=== PATIENT | male | born 1945 | race American Indian/Alaskan Native ===

== ENCOUNTER 2017-01-04 07:37 | Inpatient (IN) | payer MEDICARE ==
[2017-01-04] MEDS ORDERED: KETOROLAC 60 MG/2 ML VIAL IVP STA (07:55)
[2017-01-04] MEDS ORDERED: IPRATROPIUM-ALBUTEROL 3 ML NEB INHALATION STA (07:55)
--- NOTE | 2017-01-04 07:59 | ED ---
General Adult HPI - General Chief complaint: Extremity Problem,Nontraumatic Stated complaint: LEFT SIDE PAIN, FULL SIDE Time Seen by Provider: 01/04/17 07:40 Source: patient, RN notes reviewed Mode of arrival: ambulatory Limitations: no limitations - History of Present Illness Initial comments: This is a 71-year-old male who presents to the emergency department complaining of left shoulder pain and left hip pain and left lower leg pain. Patient states his been ongoing for a month and certain movements make it worse and if he lays on that side it makes it worse as well. Patient states he doesn't remember injuring those areas but the pain is getting worse and worse to the point where he can't stand it anymore. Patient states he has not seen his doctor in the last month for this. She denies any redness or any swelling. Patient denies any numbness or tingling. Patient denies any neck pain or headache. Patient does state he has a history of asthma and COPD. Patient states he quit smoking 8 years ago. Patient denies any recent fevers or chills. Patient denies any abdominal pain patient denies nausea vomiting or diarrhea. Patient denies any back pain - Related Data Home Medications Medication Instructions Recorded Confirmed Albuterol Inhaler [Ventolin Hfa 1 - 2 puff INHALATION RT-QID PRN 01/30/16 Inhaler] Albuterol Nebulized [Ventolin 2.5 mg INHALATION RT-Q4H PRN 08/24/16 08/24/16 Nebulized] Budesonide-Formot 160-4.5 Mcg 2 puff INHALATION RT-BID 08/24/16 08/24/16 [Symbicort 160-4.5 Mcg Inhaler] Metoprolol Tartrate [Lopressor] 12.5 mg PO BID 08/24/16 08/24/16 Naproxen 500 mg PO BID PRN 08/24/16 08/24/16 Omeprazole 40 mg PO AC-BRKFST 08/24/16 08/24/16 Previous Rx's Medication Instructions Recorded Cefuroxime Axetil [Ceftin] 500 mg PO BID #20 tablet 08/28/16 Allergies Allergy/AdvReac Type Severity Reaction Status Date / Time No Known Allergies Allergy Verified 01/04/17 07:46 Review of Systems ROS Statement: Those systems with pertinent positive or pertinent negative responses have been documented in the HPI. ROS Other: All systems not noted in ROS Statement are negative. Past Medical History Past Medical History: GERD/Reflux, Hypertension Additional Past Medical History / Comment(s): maleria, prn home O2 use History of Any Multi-Drug Resistant Organisms: None Reported Past Surgical History: Bowel Resection Additional Past Surgical History / Comment(s): colonoscopy Past Anesthesia/Blood Transfusion Reactions: No Reported Reaction Past Psychological History: No Psychological Hx Reported Smoking Status: Former smoker Past Alcohol Use History: Daily Past Drug Use History: None Reported - Past Family History Father History Unknown: Yes Mother Family Medical History: COPD Sister(s) Family Medical History: No Reported History Brother(s) Family Medical History: No Reported History Daughter(s) Family Medical History: Myocardial Infarction ([place]) Son(s) Family Medical History: No Reported History General Exam - General Exam Comments Initial Comments: GENERAL: Patient is well-developed and well-nourished. Patient is nontoxic and well- hydrated and is in mild distress. ENT: Neck is soft and supple. No significant lymphadenopathy is noted. Oropharynx is clear. Moist mucous membranes. Neck has full range of motion without eliciting any pain. EYES: The sclera were anicteric and conjunctiva were pink and moist. Extraocular movements were intact and pupils were equal round and reactive to light. Eyelids were unremarkable. PULMONARY: Patient has diffuse expiratory wheezing CARDIOVASCULAR: Patient is tachycardic. ABDOMEN: Soft and nontender with normal bowel sounds. No palpable organomegaly was noted. There is no palpable pulsatile mass. SKIN: Skin is clear with no lesions or rashes and otherwise unremarkable. NEUROLOGIC: Patient is alert and oriented x3. Cranial nerves II through XII are grossly intact. Motor and sensory are also intact. Normal speech, volume and content. Symmetrical smile. MUSCULOSKELETAL: Normal extremities with adequate strength and full range of motion. 1+ edema bilaterally. Patient's shoulder hurts when he moves it in certain directions but is not always in the same direction. Patient's hip hurts with external rotation in the lower leg hurts when he bends his knee. There is no areas of swelling or redness no indication of any trauma. LYMPHATICS: No significant lymphadenopathy is noted PSYCHIATRIC: Normal psychiatric evaluation. Normal interpersonal interactions appears functionally intact in deals appropriately with others. No signs of depression. No signs of anxiety. Limitations: no limitations Course Vital Signs 01/04/17 01/04/17 01/04/17 07:40 08:06 08:15 Temperature 98.8 F Pulse Rate 108 H 84 88 Respiratory 20 Rate Blood Pressure 159/73 O2 Sat by Pulse 100 Oximetry 01/04/17 08:40 Temperature Pulse Rate 95 Respiratory 20 Rate Blood Pressure 132/61 O2 Sat by Pulse 100 Oximetry Medical Decision Making - Medical Decision Making Patient's chest x-ray shows no acute abnormality. Shoulder x-ray shows no acute abnormality. Hip and pelvis x-ray shows no acute abnormality Patient had a breathing treatment in the emergency department after I listened to him he sounded much improved he did state he felt better. Patient's hemoglobin was 6.4 slightly gave the patient 1 unit of packed red blood cells and admitted the patient I spoke with Dr. Sterling admitted the patient and wrote admitting orders. EKG shows normal sinus rhythm at 91 bpm UT interval 170 QRS is 86 QT interval 370 QTC is 455 patient's EKG shows a little ST segment depression inferiorly when compared to an old EKG. A troponin will be added to the patient's labwork - Lab Data Result diagrams: 01/04/17 08:10 01/04/17 08:10 Lab Results 01/04/17 01/04/17 01/04/17 Range/Units 08:10 08:10 08:10 WBC 13.7 H (3.8-10.6) k/uL RBC 3.35 L (4.30-5.90) m/uL Hgb 6.4 L* (13.0-17.5) gm/dL Hct 24.4 L (39.0-53.0) % MCV 72.8 L (80.0-100.0) fL MCH 19.0 L (25.0-35.0) pg MCHC 26.1 L (31.0-37.0) g/dL RDW 18.9 H (11.5-15.5) % Plt Count 235 (150-450) k/uL Neutrophils % 63 % Lymphocytes % 13 % Monocytes % 6 % Eosinophils % 14 % Basophils % 1 % Neutrophils # 8.5 H (1.3-7.7) k/uL Lymphocytes # 1.8 (1.0-4.8) k/uL Monocytes # 0.8 (0-1.0) k/uL Eosinophils # 2.0 H (0-0.7) k/uL Basophils # 0.1 (0-0.2) k/uL Polychromasia Present Hypochromasia Marked Poikilocytosis Slight Anisocytosis Slight Microcytosis Moderate Target Cells Present PT (9.0-12.0) sec INR (<1.1) APTT (22.0-30.0) sec Sodium 140 (137-145) mmol/L Potassium 4.7 (3.5-5.1) mmol/L Chloride 103 (98-107) mmol/L Carbon Dioxide 27 (22-30) mmol/L Anion Gap 10 mmol/L BUN 6 L (9-20) mg/dL Creatinine 0.66 (0.66-1.25) mg/dL Est GFR (MDRD) Af Amer >60 (>60 ml/min/1.73 sqM) Est GFR (MDRD) Non-Af >60 (>60 ml/min/1.73 sqM) Glucose 137 H (74-99) mg/dL Calcium 9.3 (8.4-10.2) mg/dL Magnesium 2.0 (1.6-2.3) mg/dL Total Bilirubin 1.0 (0.2-1.3) mg/dL AST 31 (17-59) U/L ALT 25 (21-72) U/L Alkaline Phosphatase 103 (38-126) U/L Total Protein 7.1 (6.3-8.2) g/dL Albumin 3.6 (3.5-5.0) g/dL 01/04/17 Range/Units 08:10 WBC (3.8-10.6) k/uL RBC (4.30-5.90) m/uL Hgb (13.0-17.5) gm/dL Hct (39.0-53.0) % MCV (80.0-100.0) fL MCH (25.0-35.0) pg MCHC (31.0-37.0) g/dL RDW (11.5-15.5) % Plt Count (150-450) k/uL Neutrophils % % Lymphocytes % % Monocytes % % Eosinophils % % Basophils % % Neutrophils # (1.3-7.7) k/uL Lymphocytes # (1.0-4.8) k/uL Monocytes # (0-1.0) k/uL Eosinophils # (0-0.7) k/uL Basophils # (0-0.2) k/uL Polychromasia Hypochromasia Poikilocytosis Anisocytosis Microcytosis Target Cells PT 11.7 (9.0-12.0) sec INR 1.2 (<1.1) APTT 23.7 (22.0-30.0) sec Sodium (137-145) mmol/L Potassium (3.5-5.1) mmol/L Chloride (98-107) mmol/L Carbon Dioxide (22-30) mmol/L Anion Gap mmol/L BUN (9-20) mg/dL Creatinine (0.66-1.25) mg/dL Est GFR (MDRD) Af Amer (>60 ml/min/1.73 sqM) Est GFR (MDRD) Non-Af (>60 ml/min/1.73 sqM) Glucose (74-99) mg/dL Calcium (8.4-10.2) mg/dL Magnesium (1.6-2.3) mg/dL Total Bilirubin (0.2-1.3) mg/dL AST (17-59) U/L ALT (21-72) U/L Alkaline Phosphatase (38-126) U/L Total Protein (6.3-8.2) g/dL Albumin (3.5-5.0) g/dL Critical Care Time Critical Care Time: Yes Total Critical Care Time: 35 Disposition Clinical Impression: Anemia, Acute exacerbation of chronic obstructive pulmonary disease (COPD) Disposition: ADMITTED IP TO THIS HOSP Referrals: Curt Tyson DO [Primary Care Provider] - 1-2 days Time of Disposition: 09:28
[2017-01-04 08:44] LABS: Anisocytosis Slight; Basophils # (A) 0.1 k/uL (0-0.2); Basophils % (A) 1 %; CH 18.8; CHCM 26.1; Eosinophils % (A) 14 %; HCT 24.4 % (39.0-53.0); HDW 3.57; Hypochromasia Marked; Luc # (Auto) 0.45; Luc % (Auto) 3; Lymphocytes # (A) 1.8 k/uL (1.0-4.8); Lymphocytes % (A) 13 %; MCV 72.8 fL (80.0-100.0); Mean Platelet Volume 7.1; Microcytosis Moderate; Monocytes # (A) 0.8 k/uL (0-1.0); Monocytes % (A) 6 %; Neutrophils # (A) 8.5 k/uL (1.3-7.7); Neutrophils % (A) 63 %; Poikilocytosis Slight; RBC 3.35 m/uL (4.30-5.90); RDW 18.9 % (11.5-15.5); WBC 13.7 k/uL (3.8-10.6); WBC (Perox) 13.92
[2017-01-04 08:46] LABS: ALT 25 U/L (21-72); AST 31 U/L (17-59); Alkaline Phosphatase 103 U/L (38-126); Anion Gap 10 mmol/L; Blood Urea Nitrogen 6 mg/dL (9-20); Calcium 9.3 mg/dL (8.4-10.2); Carbon Dioxide 27 mmol/L (22-30); Chloride 103 mmol/L (98-107); Glucose 137 mg/dL (74-99); Non-African American GFR(MDRD) >60 (>60 ml/min/1.73 sqM); Potassium 4.7 mmol/L (3.5-5.1); Sodium 140 mmol/L (137-145); Total Protein 7.1 g/dL (6.3-8.2)
--- NOTE | 2017-01-04 08:47 | XR ---
EXAMINATION TYPE: XR shoulder complete LT DATE OF EXAM: 01/04/2017 8:42 AM CLINICAL HISTORY: pain COMPARISON: NONE TECHNIQUE: Three views of the left shoulder are obtained. FINDINGS: There is no acute fracture/dislocation evident. The acromioclavicular and glenohumeral coral int spaces appear within normal limits. Small focus of calcific tendinopathy. The visualized ribs ar e intact and unremarkable. IMPRESSION: 1. There is no acute fracture or dislocation. ICD 10 NO FRACTURE, INITIAL EVALUATION
--- NOTE | 2017-01-04 08:47 | XR ---
EXAMINATION TYPE: XR chest 2V DATE OF EXAM: 01/04/2017 8:42 AM COMPARISON: 08/28/2016 HISTORY: Shortness of breath TECHNIQUE: Frontal and lateral views of the chest are obtained. FINDINGS: Scattered senescent parenchymal changes noted. Hyperinflation compatible with COPD. No evidence for infiltrate. No evidence for atelectasis. Heart size is stable. Mediastinal structures are stable and grossly unremarkable. No evidence for hilar prominence. Degenerative changes dorsal spine. IMPRESSION: 1. No evidence for acute pulmonary disease.
--- NOTE | 2017-01-04 08:48 | XR ---
EXAMINATION TYPE: XR Hip LT and AP Pelvis DATE OF EXAM: 01/04/2017 8:42 AM COMPARISON: NONE HISTORY: Pain TECHNIQUE: A single AP view of the pelvis is obtained. Two views of the left hip are obtained. FINDINGS: There is no acute fracture/dislocation evident in the pelvis or left hip. The hip and sac roiliac joints appear symmetric and unremarkable. The overlying soft tissue appears unremarkable. IMPRESSION: There is no acute fracture or dislocation in the pelvis or left hip.
[2017-01-04 08:54] LABS: HGB 6.4 gm/dL (13.0-17.5); MCHC 26.1 g/dL (31.0-37.0)
[2017-01-04 09:06] LABS: Polychromasia Present; Target Cells Present
[2017-01-04 09:18] LABS: INR 1.2 (<1.1); Partial Thromboplastin Time 23.7 sec (22.0-30.0); Prothrombin Time 11.7 sec (9.0-12.0)
[2017-01-04] MEDS ORDERED: methylPREDNISolone SOD SUCCI 125 MG/2 ML VIAL IV STA (09:29)
[2017-01-04] MEDS ORDERED: IPRATROPIUM-ALBUTEROL 3 ML NEB INHALATION PRN (09:29)
[2017-01-04 14:15] VITALS: BMI 30.9
[2017-01-04] MEDS ORDERED: LORazepam 2 MG/ML SYRINGE IV PRN ×3 (14:27)
[2017-01-04] MEDS: METOPROLOL TARTRATE 12.5 MG TAB PO SCH ×2 (14:52→22:08)
[2017-01-04] MEDS: HYDROcodone/APAP 7.5-325MG 1 EACH TAB PO PRN ×2 (14:52→22:11)
--- NOTE | 2017-01-04 14:53 | HP ---
DATE OF ADMISSION: CHIEF COMPLAINT: Pain in the left shoulder and left hip. HISTORY OF PRESENT ILLNESS: Mr. Griffiths is a 71-year-old male with a past medical history of GERD, hypertension, chronic anemia, alcohol abuse coming to the hospital stating that he has been having pain in the left shoulder and the left hip joint that have been going on for the past one month. Patient states that moving makes it worse and if he lays on the left side it makes it worse as well. Patient denies having any history of trauma and lately patient has been having fatigue tiredness and some shortness of breath that is unusual for him. The patient had a recent hospital admission in August 2016 for anemia. He had low hemoglobin level, but did not get any kind of workup in the hospital and was advised to follow up as outpatient but he did not. So at the time of admission yesterday, his hemoglobin was found to be low at 6.4 and so he was admitted for further evaluation of it. REVIEW OF SYSTEMS: CONSTITUTIONAL: He denies having any fevers, chills, or rigors. RESPIRATORY: Patient has chronic cough. No increased sputum production, no fever, no chills. CARDIAC: Patient complains of chest tightness, but no chest pain or palpitations. GI: No abdominal pain, nausea, vomiting, or diarrhea. He denies having any blood in his stools and no weight loss reported. : No dysuria or hematuria. PROFESSIONAL SYSTEM ADMINISTRATOR: Denies having any headaches, blurring of his vision or gait abnormalities or focal weakness. MUSCULOSKELETAL: The patient complains of chronic pain in his left shoulder and left hip joint and also his left elbow and left knee joint, which are chronic, but no swelling. PSYCHIATRIC: Patient does not have history of any psychiatric issues. All 13 review of systems are done and negative except for ones mentioned in the HPI. Past medical history is significant for chronic anemia, has COPD, hypertension, and GERD. ALLERGIES: No known drug allergies. Patient's home medications: 1. Albuterol 1 to 2 puffs b.i.d. p.r.n. for shortness of breath. 2. Symbicort 160/4.5 two puffs b.i.d. 3. Metoprolol 12.5 mg p.o. b.i.d. 4. Omeprazole 40 mg p.o. before breakfast. 5. Naproxen 500 mg p.o. b.i.d. 6. Motrin 200 mg p.o. q.6 hours p.r.n. for pain. PAST SURGICAL HISTORY: He has history of bowel resection and colonoscopy, done 6 years back. Family history of hypertension and COPD. SOCIAL HISTORY: The patient consumes alcohol every day 10 to 12 beers along with some hard liquor. He is a former smoker. On examination, patient's vitals: Temperature is 98, heart rate 95, respiratory rate 16, blood pressure 170/74, saturating at 98% on 2 L of nasal cannula. GENERAL EXAMINATION: Obese male, lying in bed, appears to be in no acute distress. HEAD: Atraumatic, normocephalic. EYES: Mild pallor. No icterus. NECK: No JVD. No thyromegaly. CARDIOVASCULAR: S1, S2 heard. LUNGS: Bilateral breath sounds are positive, diminished in all lung maurer. No wheezes or crackles. ABDOMEN: Soft, nontender. Bowel sounds positive. Organomegaly difficult to appreciate due to obese body habitus. EXTREMITIES: No edema. No swelling. No cyanosis. No clubbing. Peripheral pulses are felt. PROFESSIONAL SYSTEM ADMINISTRATOR: Awake, alert, oriented x3. No focal deficits. PSYCHIATRIC: Appropriate mood and affect. MUSCULOSKELETAL: Examination of the left shoulder, mild crepitus. Left knee no swellings or deformities. No warmth or redness. Patient is currently getting a blood transfusion. LABS: Hemoglobin 6.4, platelets of 235, white count of 13.7. Sodium 140, potassium 4.7, chloride 103, bicarb 27, BUN 6, creatinine 0.66. Troponin less than 0.012. Albumin is 3.6. ASSESSMENT AND PLAN: 1. Chronic anemia, most likely secondary to chronic blood loss. Patient is currently getting a blood transfusion. Will check iron profile, B12 and thiamine levels. We will also consult GI as previously in his previous visit no workup was done for this. 2. History of chronic obstructive pulmonary disease, not in exacerbation. 3. Hypertension. 4. Gastroesophageal reflux disease. 5. Alcohol abuse. Continue to watch for delirium tremens and continue with CIWA scale. PLAN: Plan is to continue the patient on the current medication regimen and further recommendations depending upon the progress of the patient.
[2017-01-04 15:40] LABS: Anisocytosis Slight; Basophils # (A) 0.1 k/uL (0-0.2); Basophils % (A) 0 %; CH 19.8; CHCM 26.6; Eosinophils # (A) 0.2 k/uL (0-0.7); Eosinophils % (A) 1 %; HCT 28.8 % (39.0-53.0); HDW 4.36; HGB 7.6 gm/dL (13.0-17.5); Hypochromasia Marked; Luc % (Auto) 1; Lymphocytes # (A) 0.7 k/uL (1.0-4.8); Lymphocytes % (A) 6 %; MCH 19.8 pg (25.0-35.0); MCV 74.9 fL (80.0-100.0); Mean Platelet Volume 9.1; Microcytosis Moderate; Monocytes # (A) 0.2 k/uL (0-1.0); Monocytes % (A) 2 %; Neutrophils # (A) 10.5 k/uL (1.3-7.7); Neutrophils % (A) 90 %; Poikilocytosis Moderate; RBC 3.84 m/uL (4.30-5.90); RDW 18.8 % (11.5-15.5); WBC 11.7 k/uL (3.8-10.6); WBC (Perox) 12.15
[2017-01-04 15:42] LABS: MCHC 26.4 g/dL (31.0-37.0)
[2017-01-04 15:49] LABS: Large Platelets Present; Manual Review Performed
[2017-01-04] MEDS: IPRATROPIUM-ALBUTEROL 3 ML NEB INHALATION PRN ×2 (16:10→20:15)
[2017-01-04 16:59] LABS: Glucose,Whole Blood 222 mg/dL (75-99)
[2017-01-04] MEDS: methylPREDNISolone SOD SUCCI 125 MG/2 ML VIAL IV SCH ×2 (17:56→23:23)
[2017-01-04] MEDS: INSULIN LISPRO (humaLOG) 300 UNIT/3 ML VIAL SQ SCH ×2 (17:57→21:46)
[2017-01-04] MEDS: SYMBICORT 160-4.5 MCG INHALER INHALATION SCH (20:15)
[2017-01-04 21:23] LABS: Anisocytosis Slight; CHCM 26.8; HCT 26.5 % (39.0-53.0); HDW 4.51; HGB 7.2 gm/dL (13.0-17.5); Hypochromasia Marked; MCH 20.3 pg (25.0-35.0); Mean Platelet Volume 7.9; Microcytosis Moderate; Poikilocytosis Moderate; RBC 3.53 m/uL (4.30-5.90); RDW 18.8 % (11.5-15.5); WBC 11.2 k/uL (3.8-10.6)
[2017-01-04 21:25] LABS: MCHC 27.1 g/dL (31.0-37.0)
[2017-01-04 21:32] LABS: Glucose,Whole Blood 252 mg/dL (75-99)
[2017-01-05] MEDS: methylPREDNISolone SOD SUCCI 125 MG/2 ML VIAL IV SCH ×4 (06:35→23:14)
[2017-01-05] MEDS: SYMBICORT 160-4.5 MCG INHALER INHALATION SCH ×2 (07:30→20:17)
[2017-01-05] MEDS: IPRATROPIUM-ALBUTEROL 3 ML NEB INHALATION PRN ×4 (07:30→20:17)
[2017-01-05 07:52] LABS: Glucose,Whole Blood 273 mg/dL (75-99)
[2017-01-05] MEDS: PANTOPRAZOLE 40 MG TABLET PO SCH (08:17)
[2017-01-05] MEDS: METOPROLOL TARTRATE 12.5 MG TAB PO SCH ×2 (08:18→21:54)
[2017-01-05] MEDS: INSULIN LISPRO (humaLOG) 300 UNIT/3 ML VIAL SQ SCH ×4 (08:18→21:54)
[2017-01-05 08:48] LABS: Anion Gap 10 mmol/L; Blood Urea Nitrogen 13 mg/dL (9-20); Calcium 9.2 mg/dL (8.4-10.2); Carbon Dioxide 23 mmol/L (22-30); Chloride 103 mmol/L (98-107); Glucose 272 mg/dL (74-99); Iron 16 ug/dL (49-181); Non-African American GFR(MDRD) >60 (>60 ml/min/1.73 sqM); Sodium 136 mmol/L (137-145)
[2017-01-05 08:51] LABS: Anisocytosis Slight; Basophils % (A) 0 %; CH 19.8; CHCM 26.4; Eosinophils % (A) 0 %; HCT 28.3 % (39.0-53.0); HDW 4.36; HGB 7.5 gm/dL (13.0-17.5); Hypochromasia Marked; Luc # (Auto) 0.08; Luc % (Auto) 1; Lymphocytes # (A) 1.1 k/uL (1.0-4.8); Lymphocytes % (A) 9 %; MCH 20.1 pg (25.0-35.0); MCV 75.7 fL (80.0-100.0); Mean Platelet Volume 7.4; Microcytosis Moderate; Monocytes # (A) 0.4 k/uL (0-1.0); Monocytes % (A) 3 %; Neutrophils # (A) 11.5 k/uL (1.3-7.7); Neutrophils % (A) 88 %; Poikilocytosis Moderate; RBC 3.74 m/uL (4.30-5.90); RDW 18.9 % (11.5-15.5); WBC 13.1 k/uL (3.8-10.6); WBC (Perox) 13.37
[2017-01-05 08:54] LABS: MCHC 26.6 g/dL (31.0-37.0)
[2017-01-05 08:58] LABS: % Iron Saturation 3.7 % (20-50); Total Iron Binding Capacity 438 ug/dL (261-462)
[2017-01-05 09:40] LABS: Polychromasia Present; Stomatocytes Present
[2017-01-05 09:41] LABS: Toxic Granulation Present
[2017-01-05 09:54] LABS: Vitamin B12 662 pg/mL
[2017-01-05] MEDS: HYDROcodone/APAP 7.5-325MG 1 EACH TAB PO PRN (12:04)
[2017-01-05 12:20] LABS: Glucose,Whole Blood 256 mg/dL (75-99)
[2017-01-05] MEDS ORDERED: HYDROcodone/APAP 7.5-325MG 1 EACH TAB PO PRN (15:34)
[2017-01-05] MEDS: LEVOFLOXACIN 750MG-D5W PMX 750 MG in DEXTROSE/WATER 1 150ML.BAG IVPB SCH (16:29)
[2017-01-05 17:28] LABS: Glucose,Whole Blood 287 mg/dL (75-99)
[2017-01-05 21:06] LABS: Glucose,Whole Blood 246 mg/dL (75-99)
--- NOTE | 2017-01-06 03:07 | P.CONS ---
History of Present Illness - Reason for Consult Consult date: 01/05/17 - History of Present Illness The patient is a 71-year old male with history of COPD was admitted because of left shoulder and hi pains as well as anemia with SOB. The patient was hospitalized in August 2016 with profound anemia and at that time he declined endoscopic workup and wanted to have it done as outpatient through the [place] which has not been done yet. Denies overt bleeding. Apparently had bowel surgery and prior colonoscopy around 4-5 years ago? Review of Systems Constitutional: Denied fever, chills or unintentional weight loss Neurologic: No headahes, double vision or sensory or motor changes Cardiopulmonary: No chest pains, SOB or palpitations Gastrointestinal: See PI above Genitourinary: No hematuria, dysuria or frequency Endocrine: No polyphagia or polydypsia Hematology: No bleeding tendency or bruising Skin: No rashes Psychiatric: No anxiety or depression Past Medical History Past Medical History: COPD, GERD/Reflux, Hypertension Additional Past Medical History / Comment(s): maleria, prn home O2 use History of Any Multi-Drug Resistant Organisms: None Reported Past Surgical History: Bowel Resection Additional Past Surgical History / Comment(s): colonoscopy Past Anesthesia/Blood Transfusion Reactions: No Reported Reaction Past Psychological History: No Psychological Hx Reported Smoking Status: Former smoker Past Alcohol Use History: Daily Additional Past Alcohol Use History / Comment(s): pt. states he has cut back on alcohol consumption, pt. reports drinking 8 beers daily Past Drug Use History: None Reported - Past Family History Father History Unknown: Yes Mother Family Medical History: COPD Sister(s) Family Medical History: No Reported History Brother(s) Family Medical History: No Reported History Daughter(s) Family Medical History: Myocardial Infarction ([place]) Son(s) Family Medical History: No Reported History Medications and Allergies Home Medications Medication Instructions Recorded Confirmed Type Albuterol Inhaler [Ventolin Hfa 1 - 2 puff INHALATION RT-QID PRN 01/30/16 History Inhaler] Albuterol Nebulized [Ventolin 2.5 mg INHALATION RT-Q4H PRN 08/24/16 01/12/17 History Nebulized] Budesonide-Formot 160-4.5 Mcg 2 puff INHALATION RT-BID 08/24/16 01/12/17 History [Symbicort 160-4.5 Mcg Inhaler] Metoprolol Tartrate [Lopressor] 12.5 mg PO BID 08/24/16 01/12/17 History Naproxen 500 mg PO BID PRN 08/24/16 01/12/17 History Omeprazole 40 mg PO AC-BRKFST 08/24/16 01/12/17 History Ibuprofen [Motrin] 400 mg PO Q6HR PRN 01/04/17 01/12/17 History Allergies Allergy/AdvReac Type Severity Reaction Status Date / Time No Known Allergies Allergy Verified 01/12/17 08:08 Physical Exam Vitals: Vital Signs Temp Pulse Pulse Resp BP Pulse Ox 01/05/17 20:31 91 01/05/17 20:18 91 01/05/17 16:15 89 01/05/17 16:04 89 99 01/05/17 15:00 96.7 F L 95 22 149/72 97 01/05/17 12:00 88 01/05/17 11:49 84 01/05/17 07:47 88 01/05/17 07:30 86 01/05/17 07:00 97.6 F 103 H 22 138/72 95 Intake and Output 01/05/17 01/05/17 01/06/17 14:59 22:59 06:59 Intake Total 520 Balance 520 Intake: Oral 520 Other: # Voids 3 General appearance: The patient is alert, oriented, in no acute distress. HET: Head is normocephalic and atraumatic. Pupils are equal and reactive. Oropharynx is clear without lesions. Neck: Supple without lymphadenopathy. Trachea midline. Heart: S1 S2. Regular rate and rhythm. Lungs: No crackles or wheezes are heard. Abdomen: Soft, diffuse upper epigastric pain, nondistended with bowel sounds. No peritoneal signs. No palpable organomegaly or masses. Extremities: Normal skin color and turgor. No cyanosis, rash, ulceration, clubbing, or edema. Radial and pedal pulses are 2/4 bilaterally. Neurological: No focal deficits. Strength and sensation are grossly intact. Results CBC & Chem 7: 01/07/17 09:32 01/07/17 09:32 Labs: Abnormal Lab Results - Last 24 Hours (Table) 02/05/17 02/05/17 02/05/17 Range/Units 07:49 08:06 08:06 WBC 13.1 H (3.8-10.6) k/uL RBC 3.74 L (4.30-5.90) m/uL Hgb 7.5 L (13.0-17.5) gm/dL Hct 28.3 L (39.0-53.0) % MCV 75.7 L (80.0-100.0) fL MCH 20.1 L (25.0-35.0) pg MCHC 26.6 L (31.0-37.0) g/dL RDW 18.9 H (11.5-15.5) % Neutrophils # 11.5 H (1.3-7.7) k/uL Sodium 136 L (137-145) mmol/L Glucose 272 H (74-99) mg/dL POC Glucose (mg/dL) 273 H (75-99) mg/dL Iron 16 L (49-181) ug/dL % Saturation 3.7 L (20-50) % 01/05/17 01/05/17 01/05/17 Range/Units 12:16 17:22 20:50 WBC (3.8-10.6) k/uL RBC (4.30-5.90) m/uL Hgb (13.0-17.5) gm/dL Hct (39.0-53.0) % MCV (80.0-100.0) fL MCH (25.0-35.0) pg MCHC (31.0-37.0) g/dL RDW (11.5-15.5) % Neutrophils # (1.3-7.7) k/uL Sodium (137-145) mmol/L Glucose (74-99) mg/dL POC Glucose (mg/dL) 256 H 287 H 246 H (75-99) mg/dL Iron (49-181) ug/dL % Saturation (20-50) % Assessment and Plan Plan: 71-year old male with profound aanemia. Will consider EGD and colonoscopy if he agrees.
[2017-01-06] MEDS: methylPREDNISolone SOD SUCCI 125 MG/2 ML VIAL IV SCH ×3 (06:04→18:47)
[2017-01-06 07:25] LABS: Glucose,Whole Blood 282 mg/dL (75-99)
[2017-01-06 08:07] LABS: Anisocytosis Slight; Basophils % (A) 0 %; CH 19.8; Eosinophils % (A) 0 %; HCT 27.1 % (39.0-53.0); HGB 7.2 gm/dL (13.0-17.5); Hypochromasia Marked; Luc # (Auto) 0.12; Luc % (Auto) 1; Lymphocytes # (A) 0.8 k/uL (1.0-4.8); Lymphocytes % (A) 5 %; MCH 20.3 pg (25.0-35.0); MCV 76.6 fL (80.0-100.0); Mean Platelet Volume 7.5; Microcytosis Slight; Monocytes # (A) 0.4 k/uL (0-1.0); Monocytes % (A) 3 %; Neutrophils # (A) 13.1 k/uL (1.3-7.7); Neutrophils % (A) 91 %; Poikilocytosis Moderate; RBC 3.54 m/uL (4.30-5.90); RDW 18.7 % (11.5-15.5); WBC 14.4 k/uL (3.8-10.6); WBC (Perox) 15.74
[2017-01-06] MEDS: SYMBICORT 160-4.5 MCG INHALER INHALATION SCH ×2 (08:07→19:45)
[2017-01-06 08:14] LABS: Anion Gap 11 mmol/L; Blood Urea Nitrogen 14 mg/dL (9-20); Calcium 9.3 mg/dL (8.4-10.2); Carbon Dioxide 25 mmol/L (22-30); Chloride 102 mmol/L (98-107); Glucose 243 mg/dL (74-99); Non-African American GFR(MDRD) >60 (>60 ml/min/1.73 sqM); Potassium 4.7 mmol/L (3.5-5.1); Sodium 138 mmol/L (137-145)
[2017-01-06 08:15] LABS: MCHC 26.5 g/dL (31.0-37.0)
[2017-01-06] MEDS: PANTOPRAZOLE 40 MG TABLET PO SCH (08:21)
[2017-01-06] MEDS: INSULIN LISPRO (humaLOG) 300 UNIT/3 ML VIAL SQ SCH ×4 (08:21→22:25)
[2017-01-06] MEDS: METOPROLOL TARTRATE 12.5 MG TAB PO SCH ×2 (08:21→22:24)
[2017-01-06] MEDS: IPRATROPIUM-ALBUTEROL 3 ML NEB INHALATION PRN ×2 (11:53→19:45)
[2017-01-06 11:56] LABS: Glucose,Whole Blood 246 mg/dL (75-99)
[2017-01-06] MEDS: LEVOFLOXACIN 750MG-D5W PMX 750 MG in DEXTROSE/WATER 1 150ML.BAG IVPB SCH (12:07)
[2017-01-06 16:48] LABS: Glucose,Whole Blood 238 mg/dL (75-99)
--- NOTE | 2017-01-06 17:09 | PN ---
DATE OF SERVICE: 01/05/2017 INTERVAL HISTORY: Mr. Griffiths is a 71-year-old male with a past medical history of GERD, hypertension, chronic anemia, alcohol abuse, coming into the hospital for left shoulder and left hip pain. But at the time of admission his hemoglobin was found to be 6.4, and he was admitted to the hospital for further evaluation. Patient received one unit of PRBCs and his hemoglobin has been 7.5. Patient states that his difficulty in breathing has worsened. As per the nursing staff report, he has been coughing up thick yellowish sputum and also has wheezing. REVIEW OF SYSTEMS: CONSTITUTIONAL: He denies having any fevers, chills. RESPIRATORY: Increased shortness of breath and cough with productive sputum. CARDIAC: Complains of chest tightness. No palpitations. GI: No abdominal pain, nausea, vomiting or diarrhea. : No dysuria or hematuria. Patient's medications have been reviewed. On examination, patient's vital signs are temperature 96.7, heart rate 95, respiratory rate 22, blood pressure 149/72. Saturating at 97% on 2 L of nasal cannula. GENERAL EXAMINATION: Obese male. Sitting up in the bed. Appears to be in no acute distress. HEAD: Atraumatic, normocephalic. ( ) mild pallor. No icterus. NECK: No JVD. No thyromegaly. CARDIOVASCULAR: S1, S2 heard. LUNGS: Coarse breath sounds in all lung maurer with diffuse wheezing. ABDOMEN: Soft, nontender. Bowel sounds positive. Organomegaly cannot be appreciated due to obese body habitus. EXTREMITIES: No edema. No swelling. No cyanosis. No clubbing. Peripheral pulses are felt. RESIDENT SERVICES MANAGER: Alert, awake, oriented x3. PSYCHIATRIC: Appropriate mood and affect. PATIENT'S LABS: White count of 13.1. Hemoglobin is 7.5, platelets of 239. Sodium 136, potassium 5, chloride 103, bicarb 23. BUN 13, creatinine 0.70. ASSESSMENT AND PLAN: 1. Chronic anemia, most likely secondary to chronic blood loss. Patient received 1 unit of PRBCs, after which his hemoglobin has been stable at 7.5. No active bleeding. Patient's iron profile shows iron deficiency anemia. His B12 and folate levels are within normal range. 2. Acute exacerbation of chronic obstructive pulmonary disease. Will start the patient on levofloxacin, continue with breathing treatments and Solu-Medrol. 3. Hypertension. 4. Gastroesophageal reflux disease. 5. Alcohol abuse. 6. Obesity with body mass index of 31. PLAN: The plan is to continue the patient on current medication regimen, antibiotics in the form of levofloxacin, breathing treatments, IV steroids. GI consult currently pending but his chronic anemia. Further recommendations to follow depending on the progress of the patient.
[2017-01-06] MEDS ORDERED: PEG 3350-NA SULF,BICARB,CL/KCL 4,000 ML BOTTLE PO ONE (18:00)
--- NOTE | 2017-01-06 20:25 | PN ---
Mr. Griffiths is 71-year-old male with a past medical history of GERD, hypertension, chronic anemia, alcohol abuse, coming to the hospital stating that he was having left shoulder and left hip pain, but on checking his labs, patient's hemoglobin was found to be at 6.5, so the patient was admitted for anemia with low hemoglobin levels. The patient received 1 unit of PRBCs. Hemoglobin has been stable, around 7. In the meantime, he developed difficulty in breathing and had coarse breath sounds and so he is also being treated for COPD exacerbation with levofloxacin, IV steroids and breathing treatments. Patient showed significant improvement in his breathing status from yesterday. Yesterday patient was having coarse breath sounds all over, but today he does not have any wheezes or coarse breath sounds, but diminished breath sounds in all lung maurer. REVIEW OF SYSTEMS: CONSTITUTIONAL: He denies having any fevers, chills or rigors. Complains of generalized weakness. RESPIRATORY: His difficulty in breathing is better. CARDIAC: No chest pain. No palpitation. GI: No abdominal pain, nausea, vomiting or diarrhea. He denies having any blood in his stools. No history of recent weight loss. Patient's medications have been reviewed. On examination, patient's vital signs: Temperature 96.3, heart rate of 92, respiratory rate 18, blood pressure is 144/76, saturating at 97% on 3L of nasal cannula. GENERAL: Obese male sitting up in the bed, appears to be no acute distress. HEAD: Atraumatic, normocephalic. EYES: Pupils round and reactive to light. Mild pallor. No icterus. NECK: No JVD. No thyromegaly. CARDIOVASCULAR: S1, S2 heard. LUNGS:, Diminished breath sounds in all lung maurer, but no coarse breath sounds or crackles. ABDOMEN: Soft. Bowel sounds positive. Organomegaly cannot be appreciated due to obese body habitus. EXTREMITIES: No edema. No cyanosis. No clubbing. ORDER MAKE UP CLERK: Alert, awake, oriented x3. No focal deficits. PSYCHIATRIC: Appropriate mood and affect. MUSCULOSKELETAL: No joint swelling or deformity. Patient's labs: White count of 14.4, hemoglobin is 7.2, platelets of 227. Sodium 138, potassium 4.7, chloride 102, bicarb 25, BUN 14, creatinine 0.69. ASSESSMENT AND PLAN: 1. Acute on chronic anemia. Most likely it is secondary to gastrointestinal loss. The patient did receive 1 unit of packed red blood cells and his blood work shows iron-deficiency anemia. 2. Acute exacerbation of chronic obstructive pulmonary disease. Continue with levofloxacin, Solu-Medrol and breathing treatments. 3. Hypertension. 4. Gastroesophageal reflux disease. 5. Alcohol abuse. PLAN: The plan is to continue with the above medication regimen. Patient was evaluated by GI Dr. Ardon, who is planning to do EGD and colonoscopy. It was discussed with the patient that he needs to get these procedures done as even in August 2016, he was supposed to be evaluated for this chronic anemia, but never had this procedure done, so will coordinate with Dr. Ardon for possible EGD, colonoscopy for tomorrow morning and the patient will be kept n.p.o. Treatment care plan was discussed in detail with him. Most of the time is spent and counseling the patient, explaining the need to get EGD and colonoscopy.
[2017-01-06 20:38] LABS: Glucose,Whole Blood 300 mg/dL (75-99)
[2017-01-07] MEDS: methylPREDNISolone SOD SUCCI 125 MG/2 ML VIAL IV SCH ×3 (00:13→13:28)
[2017-01-07 07:23] LABS: Glucose,Whole Blood 185 mg/dL (75-99)
[2017-01-07] MEDS: INSULIN LISPRO (humaLOG) 300 UNIT/3 ML VIAL SQ SCH ×2 (08:22→13:28)
[2017-01-07] MEDS: METOPROLOL TARTRATE 12.5 MG TAB PO SCH (08:23)
[2017-01-07] MEDS: SYMBICORT 160-4.5 MCG INHALER INHALATION SCH (08:39)
[2017-01-07] MEDS: IPRATROPIUM-ALBUTEROL 3 ML NEB INHALATION PRN (08:39)
[2017-01-07 10:38] LABS: Anisocytosis Slight; Basophils % (A) 0 %; CH 19.9; CHCM 26.6; Eosinophils % (A) 0 %; HCT 27.4 % (39.0-53.0); HDW 4.19; HGB 7.5 gm/dL (13.0-17.5); Hypochromasia Marked; Luc # (Auto) 0.11; Luc % (Auto) 1; Lymphocytes # (A) 0.8 k/uL (1.0-4.8); Lymphocytes % (A) 7 %; MCH 20.5 pg (25.0-35.0); MCV 75.1 fL (80.0-100.0); Mean Platelet Volume 7.4; Microcytosis Moderate; Monocytes # (A) 0.4 k/uL (0-1.0); Monocytes % (A) 3 %; Neutrophils # (A) 10.9 k/uL (1.3-7.7); Neutrophils % (A) 89 %; Poikilocytosis Moderate; RBC 3.65 m/uL (4.30-5.90); WBC 12.2 k/uL (3.8-10.6); WBC (Perox) 13.63
[2017-01-07 10:41] LABS: MCHC 27.3 g/dL (31.0-37.0)
[2017-01-07 11:24] LABS: Anion Gap 11 mmol/L; Blood Urea Nitrogen 16 mg/dL (9-20); Calcium 9.7 mg/dL (8.4-10.2); Carbon Dioxide 27 mmol/L (22-30); Chloride 103 mmol/L (98-107); Glucose 156 mg/dL (74-99); Non-African American GFR(MDRD) >60 (>60 ml/min/1.73 sqM); Potassium 4.3 mmol/L (3.5-5.1); Sodium 141 mmol/L (137-145)
[2017-01-07] MEDS ORDERED: PROPOFOL 10 MG/ML 20 ML VIAL IV ONE (11:58)
[2017-01-07] MEDS ORDERED: LEVOFLOXACIN 750 MG TAB PO SCH (12:00)
[2017-01-07] MEDS ORDERED: LACTATED RINGERS 1,000 ML IV ONE (12:00)
[2017-01-07 12:24] LABS: Hemoglobin A1C 5.4 % (4.2-6.1)
[2017-01-07 13:00] LABS: Glucose,Whole Blood 154 mg/dL (75-99)
[2017-01-07] MEDS: PANTOPRAZOLE 40 MG TABLET PO SCH (13:28)
--- NOTE | 2017-01-07 13:49 | P.PCN ---
Date of Procedure: 01/07/17 Procedure(s) Performed: Procedure: 1. Esophagogastroduodenoscopy and biopsy. 2. Colonoscopy and polypectomy. Preoperative diagnosis: Anemia and suspected GI bleeding. Postoperative diagnosis: 1. Small sliding hiatal hernia with no obvious esophagitis or complicated reflux disease. 2. Mild antral gastritis. 2. Small benign-appearing duodenal polyp in the descending duodenum. 3. Sigmoid diverticulosis with no evidence of acute diverticulitis or strictures. 4. Distal sigmoid polyp snared but no large polyps, cancer or bleeding. Preparation: GoLYTELY prep. Sedation: Was provided by anesthesia. Brief clinical history: The patient is a 71-year old male with history of COPD was admitted because of left shoulder and hi pains as well as anemia with SOB. The patient was hospitalized in August 2016 with profound anemia and at that time he declined endoscopic workup and wanted to have it done as outpatient through the [facility] which has not been done yet. Denies overt bleeding. Apparently had bowel surgery and prior colonoscopy around 4-5 years ago? Procedure: With the patient on his left lateral decubitus position and after informed consent and adequate sedation, I passed the Olympus-GIF 160 video upper endoscope through the cricopharyngeus down the esophagus. GE junction was around 41 cm from the incisors and there was a small sliding hiatal hernia. The esophagus did not show any obvious esophagitis or complicated reflux disease. The endoscope was then passed into the stomach which was insufflated with air and inspected in detail including the retroflex view in the cardia. There was some mottling and erythema in the antrum but no ulcers or erosions. Pyloric channel did not show any ulcers. Duodenal bulb appeared normal post bulbar area and descending duodenum were inspected and there was a small benign duodenal polyp in the descending duodenum which I biopsied. Because of his anemia, I obtained additional biopsies from the duodenum in addition to biopsies from the antrum and esophagus then the endoscope was withdrawn and I proceeded to do colonoscopy. Perianal area did not show any fissures or fistulas. There were no masses felt on digital rectal examination. The Olympus CFQ 160L video colonoscope was then inserted in the rectum in the usual fashion and advanced to the cecum. There were multiple diverticular orifices scattered in the sigmoid but there was no evidence of acute diverticulitis or strictures. There was a 1.5 cm polyp in the distal sigmoid which I snared and retrieved by suctioning it to the tip of the endoscope but there were no other polyps or tumors or other potential sources of bleeding or any active bleeding at the time of this exam. I retroflexed the endoscope in the rectum before the endoscope was withdrawn. The patient tolerated the procedure well. Plan: The patient was reassured. Will allow diet. Await biopsy results. If he continues to manifest evidence of GI bleeding and anemia, consideration would be made for capsule endoscopy. I anticipate repeating his colonoscopy in 5 years.
[2017-01-07 16:00] VITALS: PULSE 95; RESP 16; TEMP 96.8
[2017-01-07 16:01] VITALS: BP 162/74
--- NOTE | 2017-01-08 22:45 | DS ---
DATE OF ADMISSION: 01/04/2017 DATE OF DISCHARGE: 01/07/2017 HOSPITAL COURSE: Mr. Griffiths is a 71-year-old male with a past medical history of GERD, hypertension, chronic anemia, alcohol abuse. He came into the hospital with the chief complaint of left shoulder and left hip pain, but on checking the patient's labs, his hemoglobin was found to be 6.5. So the patient was admitted for anemia with low hemoglobin levels. The patient received 1 unit of PRBCs and his hemoglobin was stable around 7. Patient did have the same complaint in August of 2016 and was discharged home ( ) workup for chronic anemia with EGD and colonoscopy, but the patient did not get the procedure done. Patient was also having acute exacerbation of COPD and was treated with levofloxacin. Patient was continued on steroids and breathing treatments. Patient showed significant improvement in status ( ) GI Dr. Ardon was consulted. Patient did get endoscopy and colonoscopy today, the postoperative diagnosis of the endoscopy and colonoscopy showing mild antral gastritis and a small, benign-appearing duodenal polyp and sigmoid diverticulosis with no evidence of acute diverticulitis or strictures, and distal sigmoid polyps, snared, but no larger polyps, cancer or bleeding. So the patient was sent back to the floor after having the procedures. Patient was doing okay, but hours later I was informed by the nursing staff that the patient left the hospital AGAINST MEDICAL ADVICE. DISCHARGE DIAGNOSES: 1. Acute on chronic anemia; could be secondary to GI loss. Patient did have an EGD and colonoscopy showing only mild gastritis. 2. Acute exacerbation of chronic obstructive pulmonary disease. 3. Hypertension. 4. Gastroesophageal reflux disease. 5. Alcohol abuse. DISCHARGE MEDICATIONS: Medication ( ) could not be done, as the patient left AGAINST MEDICAL ADVICE.
== END 2017-01-07 15:02 | disposition left against medical advice (07) | DRG 812 ==
LOC: EC 07:37 → 3OBS 09:30 → OBSVTOIN 11:15 → 4MS4W 14:58
PROVIDERS: ADMIT Hospitalist; ATTEND Hospitalist
PROC: 0DB98ZX Excision of Duodenum, Via Natural or Artificial Opening Endoscopic, Diagnostic (ICD-10-PCS; principal; 2017-01-07 07:30)
PROC: 0DBN8ZZ Excision of Sigmoid Colon, Via Natural or Artificial Opening Endoscopic (ICD-10-PCS; 2017-01-07 07:30)
DX: D62 Acute posthemorrhagic anemia (principal); J44.1 Chronic obstructive pulmonary disease with (acute) exacerbation; I10 Essential (primary) hypertension; D50.9 Iron deficiency anemia, unspecified; D12.5 Benign neoplasm of sigmoid colon; E66.9 Obesity, unspecified; F10.10 Alcohol abuse, uncomplicated; J45.909 Unspecified asthma, uncomplicated; K21.9 Gastro-esophageal reflux disease without esophagitis; K29.60 Other gastritis without bleeding; K31.7 Polyp of stomach and duodenum; K44.9 Diaphragmatic hernia without obstruction or gangrene; K57.30 Diverticulosis of large intestine without perforation or abscess without bleeding; M25.512 Pain in left shoulder; M25.552 Pain in left hip; M79.662 Pain in left lower leg; Z68.31 Body mass index [BMI] 31.0-31.9, adult; Z87.891 Personal history of nicotine dependence; Z79.899 Other long term (current) drug therapy; Z82.49 Family history of ischemic heart disease and other diseases of the circulatory system
CPT/HCPCS: 36415; 43239; 45385; 71020; 73502; 80048; 80053; 82607; 82746; 83036; 83540; 83550; 83735; 84484; 85025; 85027; 85610; 85730; 86850; 86900; 86901; 86920; 88305; 88342; 93005; 94640; 94760; 96374; 96375; 99153; 99285

== ENCOUNTER 2017-01-12 08:03 | Emergency (ER) | payer OTHER, MEDICARE ==
[2017-01-12 08:08] VITALS: RESP 18
[2017-01-12] MEDS ORDERED: IPRATROPIUM-ALBUTEROL 3 ML NEB INHALATION STA (08:24)
--- NOTE | 2017-01-12 08:28 | ED ---
General Adult HPI - General Chief complaint: Shortness of Breath Stated complaint: SOB Time Seen by Provider: 01/12/17 08:18 Source: patient, RN notes reviewed Mode of arrival: wheelchair Limitations: no limitations - History of Present Illness Initial comments: Patient is a pleasant [age]-year-old male presenting to the emergency department complaining of difficulty breathing. Symptoms have progressed over the past 5 days. Patient was recently discharged from the hospital similar problems. Patient was anemic at that time. Patient is unclear why. No but he stools or dark stools. Patient does feel short of breath. Minimal cough. No chest pain. Patient does feel like his COPD and asthma are acting up. - Related Data Home Medications Medication Instructions Recorded Confirmed Albuterol Inhaler [Ventolin Hfa 1 - 2 puff INHALATION RT-QID PRN 01/30/16 Inhaler] Albuterol Nebulized [Ventolin 2.5 mg INHALATION RT-Q4H PRN 08/24/16 01/12/17 Nebulized] Budesonide-Formot 160-4.5 Mcg 2 puff INHALATION RT-BID 08/24/16 01/12/17 [Symbicort 160-4.5 Mcg Inhaler] Metoprolol Tartrate [Lopressor] 12.5 mg PO BID 08/24/16 01/12/17 Naproxen 500 mg PO BID PRN 08/24/16 01/12/17 Omeprazole 40 mg PO AC-BRKFST 08/24/16 01/12/17 Ibuprofen [Motrin] 400 mg PO Q6HR PRN 01/04/17 01/12/17 Allergies Allergy/AdvReac Type Severity Reaction Status Date / Time No Known Allergies Allergy Verified 01/12/17 08:08 Review of Systems ROS Statement: Those systems with pertinent positive or pertinent negative responses have been documented in the HPI. ROS Other: All systems not noted in ROS Statement are negative. Constitutional: Denies: fever Eyes: Denies: eye pain ENT: Denies: ear pain Respiratory: Reports: cough, dyspnea Cardiovascular: Reports: edema. Denies: chest pain Endocrine: Reports: fatigue Gastrointestinal: Denies: abdominal pain Genitourinary: Denies: dysuria Musculoskeletal: Denies: back pain Skin: Denies: rash Past Medical History Past Medical History: COPD, GERD/Reflux, Hypertension Additional Past Medical History / Comment(s): maleria, prn home O2 use History of Any Multi-Drug Resistant Organisms: None Reported Past Surgical History: Bowel Resection Additional Past Surgical History / Comment(s): colonoscopy Past Anesthesia/Blood Transfusion Reactions: No Reported Reaction Past Psychological History: No Psychological Hx Reported Smoking Status: Former smoker Past Alcohol Use History: Daily Additional Past Alcohol Use History / Comment(s): pt. states he has cut back on alcohol consumption, pt. reports drinking 8 beers daily Past Drug Use History: None Reported - Past Family History Father History Unknown: Yes Mother Family Medical History: COPD Sister(s) Family Medical History: No Reported History Brother(s) Family Medical History: No Reported History Daughter(s) Family Medical History: Myocardial Infarction ([place]) Son(s) Family Medical History: No Reported History General Exam Limitations: no limitations General appearance: alert, in no apparent distress Head exam: Present: atraumatic Eye exam: Present: normal appearance, PERRL ENT exam: Present: normal oropharynx Neck exam: Present: normal inspection Respiratory exam: Present: decreased breath sounds Cardiovascular Exam: Present: regular rate, normal rhythm GI/Abdominal exam: Present: soft. Absent: tenderness Extremities exam: Present: pedal edema. Absent: calf tenderness Neurological exam: Present: alert Psychiatric exam: Present: normal affect, normal mood Skin exam: Absent: rash Course Vital Signs 01/12/17 01/12/17 01/12/17 08:06 08:28 08:39 Temperature 98 F Pulse Rate 90 85 Pulse Rate [ Bilateral Dorsalis Pedis] Respiratory 18 18 18 Rate Blood Pressure 147/67 147/67 O2 Sat by Pulse 96 97 Oximetry 01/12/17 01/12/17 01/12/17 08:57 09:10 09:18 Temperature Pulse Rate 76 82 Pulse Rate [ 84 Bilateral Dorsalis Pedis] Respiratory Rate Blood Pressure O2 Sat by Pulse Oximetry EKG Findings - EKG Comments: EKG Findings:: Normal sinus rhythm at 85. NJ 148. QRS 86. QT 376. QTc 447. Normal axis. Normal QRS. No acute ST change. Medical Decision Making - Medical Decision Making Patient reexamined and symptom-free. Lung sounds remain somewhat diminished. Patient admits to recently being on steroids. Patient does not want to wait for urinalysis/urine culture. Patient requests discharge home. Patient is agreeable to close follow-up with his primary care physician. - Lab Data Result diagrams: 01/12/17 08:33 01/12/17 08:33 Lab Results 01/12/17 01/12/17 01/12/17 Range/Units 08:33 08:33 08:33 WBC 20.3 H (3.8-10.6) k/uL RBC 3.79 L (4.30-5.90) m/uL Hgb 7.9 L (13.0-17.5) gm/dL Hct 28.3 L (39.0-53.0) % MCV 74.6 L (80.0-100.0) fL MCH 20.8 L (25.0-35.0) pg MCHC 27.9 L (31.0-37.0) g/dL RDW 20.3 H (11.5-15.5) % Plt Count 204 (150-450) k/uL Neutrophils % (Manual) 62.5 % Lymphocytes % (Manual) 11.0 % Monocytes % (Manual) 9.5 % Eosinophils % (Manual) 16.5 % Myelocytes % 0.5 % Neutrophils # (Manual) 12.7 H (1.3-7.7) k/uL Lymphocytes # (Manual) 2.2 (1.0-4.8) k/uL Monocytes # (Manual) 1.9 H (0-1.0) k/uL Eosinophils # (Manual) 3.3 H (0-0.7) k/uL Nucleated RBCs 0 (0-0) /100 WBC Manual Slide Review Performed Polychromasia Present Hypochromasia Marked Poikilocytosis Moderate Anisocytosis Moderate Microcytosis Moderate PT (9.0-12.0) sec INR (<1.1) APTT (22.0-30.0) sec Sodium 142 (137-145) mmol/L Potassium 4.1 (3.5-5.1) mmol/L Chloride 106 (98-107) mmol/L Carbon Dioxide 25 (22-30) mmol/L Anion Gap 11 mmol/L BUN 7 L (9-20) mg/dL Creatinine 0.69 (0.66-1.25) mg/dL Est GFR (MDRD) Af Amer >60 (>60 ml/min/1.73 sqM) Est GFR (MDRD) Non-Af >60 (>60 ml/min/1.73 sqM) Glucose 130 H (74-99) mg/dL Calcium 8.8 (8.4-10.2) mg/dL Total Bilirubin 1.3 (0.2-1.3) mg/dL AST 26 (17-59) U/L ALT 45 (21-72) U/L Alkaline Phosphatase 123 (38-126) U/L Total Creatine Kinase 22 L (55-170) U/L CK-MB (CK-2) 1.7 (0.0-2.4) ng/mL CK-MB (CK-2) Rel Index 7.7 Troponin I <0.012 (0.000-0.034) ng/mL NT-Pro-B Natriuret Pep pg/mL Total Protein 6.4 (6.3-8.2) g/dL Albumin 3.3 L (3.5-5.0) g/dL 01/12/17 01/12/17 Range/Units 08:33 08:33 WBC (3.8-10.6) k/uL RBC (4.30-5.90) m/uL Hgb (13.0-17.5) gm/dL Hct (39.0-53.0) % MCV (80.0-100.0) fL MCH (25.0-35.0) pg MCHC (31.0-37.0) g/dL RDW (11.5-15.5) % Plt Count (150-450) k/uL Neutrophils % (Manual) % Lymphocytes % (Manual) % Monocytes % (Manual) % Eosinophils % (Manual) % Myelocytes % % Neutrophils # (Manual) (1.3-7.7) k/uL Lymphocytes # (Manual) (1.0-4.8) k/uL Monocytes # (Manual) (0-1.0) k/uL Eosinophils # (Manual) (0-0.7) k/uL Nucleated RBCs (0-0) /100 WBC Manual Slide Review Polychromasia Hypochromasia Poikilocytosis Anisocytosis Microcytosis PT 11.9 (9.0-12.0) sec INR 1.2 (<1.1) APTT 23.8 (22.0-30.0) sec Sodium (137-145) mmol/L Potassium (3.5-5.1) mmol/L Chloride (98-107) mmol/L Carbon Dioxide (22-30) mmol/L Anion Gap mmol/L BUN (9-20) mg/dL Creatinine (0.66-1.25) mg/dL Est GFR (MDRD) Af Amer (>60 ml/min/1.73 sqM) Est GFR (MDRD) Non-Af (>60 ml/min/1.73 sqM) Glucose (74-99) mg/dL Calcium (8.4-10.2) mg/dL Total Bilirubin (0.2-1.3) mg/dL AST (17-59) U/L ALT (21-72) U/L Alkaline Phosphatase (38-126) U/L Total Creatine Kinase (55-170) U/L CK-MB (CK-2) (0.0-2.4) ng/mL CK-MB (CK-2) Rel Index Troponin I (0.000-0.034) ng/mL NT-Pro-B Natriuret Pep 459 pg/mL Total Protein (6.3-8.2) g/dL Albumin (3.5-5.0) g/dL - Radiology Data Radiology results: image reviewed (Chest x-ray shows atelectasis without focal infiltrate.) Disposition Clinical Impression: Acute exacerbation of chronic obstructive pulmonary disease (COPD), Pedal edema Disposition: HOME SELF-CARE Condition: Stable Instructions: COPD (Chronic Obstructive Pulmonary Disease) (ED), Leg Edema (ED) Additional Instructions: Please follow-up with your primary care physician in the beginning of the week. Return for difficulty in breathing, chest pain, increased swelling, fevers, worsening symptoms or other concerns. Please have your doctor review ER visit report. Referrals: Curt Tyson DO [Primary Care Provider] - 1-2 days
[2017-01-12 08:45] LABS: Anisocytosis Moderate; CH 19.9; CHCM 26.8; HCT 28.3 % (39.0-53.0); HDW 4.14; HGB 7.9 gm/dL (13.0-17.5); Hypochromasia Marked; MCH 20.8 pg (25.0-35.0); MCV 74.6 fL (80.0-100.0); Mean Platelet Volume 9.2; Microcytosis Moderate; Poikilocytosis Moderate; RBC 3.79 m/uL (4.30-5.90); RDW 20.3 % (11.5-15.5); WBC 20.3 k/uL (3.8-10.6)
[2017-01-12 08:47] LABS: MCHC 27.9 g/dL (31.0-37.0)
[2017-01-12 08:53] LABS: INR 1.2 (<1.1); Partial Thromboplastin Time 23.8 sec (22.0-30.0); Prothrombin Time 11.9 sec (9.0-12.0)
--- NOTE | 2017-01-12 08:55 | XR ---
EXAMINATION TYPE: XR chest 2V DATE OF EXAM: 01/12/2017 8:48 AM COMPARISON: Chest radiograph dated 01/04/2017 HISTORY: Shortness of breath, cough, asthma, history of COPD. TECHNIQUE: Frontal and lateral views of the chest are obtained. FINDINGS: There is redemonstration of pulmonary hyperinflation and tapering of the pulmonary vascula ture peripherally compatible with underlying COPD. There is no focal air space opacity, pleural effus ion, or pneumothorax seen. Linear bibasilar atelectasis is noted The cardiac silhouette size is with in normal limits. There is generalized osteopenia and degenerative changes of thoracic spine with mil d height loss of few contiguous thoracic vertebrae, unchanged from the prior. IMPRESSION: Bibasilar subsegmental linear atelectasis with no focal consolidation.
[2017-01-12 08:58] LABS: Chloride 106 mmol/L (98-107); Glucose 130 mg/dL (74-99); Potassium 4.1 mmol/L (3.5-5.1); Total Protein 6.4 g/dL (6.3-8.2)
[2017-01-12 08:59] LABS: ALT 45 U/L (21-72); AST 26 U/L (17-59); Alkaline Phosphatase 123 U/L (38-126); Anion Gap 11 mmol/L; Blood Urea Nitrogen 7 mg/dL (9-20); Calcium 8.8 mg/dL (8.4-10.2); Carbon Dioxide 25 mmol/L (22-30); Non-African American GFR(MDRD) >60 (>60 ml/min/1.73 sqM); Sodium 142 mmol/L (137-145); Total Bilirubin 1.3 mg/dL (0.2-1.3)
[2017-01-12 09:00] LABS: Add Differential Manual Differential
[2017-01-12 09:03] LABS: Manual Review Performed; Myelocytes % 0.5 %; Nucleated Red Blood Cells 0 /100 WBC (0-0); Polychromasia Present; Total Cells Counted 200
[2017-01-12 09:04] LABS: Creatine Kinase 22 U/L (55-170)
[2017-01-12 09:17] LABS: Creatine Kinase MB 1.7 ng/mL (0.0-2.4); Troponin I <0.012 ng/mL (0.000-0.034)
[2017-01-12 10:13] VITALS: BP 142/66; PULSE 90; TEMP 97.7
[2017-01-12 10:21] LABS: Appearance,Urine Clear (Clear); Bilirubin,Urine Negative (Negative); Glucose,Urine (UA) Negative (Negative); Ketones,Urine Negative (Negative); Leukocyte Esterase,Urine Negative (Negative); Nitrite,Urine Negative (Negative); PH, Urine 6.5 (5.0-8.0); Protein,Urine Negative (Negative); Specific Gravity,Urine 1.018 (1.001-1.035); UA Billing (MACRO vs. MICRO) CHEM
== END 2017-01-12 10:13 | disposition home or self-care (01) ==
LOC: EC 08:03
DX: J44.1 Chronic obstructive pulmonary disease with (acute) exacerbation (principal); R60.0 Localized edema; I10 Essential (primary) hypertension; Z79.899 Other long term (current) drug therapy; Z79.51 Long term (current) use of inhaled steroids; Z99.81 Dependence on supplemental oxygen; Z87.891 Personal history of nicotine dependence
CPT/HCPCS: 36415; 71020; 80053; 81003; 82550; 82553; 83880; 84484; 85025; 85610; 85730; 87086; 93005; 94640; 99285

== ENCOUNTER → 2017-02-19 | Outpatient (CLI) | payer OTHER ==
[2017-02-19 10:28] LABS: Blood Urea Nitrogen 6 mg/dL (9-20); Non-African American GFR(MDRD) >60 (>60 ml/min/1.73 sqM)
--- NOTE | 2017-02-19 12:57 | CT ---
EXAMINATION TYPE: CT soft tissue neck wo/w con DATE OF EXAM: 02/19/2017 10:54 AM HISTORY: Areas of swelling bilaterally marked by BB's COMPARISON: NONE CT DLP: 1054.4 mGycm. Automated Exposure Control for Dose Reduction was Utilized. TECHNIQUE: CT scan of the neck is performed without and with IV Contrast, patient injected with 100 mL of Omnipaque 300, axial images are obtained, coronal and sagittal reformatted images are reviewed. FINDINGS: A metallic BB is placed at level of palpable abnormality or clinical concern left supraclavicular reg ion on axial image 54. There are multiple prominent round soft tissue masses or lymph nodes at this l evel. There is large conglomerate soft tissue mass or adenopathy seen superior to this left submandib ular level deep to the SCM causing mass effect on internal jugular vein and common carotid artery and bulb which are medially displaced, this confluent mass measures roughly 4.5 x 3.0 cm on axial image 55. There are additional enlarged submandibular lymph nodes anterior to this with reference lymph nod e measuring 2.0 x 1.9 cm on axial image 50. Abnormal masses or adenopathy extends inferiorly, for ref erence 2.1 x 1.6 cm supraclavicular lymph node is seen at level of left thyroid lobe on axial image 3 3. Abnormal right sided lymph nodes are present though less prominent and numerous, for reference the re is 1.9 x 1.3 cm lymph node just lateral to the internal jugular vein at level of the hyoid bone on axial image 50. There is 1.3 x 1.1 cm fat-containing lesion centrally in the left parotid gland. Etiology uncertain f avor benign. Submandibular glands are symmetric and somewhat small in size. Airway is grossly patent. No distinct mucosal lesions seen. Thyroid gland is unremarkable. There is m ild to moderate emphysematous change in visualized lung apices. Subcentimeter lymph nodes in the supe rior mediastinum and visualized thoracic middle mediastinum are noted. There is moderate atherosclerotic change of aorta and branch vessels. There is more severe calcified plaque at left carotid bulb extending into proximal internal carotid artery which hemodynamically sig nificant stenosis cannot be excluded. Moderate to severe calcified plaque is seen at right carotid bu lb without stenosis definitively seen. Follow-up advised. There is moderate multilevel spurring and disc space narrowing throughout the cervical spine from C4- C5 through C6-C7 level. IMPRESSION: There is abnormal adenopathy, left greater than right involving zones 1B, 2 through 4, 5, and 7. Neoplasm such as lymphoma needs to BE considered. Hematology oncology consultation for furthe r workup and PET/CT advised to further evaluate to assess areas for possible sampling. 2. Severe focal plaque bilateral carotid bulbs, left more prominent than right, hemodynamically signi ficant stenosis proximal left internal carotid artery suspected, carotid ultrasound follow-up advised .
== END | disposition home or self-care (01) ==
LOC: RADCTMAIN 09:49
PROVIDERS: ATTEND Family Medicine
DX: I65.23 Occlusion and stenosis of bilateral carotid arteries (principal); R59.0 Localized enlarged lymph nodes
CPT/HCPCS: 82565; 84520; 70492; 36415; Q9967

== ENCOUNTER → 2017-03-15 | Outpatient (CLI) | payer OTHER ==
--- NOTE | 2017-03-15 19:38 | PE ---
Nuclear medicine PET/CT HISTORY: Lymphoma left neck Patient received 14.7 mCi F-18 FDG intravenously and delayed scanning was performed from the skull ba se through the mid thighs. Localization and attenuation correction CT scan was performed and exam is correlated to soft tissue neck CT dated January Neck and chest: There are extensive soft tissue masses within the bilateral neck of varying sizes whi ch show associated hypermetabolic uptake left greater than right especially along the anterior cervic al chains but also posteriorly on the left. The largest soft tissue mass is present deep to the archuleta ocleidomastoid muscle on the left and may represent confluent adenopathy, SUV approximately 16-17 deirdre suring approximately 6 cm in greatest dimension. The level of the posterior molar on the left within the mandible there is a erosive appearance which may be due to decay, there is associated hypermetabo lic uptake at this level. Foci of hypermetabolic uptake are present anteriorly to the level of the th oracic inlet. Left axillary adenopathy also shows associated hypermetabolic uptake, the largest node measuring approximately 2 cm in short axis. Abdomen pelvis: Colonic interposition is present anterior to the liver, there is some associated nodu larity at this level with associated hypermetabolic uptake, SUV is approximately 10-11. The spleen is enlarged. No retroperitoneal adenopathy is evident. Urinary bladder shows a thickened wall but is contracted. Prostate shows calcifications. No pelvic or inguinal adenopathy. Degenerative disc changes are present in the visualized spine. IMPRESSION: Findings compatible with patient's history of lymphoma as described
== END | disposition home or self-care (01) ==
LOC: RADPETMAIN 07:11
PROVIDERS: ATTEND Family Medicine
DX: C81.41 Lymphocyte-rich Hodgkin lymphoma, lymph nodes of head, face, and neck (principal)
CPT/HCPCS: 78815; A9552

== ENCOUNTER 2017-03-25 11:13 | Inpatient (IN) | payer OTHER, MEDICARE ==
--- NOTE | 2017-03-25 12:28 | ED ---
General Adult HPI - General Chief complaint: Dental/Oral Stated complaint: spitting blood, neck swelling Time Seen by Provider: 03/25/17 12:10 Source: patient, RN notes reviewed Mode of arrival: ambulatory Limitations: no limitations - History of Present Illness Initial comments: 71-year-old male presents emergency Department chief complaint left facial, neck and all swelling. Patient states that she's been on for 2 months progressively getting worse. Patient states he [facility] who ordered a CAT scan and PET scan. Patient states he does not know the results he states that he was told the results were loss. Patient states that he was given a follow-up with an ENT doctor no nobody except his insurance. Patient states that he is feeling worse and worse. Patient states he has a lesion inside of his mouth. Patient states that he spitting up blood from this. - Related Data Home Medications Medication Instructions Recorded Confirmed Albuterol Inhaler [Ventolin Hfa 1 - 2 puff INHALATION RT-QID PRN 01/30/16 Inhaler] Albuterol Nebulized [Ventolin 2.5 mg INHALATION RT-Q4H PRN 08/24/16 03/25/17 Nebulized] Budesonide-Formot 160-4.5 Mcg 2 puff INHALATION RT-BID 08/24/16 03/25/17 [Symbicort 160-4.5 Mcg Inhaler] Naproxen 500 mg PO BID PRN 08/24/16 03/25/17 Omeprazole 40 mg PO AC-BRKFST 08/24/16 03/25/17 Ibuprofen [Motrin] 400 mg PO Q6HR PRN 01/04/17 03/25/17 Ferrous Sulfate [Feosol] 325 mg PO DAILY 03/25/17 03/25/17 Metoprolol Tartrate [Lopressor] 25 mg PO BID 03/25/17 03/25/17 Allergies Allergy/AdvReac Type Severity Reaction Status Date / Time No Known Allergies Allergy Verified 03/25/17 12:08 Review of Systems ROS Statement: Those systems with pertinent positive or pertinent negative responses have been documented in the HPI. ROS Other: All systems not noted in ROS Statement are negative. Past Medical History Past Medical History: COPD, GERD/Reflux, Hypertension Additional Past Medical History / Comment(s): maleria prn home O2 use History of Any Multi-Drug Resistant Organisms: None Reported Past Surgical History: Bowel Resection Additional Past Surgical History / Comment(s): colonoscopy Past Anesthesia/Blood Transfusion Reactions: No Reported Reaction Past Psychological History: No Psychological Hx Reported Smoking Status: Former smoker Past Alcohol Use History: Daily Additional Past Alcohol Use History / Comment(s): pt. states he has cut back on alcohol consumption, pt. reports drinking 8 beers daily Past Drug Use History: None Reported - Past Family History Father History Unknown: Yes Mother Family Medical History: COPD Sister(s) Family Medical History: No Reported History Brother(s) Family Medical History: No Reported History Daughter(s) Family Medical History: Myocardial Infarction ([place]) Son(s) Family Medical History: No Reported History General Exam Limitations: no limitations General appearance: alert, in no apparent distress Head exam: Present: atraumatic, normocephalic, normal inspection Eye exam: Present: normal appearance, PERRL, EOMI. Absent: scleral icterus, conjunctival injection, periorbital swelling ENT exam: Present: mucous membranes moist, TM's normal bilaterally, normal external ear exam. Absent: normal oropharynx (Area of erosion and hypertrophy noted in the left lower jaw line.) Neck exam: Present: full ROM, lymphadenopathy (Extensive lymphadenopathy left side of the neck). Absent: normal inspection (Large amount of swelling left sided neck, anterior aspect), tenderness, meningismus Respiratory exam: Present: wheezes. Absent: normal lung sounds bilaterally, respiratory distress, rales, rhonchi, stridor Cardiovascular Exam: Present: regular rate, normal rhythm, normal heart sounds. Absent: systolic murmur, diastolic murmur, rubs, gallop, clicks Course Vital Signs 03/25/17 11:45 Temperature 97.4 F L Pulse Rate 80 Respiratory 18 Rate Blood Pressure 135/62 O2 Sat by Pulse 92 L Oximetry Medical Decision Making - Medical Decision Making Medical records are reviewed. Patient has had PET scan and CT. There is large amount of lymphadenopathy and she concern lymphoma. Disposition Clinical Impression: Mouth lesion, Lymphoma, Cervical lymphadenopathy Disposition: ADMITTED IP TO THIS HOSP Condition: Stable
[2017-03-25] MEDS ORDERED: ONDANSETRON 4 MG/2 ML VIAL IVP PRN (12:36)
[2017-03-25] MEDS ORDERED: NALOXONE 0.4 MG/ML 1 ML VIAL IV PRN (12:36)
[2017-03-25] MEDS ORDERED: ACETAMINOPHEN TAB 325 MG TAB PO PRN (12:36)
[2017-03-25 13:16] LABS: INR 1.2 (<1.1); Partial Thromboplastin Time 22.8 sec (22.0-30.0); Prothrombin Time 11.7 sec (9.0-12.0)
[2017-03-25 13:22] LABS: ALT 21 U/L (21-72); AST 93 U/L (17-59); Alkaline Phosphatase 152 U/L (38-126); Anion Gap 7 mmol/L; Blood Urea Nitrogen 7 mg/dL (9-20); Calcium 11.7 mg/dL (8.4-10.2); Carbon Dioxide 29 mmol/L (22-30); Chloride 104 mmol/L (98-107); Glucose 101 mg/dL (74-99); Non-African American GFR(MDRD) >60 (>60 ml/min/1.73 sqM); Sodium 140 mmol/L (137-145); Total Bilirubin 1.2 mg/dL (0.2-1.3); Total Protein 8.2 g/dL (6.3-8.2)
[2017-03-25 13:25] LABS: Potassium 4.7 mmol/L (3.5-5.1)
[2017-03-25 13:49] LABS: Anisocytosis Slight; Basophils # (A) 0.2 k/uL (0-0.2); Basophils % (A) 1 %; CHCM 25.7; Eosinophils # (A) 1.7 k/uL (0-0.7); Eosinophils % (A) 12 %; HCT 32.9 % (39.0-53.0); HDW 3.29; HGB 8.8 gm/dL (13.0-17.5); Hypochromasia Marked; Luc # (Auto) 0.26; Luc % (Auto) 2; Lymphocytes # (A) 1.4 k/uL (1.0-4.8); Lymphocytes % (A) 10 %; MCH 20.9 pg (25.0-35.0); MCHC 26.7 g/dL (31.0-37.0); MCV 78.1 fL (80.0-100.0); Mean Platelet Volume 8.8; Microcytosis Slight; Monocytes # (A) 1.1 k/uL (0-1.0); Monocytes % (A) 8 %; Neutrophils # (A) 9.6 k/uL (1.3-7.7); Neutrophils % (A) 68 %; RBC 4.21 m/uL (4.30-5.90); RDW 18.8 % (11.5-15.5); WBC 14.2 k/uL (3.8-10.6); WBC (Perox) 14.16
[2017-03-25 14:23] VITALS: BMI 30.4
[2017-03-25] MEDS ORDERED: LORazepam 2 MG/ML SYRINGE IV PRN ×2 (15:02)
[2017-03-25] MEDS ORDERED: cloNIDine HCL 0.1 MG TAB PO PRN (15:09)
[2017-03-25] MEDS ORDERED: ALPRAZolam 0.25 MG TAB PO PRN (15:09)
[2017-03-25] MEDS ORDERED: HYDROmorphone 1 MG/ML 1 ML SYRINGE IVP PRN (15:09)
[2017-03-25] MEDS ORDERED: TEMAZEPAM 15 MG CAP PO PRN (15:09)
[2017-03-25] MEDS ORDERED: IBUPROFEN 400 MG TAB PO PRN (15:12)
[2017-03-25] MEDS: ALBUTEROL NEBULIZED 2.5 MG/3 ML INHALATION PRN (15:30)
[2017-03-25] MEDS: SODIUM CHLORIDE 0.9% 1,000 ML IV SCH (16:30)
[2017-03-25] MEDS: THIAMINE 100 MG/ML 2 ML VIAL IM STA ×2 (16:31→16:32)
[2017-03-25] MEDS: AMPICILLIN-SULBACTAM 3 GM in SODIUM CHLORIDE 0.9% 100 ML IVPB SCH (16:31)
--- NOTE | 2017-03-25 18:31 | P.GSCN ---
History of Present Illness Consult date: 03/25/17 Reason for Consult: Lymphadenopathy History of present illness: Patient with complaints of progressive left neck swelling. He had a left lower molar that he himself removed about 3 weeks ago. He still is having some pain in the left mandibular region. [facility] He [facility] a CT and PET scan performed which showed generalized adenopathy involving the left neck and also the left axilla. He was admitted for further evaluation at this time. Denies dysphagia. No fevers. Only mild discomforts. Some weakness overall. Review of Systems The patient denies any acute changes in his vision or hearing, no dysphagia or odynophagia, no chest pain or shortness of breath, no dysuria or hematuria, no headache, no runny nose, no rectal bleeding or melena Past Medical History Past Medical History: COPD, GERD/Reflux, Hypertension Additional Past Medical History / Comment(s): maleria, nebulizer at home. History of Any Multi-Drug Resistant Organisms: None Reported Past Surgical History: Bowel Resection Additional Past Surgical History / Comment(s): colonoscopy Past Anesthesia/Blood Transfusion Reactions: No Reported Reaction Past Psychological History: No Psychological Hx Reported Smoking Status: Former smoker Past Alcohol Use History: Daily Additional Past Alcohol Use History / Comment(s): 24 beers daily and occasional vodka and orange juice. Past Drug Use History: None Reported - Past Family History Father History Unknown: Yes Mother Family Medical History: COPD Sister(s) Family Medical History: No Reported History Brother(s) Family Medical History: No Reported History Daughter(s) Family Medical History: Myocardial Infarction ([place]) Son(s) Family Medical History: No Reported History Medications and Allergies Home Medications Medication Instructions Recorded Confirmed Type Albuterol Inhaler [Ventolin Hfa 1 - 2 puff INHALATION RT-QID PRN 01/30/16 History Inhaler] Albuterol Nebulized [Ventolin 2.5 mg INHALATION RT-Q4H PRN 08/24/16 03/25/17 History Nebulized] Budesonide-Formot 160-4.5 Mcg 2 puff INHALATION RT-BID 08/24/16 03/25/17 History [Symbicort 160-4.5 Mcg Inhaler] Naproxen 500 mg PO BID PRN 08/24/16 03/25/17 History Omeprazole 40 mg PO AC-BRKFST 08/24/16 03/25/17 History Ibuprofen [Motrin] 400 mg PO Q6HR PRN 01/04/17 03/25/17 History Ferrous Sulfate [Feosol] 325 mg PO DAILY 03/25/17 03/25/17 History Metoprolol Tartrate [Lopressor] 25 mg PO BID 03/25/17 03/25/17 History Allergies Allergy/AdvReac Type Severity Reaction Status Date / Time No Known Allergies Allergy Verified 03/25/17 12:08 Surgical - Exam Vital Signs Temp Pulse Resp BP Pulse Ox 97.4 F L 80 18 135/62 92 L 03/25/17 11:45 03/25/17 11:45 03/25/17 11:45 03/25/17 11:45 03/25/17 11:45 Physical exam: General: Well-developed, well-nourished HEENT: Normocephalic, sclerae nonicteric, ulceration of the left molar region, adenopathy present in the left cervical, left supraclavicular regions Abdomen: Nontender, nondistended Extremities: No edema, left axillary adenopathy noted Neuro: Alert and oriented Results - Labs 03/25/17 12:44 03/25/17 12:44 Assessment and Plan (1) Cervical lymphadenopathy Narrative/Plan: Clinical scenario discussed with the patient. Would recommend ENT evaluation of the oral pharyngeal process. If it is felt that a biopsy of that region as necessary then ENT could certainly biopsy both the oral pharyngeal process and the lymph node in the left cervical region. Alternatively I could proceed with lymph node biopsy of either the left neck or left axilla. Status: Acute
--- NOTE | 2017-03-25 18:37 | HP ---
DATE OF ADMISSION: 03/25/2017 CHIEF COMPLAINT: Pain and swelling of the left side of the face as well as some bleeding from the mouth. HISTORY OF PRESENT ILLNESS: This 71-year-old gentleman with a past medical history of COPD, history of GERD, hypertension, history of bowel resection, history of nicotine dependence, being followed by Dr. Tyson in the outpatient setting, [facility], patient had a soft tissue CT scan of the neck as well as a PET scan. The CT scan of the neck showed abnormal adenopathy, left greater than the right, involving zone 1B, 2, 3, 4, 5, 7. Lymphoma was a consideration. Some hemodynamically significant stenosis in the proximal left internal carotid was also suspected. The patient also had a PET scan done. The PET scan showed extensive soft tissue masses with left mandible with erosive appearance as well as hypermetabolic uptake, suggestive of lymphoma. The patient is being closely monitored. There is no history of any fever, rigor, or chills. No history of any headache, loss of consciousness, seizures. PAST MEDICAL HISTORY: 1. History of COPD. 2. GERD. 3. Hypertension. 4. History of alcohol intake. Medications prior to admission include: 1. Omeprazole 40 mg daily. 2. Iron sulfate 325 mg daily. 3. Naprosyn 500 mg b.i.d. p.r.n. 4. Lopressor 25 mg p.o. b.i.d. 5. Motrin 400 mg q.6 p.r.n. 6. Symbicort 160/4.5 two puffs b.i.d. 7. Ventolin 2.5 q.4 p.r.n. 8. Ventolin HFA 1 to 2 puffs q.i.d. p.r.n. ALLERGIES: NONE. FAMILY HISTORY: History of COPD in the family. SOCIAL HISTORY: Previous history of smoking. Alcohol: up to 24 drinks per day. REVIEW OF SYSTEMS: ENT: As mentioned earlier. CARDIOVASCULAR SYSTEM: No angina, palpitations. RESPIRATORY SYSTEM: As mentioned earlier. GI: No nausea. : No dysuria. NERVOUS SYSTEM: No numbness or weakness. ALLERGY/IMMUNOLOGY: No asthma or hayfever. MUSCULOSKELETAL: As mentioned earlier. HEMATOLOGY/ONCOLOGY: As mentioned earlier. ENDOCRINE: No history of diabetes, hypothyroidism. CONSTITUTIONAL: As mentioned earlier. DERMATOLOGY: Negative. RHEUMATOLOGY: Negative. PSYCHIATRY: As mentioned earlier. PHYSICAL EXAMINATION: Patient is alert and oriented x3. Pulse 88, blood pressure 162/79, respiration 16, temperature 98 degrees, pulse ox 98% on room air. HEENT: Conjunctivae normal. NECK: No jugular venous distention. Significant lymph node enlargement and tender masses, soft to hard, especially in the left supraclavicular, left submandibular area present. Fungating mass also present in the left lower jaw present. CARDIOVASCULAR SYSTEM: S1, S2 muffled. No S3. No S4. RESPIRATORY SYSTEM: Breath sounds diminished at the bases. A few scattered rhonchi. No crackles. ABDOMEN: Soft, non-tender. No mass palpable. LEGS: No edema. No swelling. NERVOUS SYSTEM: Higher functions as mentioned earlier. Moves all 4 limbs. No focal motor or sensory deficit. LYMPHATICS: No lymph node palpable in neck, axillae or groin. SKIN: No ulcer, rash, bleeding. LABS: WBC 14.2, hemoglobin 8.8. Calcium is 11.7. ASSESSMENT: 1. Possible malignant lesion of the mouth and neck; possible carcinoma or possible lymphoma. 2. Possible gingivitis with systemic inflammatory response syndrome. 3. Increased white count. 4. Anemia, microcytic, possibly secondary to malignancy. 5. Abnormal PET scan. 6. Hypercalcemia possibly secondary to malignancy. 7. Increased AST. 8. Increased alkaline phosphatase. 9. History of ethanol. 10. Chronic obstructive pulmonary disease. 11. Gastroesophageal reflux disease. 12. Hypertension. 13. History of bowel resection. 14. Remote history of nicotine dependence. 15. Possible chronic obstructive pulmonary disease. 16. FULL CODE. RECOMMENDATIONS AND DISCUSSION: In this 71-year-old gentleman who presented with multiple complex medical issues, we will monitor the patient closely, continue the current medications, continue with symptomatic treatment. Will initiate broad-spectrum IV antibiotics. I would also recommend hematology/oncology consultation. Repeat labs. Surgical /ENT consultation for possible biopsy if okay with Dr. Mitchell and Dr. Lares. Otherwise, prognosis is guarded. DVT prophylaxis. Further recommendations to follow. A copy of this dictation is being forwarded to Dr. Tyson, who is the primary physician. Overall prognosis extremely guarded because of multiple complex medical issues, as listed. Discussed with the patient at length. Will recommend alcohol cessation and CIVA protocol.
[2017-03-25] MEDS: SYMBICORT 160-4.5 MCG INHALER INHALATION SCH ×2 (19:44→20:02)
[2017-03-25] MEDS: ALBUTEROL NEBULIZED 2.5 MG/3 ML INHALATION SCH (19:44)
[2017-03-25] MEDS: HEPARIN SODIUM,PORCINE 5,000 UNIT/ML 1 ML VIAL SQ SCH (21:15)
[2017-03-25] MEDS: METOPROLOL TARTRATE 25 MG TAB PO SCH (21:15)
[2017-03-26] MEDS: AMPICILLIN-SULBACTAM 3 GM in SODIUM CHLORIDE 0.9% 100 ML IVPB SCH ×5 (00:04→23:26)
[2017-03-26] MEDS: ALBUTEROL NEBULIZED 2.5 MG/3 ML INHALATION PRN (01:07)
[2017-03-26 06:09] LABS: Appearance,Urine Clear (Clear); Bilirubin,Urine Negative (Negative); Glucose,Urine (UA) Negative (Negative); Ketones,Urine Negative (Negative); Leukocyte Esterase,Urine Negative (Negative); Nitrite,Urine Negative (Negative); PH, Urine 6.5 (5.0-8.0); Protein,Urine Negative (Negative); Specific Gravity,Urine 1.005 (1.001-1.035); UA Billing (MACRO vs. MICRO) CHEM; Urobilinogen,Urine <2.0 mg/dL (<2.0)
[2017-03-26] MEDS: PANTOPRAZOLE 40 MG TABLET PO SCH (07:41)
[2017-03-26] MEDS: METOPROLOL TARTRATE 25 MG TAB PO SCH ×2 (07:41→21:16)
[2017-03-26] MEDS: ALBUTEROL NEBULIZED 2.5 MG/3 ML INHALATION SCH ×3 (07:48→20:04)
[2017-03-26] MEDS: SYMBICORT 160-4.5 MCG INHALER INHALATION SCH ×2 (07:48→20:04)
[2017-03-26] MEDS: LORazepam 2 MG/ML SYRINGE IV PRN ×2 (07:49→16:27)
--- NOTE | 2017-03-26 10:00 | P.PN ---
Subjective Principal diagnosis: Lymphadenopathy Patient without new complaints. Denies shortness of breath. Mild left-sided mouth pain. Objective - Vital Signs Vital signs: Vital Signs Temp 96.8 F L 03/26/17 07:00 Pulse 88 03/26/17 08:00 Resp 18 03/26/17 07:00 BP 144/76 03/26/17 07:00 Pulse Ox 96 03/26/17 07:49 Intake & Output 03/25/17 03/26/17 03/26/17 18:59 06:59 18:59 Intake Total 550 Balance 550 Weight 93.44 kg Intake: Oral 550 Other: # Voids 3 3 - Exam Left cervical and supra clavicular adenopathy unchanged - Labs CBC & Chem 7: 03/25/17 12:44 03/25/17 12:44 Assessment and Plan (1) Cervical lymphadenopathy Narrative/Plan: Await oncology evaluation. Consider ENT evaluation. Status: Acute
[2017-03-26] MEDS: FOLIC ACID 1 MG TAB PO SCH (13:22)
[2017-03-26] MEDS: HEPARIN SODIUM,PORCINE 5,000 UNIT/ML 1 ML VIAL SQ SCH ×2 (13:22→21:16)
[2017-03-26] MEDS: THIAMINE 100 MG TAB PO SCH ×2 (13:22→15:26)
[2017-03-26] MEDS: MULTIVITAMINS, THERA 1 EACH TAB PO SCH (13:22)
--- NOTE | 2017-03-26 15:19 | XR ---
EXAMINATION TYPE: XR panorex DATE OF EXAM: 03/26/2017 3:12 PM COMPARISON: NONE HISTORY: Mouth sores possible mass TECHNIQUE: Panorex view mandible FINDINGS: Temporomandibular joints appear normal. There is poor dentition. Lytic areas not identified . No obvious mass is identified. IMPRESSION: 1. Poor dentition position. No obvious mass is identified.
[2017-03-26] MEDS: SODIUM CHLORIDE 0.9% 1,000 ML IV SCH ×4 (15:26→23:28)
--- NOTE | 2017-03-26 15:42 | PN ---
Patient is admitted for left-sided neck swelling, high suspicion for carcinoma or lymphoma and patient pulled his teeth out because of which patient started bleeding and patient probably has an abscess on the left upper and lower molar and premolar area because of which we will get consultation from ( ). Patient is appropriately on Unasyn and the patient did have leukocytosis. May be related to his dental abscess. We will get maxillofacial surgery to evaluate for his gingivitis and possible dental abscess and discussed his case with surgery and believe ENT. Doing a biopsy is more appropriate considering that he may have malignancy in the oral cavity. REVIEW OF SYSTEMS: CARDIOVASCULAR: No chest pain, no orthopnea, no PND, no palpitations. PULMONARY: Denied any shortness of breath. No cough or hemoptysis. GASTROINTESTINAL: No diarrhea, nausea or vomiting. No abdominal pain. Normoactive bowel sounds. NEUROLOGIC: No headaches, no weakness, no numbness. Medications were reviewed. PHYSICAL EXAMINATION: VITAL SIGNS: Temperature 96.2, pulse 88, respiratory rate of 18, blood pressure is 144/76, saturating at 96% on 2 L O2 nasal cannula. GENERAL: The patient is alert and oriented x3, not in any acute distress. Well developed, well nourished. HEENT: The patient does have significant lymph node enlargement and possible abscess on the left side premolar and molar area upper and lower and there is a bit of fungating mass as well. Possibility of squamous cell carcinoma. Pupils are round and equally reacting to light. EOMI. No scleral icterus. No conjunctival pallor. Normocephalic, atraumatic. No pharyngeal erythema. No thyromegaly. CARDIOVASCULAR: S1 and S2 present. No murmurs, rubs, or gallops. PULMONARY: Chest is clear to auscultation, no wheezing or crackles. ABDOMEN: Soft, nontender, nondistended, normoactive bowel sounds. No palpable organomegaly. MUSCULOSKELETAL: No joint swelling or deformity. EXTREMITIES: No cyanosis, clubbing, or pedal edema. NEUROLOGICAL: Gross neurological examination did not reveal any focal deficits. SKIN: No rashes. LABORATORY DATA: CBC and are abnormal for elevated WBC 14,200. ASSESSMENT AND PLAN: 1. Possible dental abscess leading to systemic inflammatory response syndrome for which the patient will be continued on Unasyn. 2. Possible oral pharyngeal malignancy versus lymphoma for which patient will need biopsy. 3. Anemia of chronic disease. 4. Alcohol abuse. Patient is being watched for alcohol withdrawal alcohol and patient is on alcohol withdrawal precautions at this point of time.
--- NOTE | 2017-03-26 17:59 | CONS ---
DATE OF CONSULTATION: REASON FOR CONSULTATION: Neck/mouth abscess. HISTORY: This is 71-year-old white male who states that about a month ago he developed some dental pain/oral pain on the left and had a loose tooth which he actually removed himself. He has had some intermittent bleeding from the left side of the mouth and some soreness. He also over the last month has developed lymphadenopathy. He [facility] a [facility] which I do not have the actual report but per Dr. Sterling's note this showed abnormal lymphadenopathy in the neck, left greater than right, as well as PET scan lighting up left mandible with extensive soft tissue mass and erosive appearance as well as hypermetabolic uptake. There was some suggestion of lymphoma. The patient has a previous long history of alcohol and tobacco abuse and chronic obstructive pulmonary disease. He has had no respiratory difficulty or dysphagia. PAST MEDICAL HISTORY: Positive for chronic obstructive pulmonary disease, GERD, hypertension. Medications on admission were: 1. Omeprazole. 2. Iron. 3. Naprosyn. 4. Lopressor. 5. Motrin. 6. Symbicort. 7. Ventolin. ALLERGIES: No known drug allergies. FAMILY HISTORY: Positive for chronic obstructive pulmonary disease. SOCIAL HISTORY: Positive for smoking and alcohol use. REVIEW OF SYSTEMS: As above and otherwise noncontributory. PHYSICAL EXAM: Vital signs are as noted in the chart already. HEENT: Head normocephalic, atraumatic. EARS: Bilaterally canals are clear. Tympanic membranes unremarkable. The nose shows no drainage or obstruction. Mouth and throat show a large fungating exophytic friable lesion over the left posterior mandible. This measures approximately 6 x 4 cm. This bleeds quite easily. Dentition is quite poor otherwise. Multiple carious teeth. No trismus, oropharynx is unremarkable. Neck is obese, nontender but with diffuse moderate adenopathy noted, especially on the left. These are firm, mildly tender and mobile. ASSESSMENT: 1. Right oral lesion. 2. Cervical lymphadenopathy. PLAN: Recommend an incisional biopsy of the oral lesion and reviewed the indications, alternatives, potential risks and benefits of the procedure today with the patient, with risks including but not inclusive of the risk of local anesthesia, bleeding, infection, scarring, nondiagnostic study and need for further procedure in the future. Patient does understand that this is an incisional biopsy is not therapeutic but meant to be diagnostic. The patient understands these risks and agree to proceed. This was performed at the bedside and sent to the pathology lab in formalin. Would suspect that the lymphadenopathy is secondary and related to the oral mass. Therefore, at this point, I am certain open biopsy would be contraindicated in the neck. Could consider ultrasound-guided fine-needle aspiration of lymph node; however, likely this is related and certainly if the lesion is squamous cell carcinoma then it would be expected that the neck nodes are related to this. Dr. Lares is already consulted. We will await biopsy results. Depending on biopsy results would need to proceed accordingly. Certainly this is a very large lesion and would be beyond the expertise of any head and neck surgeon in [place] [facility] especially in light of the fact that even though the Panorex was read as being and no lytic lesion, there is obvious lytic area of this mandible as reviewed by myself and Dr. Wills today. Therefore pending biopsy results, certainly would need to consider transfer to tertiary care institution for further management. If he is not deemed a surgical candidate, then consider chemoradiation although this may well not be curative with this lesion especially with bony erosion. I did review these possibilities with the patient already. Therefore he is aware. Would await the pathology report and continue further work-up with Dr. Lares in the meantime. If there are questions or concerns, please feel free to contact me.
--- NOTE | 2017-03-26 18:01 | PCN ---
DATE OF PROCEDURE: PREOPERATIVE DIAGNOSIS: Large fungating left oral lesion. POSTOPERATIVE DIAGNOSIS: Large fungating left oral lesion. PROCEDURE PERFORMED: Incisional biopsy left intraoral lesion. ANESTHESIA: None. COMPLICATIONS: None. ESTIMATED BLOOD LOSS: Minimal, less than 5 mL. PROCEDURE: Patient was in the hospital bed in supine position. Informed consent was obtained. The patient was prepped and draped in the usual aseptic fashion. An approximately 8 mm portion of the anterior portion of this lesion was removed with scissors and forceps. This was placed in formalin and sent to the pathology department for evaluation. Hemostasis was gained with silver nitrate and local pressure with gauze and was good. The patient tolerated this well with no complications.
--- NOTE | 2017-03-26 18:14 | P.CONS ---
History of Present Illness - Reason for Consult Consult date: 03/26/17 lymphadenopathy, hypercalcemia - History of Present Illness the patient is 71-year-old gentleman, who presented with approximately a 3 month history of pain and swelling in a left lower molar. In addition, he had noted progressive swelling associated with the left upper neck , with progression downwards over the last 3 months. He was seen by his PCP, at the [place] [facility] in detail, and had computed tomography scan of the soft tissue of the neck, as well as PET scan done within the last few weeks. The PET scan confirmed extensive adenopathy in the left neck, and also showed adenopathy on the right side. The patient actually removed the offending molar on the left side himself about 3 weeks ago. This PET scan showed extensive adenopathy, which is confluent, in the left cervical chain extending from the angle of the mandible all the way down to the thoracic inlet, with hypermetabolism. Lesser degree of hypermetabolic adenopathy was also seen on the right side, most prominently related to the right sternomastoid. In addition, uptake was also seen in the left axilla, as well as in relation to the colon and liver. Splenomegaly was also noted. In addition erosive changes were noted in the left mandible. The patient was admitted because of progression of the left neck swelling, oral pain, as well as the PET and CT findings. He was seen by oral surgery and ENT today, and had some debridement of the mandibular lesion done. Labs have also shown elevation of calcium at 11.5. Consult was therefore placed for further evaluation and recommendations Review of Systems Constitutional: Reports fatigue, Reports weakness Eyes: denies blurred vision, denies pain Ears: deny: decreased hearing, ear discharge, earache, tinnitus Ears, nose, mouth and throat: Reports as per HPI, Reports dental pain, Reports neck fullness/pressure, Reports neck lump, Reports swelling in mouth Cardiovascular: Reports decreased exercise tolerance Respiratory: Denies cough Gastrointestinal: Denies abdominal pain, Denies diarrhea, Denies nausea, Denies vomiting Genitourinary: Reports as per HPI (no specific complaints) Musculoskeletal: Denies myalgias Integumentary: Denies pruritus, Denies rash Neurological: Denies numbness, Denies weakness Psychiatric: Denies anxiety, Denies depression Endocrine: Denies fatigue, Denies weight change Hematologic/Lymphatic: Reports lymphadenopathy Past Medical History Past Medical History: COPD, GERD/Reflux, Hypertension Additional Past Medical History / Comment(s): maleria, nebulizer at home. History of Any Multi-Drug Resistant Organisms: None Reported Past Surgical History: Bowel Resection Additional Past Surgical History / Comment(s): colonoscopy Past Anesthesia/Blood Transfusion Reactions: No Reported Reaction Past Psychological History: No Psychological Hx Reported Smoking Status: Former smoker Past Alcohol Use History: Daily Additional Past Alcohol Use History / Comment(s): 24 beers daily and occasional vodka and orange juice. Past Drug Use History: None Reported - Past Family History Father History Unknown: Yes Mother Family Medical History: COPD Sister(s) Family Medical History: No Reported History Brother(s) Family Medical History: No Reported History Daughter(s) Family Medical History: Myocardial Infarction ([place]) Son(s) Family Medical History: No Reported History Medications and Allergies Home Medications Medication Instructions Recorded Confirmed Type Albuterol Inhaler [Ventolin Hfa 1 - 2 puff INHALATION RT-QID PRN 01/30/16 History Inhaler] Albuterol Nebulized [Ventolin 2.5 mg INHALATION RT-Q4H PRN 08/24/16 03/25/17 History Nebulized] Budesonide-Formot 160-4.5 Mcg 2 puff INHALATION RT-BID 08/24/16 03/25/17 History [Symbicort 160-4.5 Mcg Inhaler] Naproxen 500 mg PO BID PRN 08/24/16 03/25/17 History Omeprazole 40 mg PO AC-BRKFST 08/24/16 03/25/17 History Ibuprofen [Motrin] 400 mg PO Q6HR PRN 01/04/17 03/25/17 History Ferrous Sulfate [Feosol] 325 mg PO DAILY 03/25/17 03/25/17 History Metoprolol Tartrate [Lopressor] 25 mg PO BID 03/25/17 03/25/17 History Allergies Allergy/AdvReac Type Severity Reaction Status Date / Time No Known Allergies Allergy Verified 03/25/17 12:08 Physical Exam Vitals: Vital Signs Temp Pulse Pulse Resp BP Pulse Ox 03/26/17 15:00 97.4 F L 94 16 135/75 97 03/26/17 14:20 92 18 04/26/17 08:00 88 92 18 03/26/17 07:49 88 96 03/26/17 07:00 96.8 F L 92 18 144/76 96 03/26/17 01:14 92 03/25/17 23:05 98.1 F 86 18 167/72 98 03/25/17 19:59 88 03/25/17 19:44 90 Intake and Output 03/26/17 03/26/17 03/26/17 06:59 14:59 22:59 Intake Total 550 0 Balance 550 0 Intake: Oral 550 0 Other: # Voids 3 2 - Constitutional General appearance: no acute distress - EENT irregular infiltrative type growth left posterior mandible. Difficult to evaluate further as is status post recent biopsy Eyes: EOMI, PERRLA - Neck Neck: lymphadenopathy (confluent adenopathy starting in the submandibular area, extending down to the left sternomastoid area. Palpable node posterior to right sternomastoid about 2 cm in size) - Respiratory Respiratory: bilateral: CTA - Cardiovascular Rhythm: regular Heart sounds: normal: S1, S2 - Gastrointestinal General gastrointestinal: normal bowel sounds, soft - Integumentary Integumentary: normal - Neurologic Neurologic: CNII-XII intact - Musculoskeletal Musculoskeletal: strength equal bilaterally - Psychiatric Psychiatric: A&O x's 3, appropriate affect Results CBC & Chem 7: 03/25/17 12:44 03/25/17 12:44 Labs: Microbiology - Last 24 Hours (Table) 03/26/17 05:55 Urine Culture - Preliminary Urine,Voided Comments: CT soft tissue neck, and PET scan report reviewed, Assessment and Plan (1) Cervical lymphadenopathy Narrative/Plan: the clinical picture is obviously highly suggestive of malignancy. Possible primaries include lymphoma, as well as the oral cancer, with the lymph node involvement. Given the extent of adenopathy, lymphoma somewhat more likely. However, before ENT/oral surgery evaluation, the findings related to the left mandible were also suspicious for malignancy. - At this time the patient has had a biopsy of the oral lesion. We'll await those results. If the biopsy shows lymphoma, then additional biopsies will not be needed (unless more tissue is required for additional testing). If the biopsy is positive for squamous cell oral cancer, then I would recommend lymph node sampling, to rule out a second primary. Case discussed with Dr. Diaz - Despite the extensive adenopathy, the patient denies any compromise of swallowing or breathing Status: Acute (2) Anemia Narrative/Plan: anemia due to malignancy is the primary consideration. I will order additional labs were workup. Hemoglobin is in a safe range, and does not require supplementation currently. Continue to monitor Status: Acute (3) Hypercalcemia Narrative/Plan: this is likely malignant in etiology. I will increase his IV fluids. Bisphosphonates could get a risk of jaw necrosis, due to ongoing erosion in the left mandible, as well as recent biopsy. I will therefore give him limited doses of calcitonin if calcium does not improve, with increase in IV fluids Status: Acute
[2017-03-27] MEDS: ALBUTEROL NEBULIZED 2.5 MG/3 ML INHALATION PRN (00:10)
[2017-03-27] MEDS: AMPICILLIN-SULBACTAM 3 GM in SODIUM CHLORIDE 0.9% 100 ML IVPB SCH ×3 (05:58→17:04)
[2017-03-27] MEDS: PANTOPRAZOLE 40 MG TABLET PO SCH (07:49)
[2017-03-27] MEDS: HEPARIN SODIUM,PORCINE 5,000 UNIT/ML 1 ML VIAL SQ SCH ×2 (07:49→20:57)
[2017-03-27] MEDS: METOPROLOL TARTRATE 25 MG TAB PO SCH ×2 (07:50→20:56)
[2017-03-27] MEDS: SODIUM CHLORIDE 0.9% 1,000 ML IV SCH ×2 (07:50→16:00)
[2017-03-27 08:18] LABS: Anisocytosis Slight; CH 20.2; CHCM 25.5; HCT 27.1 % (39.0-53.0); HDW 3.21; HGB 7.6 gm/dL (13.0-17.5); Hypochromasia Marked; MCH 22.3 pg (25.0-35.0); MCHC 28.2 g/dL (31.0-37.0); MCV 79.3 fL (80.0-100.0); Mean Platelet Volume 7.4; Microcytosis Slight; RBC 3.42 m/uL (4.30-5.90); WBC 9.5 k/uL (3.8-10.6)
[2017-03-27] MEDS: SYMBICORT 160-4.5 MCG INHALER INHALATION SCH ×2 (10:00→19:53)
[2017-03-27 10:35] LABS: ALT 25 U/L (21-72); AST 31 U/L (17-59); Alkaline Phosphatase 121 U/L (38-126); Anion Gap 6 mmol/L; Blood Urea Nitrogen 7 mg/dL (9-20); Carbon Dioxide 32 mmol/L (22-30); Chloride 104 mmol/L (98-107); Glucose 113 mg/dL (74-99); Iron 12 ug/dL (49-181); Non-African American GFR(MDRD) >60 (>60 ml/min/1.73 sqM); Potassium 4.4 mmol/L (3.5-5.1); Sodium 142 mmol/L (137-145); Total Bilirubin 0.7 mg/dL (0.2-1.3); Total Protein 6.3 g/dL (6.3-8.2)
[2017-03-27 10:48] LABS: % Iron Saturation 3.3 % (20-50); Total Iron Binding Capacity 360 ug/dL (261-462)
[2017-03-27] MEDS ORDERED: IPRATROPIUM-ALBUTEROL 3 ML NEB INHALATION PRN (11:08)
[2017-03-27 11:24] LABS: Vitamin B12 608 pg/mL
[2017-03-27] MEDS: IPRATROPIUM-ALBUTEROL 3 ML NEB INHALATION SCH ×3 (11:25→19:53)
[2017-03-27] MEDS: predniSONE 20 MG TAB PO SCH (11:57)
[2017-03-27] MEDS: THIAMINE 100 MG TAB PO SCH ×2 (11:58→16:03)
[2017-03-27] MEDS: FOLIC ACID 1 MG TAB PO SCH (11:58)
[2017-03-27] MEDS: MULTIVITAMINS, THERA 1 EACH TAB PO SCH (11:58)
--- NOTE | 2017-03-27 13:14 | PN ---
Patient is admitted with left neck swelling and mass in the left mandible which is a fungating lesion, highly suspicious for squamous cell carcinoma, eroding the left mandible. Patient is on antibiotics; may not be much beneficial. Will go ahead and continue with that. Patient is also wheezing quite a bit, is in COPD exacerbation. Patient will be started on inhalational treatments and systemic steroids. Patient does have hypercalcemia. Will give him calcitonin. Patient has iron deficiency anemia, severe, with very low ferritin of 14. Will give him IV supplementation. REVIEW OF SYSTEMS: CARDIOVASCULAR: No chest pain, no orthopnea, no PND, no palpitations. PULMONARY: Denied any shortness of breath. No cough or hemoptysis. GASTROINTESTINAL: No diarrhea, nausea or vomiting. No abdominal pain. Normoactive bowel sounds. NEUROLOGIC: No headaches, no weakness, no numbness. Medications were reviewed. Medication changes as mentioned in the interval history. PHYSICAL EXAMINATION: VITAL SIGNS: Temperature 97.4, pulse of 84, respiratory rate 20. Blood pressure is 147/68. Saturating at 94% on 3 L of oxygen by nasal cannula. GENERAL: The patient is alert and oriented x3, not in any acute distress. Well developed, well nourished. HEENT: No significant change compared to yesterday. CARDIOVASCULAR: S1 and S2 present. No murmurs, rubs, or gallops. PULMONARY: Chest is clear to auscultation, no wheezing or crackles. ABDOMEN: Soft, nontender, nondistended, normoactive bowel sounds. No palpable organomegaly. MUSCULOSKELETAL: No joint swelling or deformity. EXTREMITIES: No cyanosis, clubbing, or pedal edema. NEUROLOGICAL: Gross neurological examination did not reveal any focal deficits. SKIN: No rashes. LABORATORY DATA: Significant ones already discussed above. Hemoglobin is 7.6. ASSESSMENT AND PLAN: 1. Left-sided neck swelling along with a fungating lesion in the left jaw, highly suspicious for squamous cell cancer with secondary cancer which is lymphoma or metastatic squamous cell cancer to the lymph nodes with low possibility of dental abscess or gingivitis, for which patient is in Unasyn, which will be continued. 2. Anemia; appears to be iron deficiency anemia. 3. Hypercalcemia secondary to possible malignancy. Patient will be given calcitonin. 4. Chronic obstructive pulmonary disease exacerbation, for which patient will be started on systemic steroids and inhalational treatments, as mentioned above. 5. Alcohol abuse. Does not have any significant withdrawals, and that is not a major issue at this point of time. 6. Leukocytosis which is probably due to gingivitis or cancer itself, improved at this point of time.
[2017-03-27] MEDS ORDERED: SODIUM FERRIC GLUCONAT-SUCROSE 125 MG in SODIUM CHLORIDE 0.9% 100 ML IVPB ONE (13:30)
[2017-03-27] MEDS: ALBUTEROL NEBULIZED 2.5 MG/3 ML INHALATION SCH (14:31)
[2017-03-27] MEDS: HYDROcodone/APAP 5-325MG 1 EACH TAB PO PRN (19:14)
[2017-03-28] MEDS: AMPICILLIN-SULBACTAM 3 GM in SODIUM CHLORIDE 0.9% 100 ML IVPB SCH ×3 (00:26→11:24)
[2017-03-28] MEDS: SODIUM CHLORIDE 0.9% 1,000 ML IV SCH ×3 (00:28→17:09)
[2017-03-28 07:56] LABS: Anion Gap 7 mmol/L; Blood Urea Nitrogen 10 mg/dL (9-20); Calcium 11.9 mg/dL (8.4-10.2); Carbon Dioxide 30 mmol/L (22-30); Chloride 106 mmol/L (98-107); Glucose 101 mg/dL (74-99); Non-African American GFR(MDRD) >60 (>60 ml/min/1.73 sqM); Potassium 4.3 mmol/L (3.5-5.1); Sodium 143 mmol/L (137-145)
[2017-03-28] MEDS: HEPARIN SODIUM,PORCINE 5,000 UNIT/ML 1 ML VIAL SQ SCH ×2 (08:20→21:31)
[2017-03-28] MEDS: METOPROLOL TARTRATE 25 MG TAB PO SCH ×2 (08:20→21:31)
[2017-03-28] MEDS: predniSONE 20 MG TAB PO SCH (08:20)
[2017-03-28] MEDS: PANTOPRAZOLE 40 MG TABLET PO SCH (08:20)
[2017-03-28] MEDS: IPRATROPIUM-ALBUTEROL 3 ML NEB INHALATION SCH ×4 (09:02→19:32)
[2017-03-28] MEDS: SYMBICORT 160-4.5 MCG INHALER INHALATION SCH ×3 (09:02→19:34)
[2017-03-28] MEDS ORDERED: LACTATED RINGERS 1,000 ML IV SCH ×2 (11:30→17:00)
[2017-03-28] MEDS ORDERED: SODIUM CHLORIDE 0.9% 1,000 ML IV SCH (11:30)
--- NOTE | 2017-03-28 12:45 | PN ---
The patient was admitted to the hospital with neck swelling and mass and has a fungating lesion, probably suspicious for squamous cell cancer versus lymphoma. Patient is still wheezing and patient is still calcium is still elevated. Patient is receiving calcitonin. REVIEW OF SYSTEMS: CARDIOVASCULAR: No chest pain, no orthopnea, no PND, no palpitations. PULMONARY: Denied any shortness of breath. No cough or hemoptysis. GASTROINTESTINAL: No diarrhea, nausea or vomiting. No abdominal pain. Normoactive bowel sounds. NEUROLOGIC: No headaches, no weakness, no numbness. Medications were reviewed. PHYSICAL EXAMINATION: VITAL SIGNS: Temperature 97.5, pulse of 92, respiratory rate of 22, blood pressure is 141/63, saturating at 98% on room air. GENERAL: The patient is alert and oriented x3, not in any acute distress. Well developed, well nourished. HEENT: No significant change compared to yesterday. CARDIOVASCULAR: S1 and S2 present. No murmurs, rubs, or gallops. PULMONARY: Patient continues to have significant expiratory wheezing. No crackles were appreciated. Will cut down his oxygen. ABDOMEN: Soft, nontender, nondistended, normoactive bowel sounds. No palpable organomegaly. MUSCULOSKELETAL: No joint swelling or deformity. EXTREMITIES: No cyanosis, clubbing, or pedal edema. NEUROLOGICAL: Gross neurological examination did not reveal any focal deficits. SKIN: No rashes. LABORATORY DATA: CBC and CMP essentially within normal limits except for low hemoglobin of 7.6, which is chronic anemia and iron deficiency anemia. ASSESSMENT AND PLAN: 1. Left-sided neck swelling with fungating lesions in the jaw suspicious for squamous cell carcinoma versus lymphoma. 2. Anemia iron deficiency. 3. Chronic obstructive pulmonary disease with acute exacerbation. 4. Hypercalcemia of malignancy. Continue with IV fluids at 150 mL per hour but changed to lactated Ringer's. 5. Alcohol abuse without any alcohol withdrawals at this point of time. 6. Leukocytosis which resolved, which is probably reactive in nature. 7. Possibility of dental abscess for which patient is on Unasyn, which will be switch to Augmentin.
[2017-03-28] MEDS: MULTIVITAMINS, THERA 1 EACH TAB PO SCH (13:14)
[2017-03-28] MEDS: THIAMINE 100 MG TAB PO SCH ×2 (13:14→17:07)
[2017-03-28] MEDS: FOLIC ACID 1 MG TAB PO SCH (13:14)
[2017-03-28] MEDS: HYDROcodone/APAP 5-325MG 1 EACH TAB PO PRN (17:06)
[2017-03-28] MEDS: CALCITONIN INJ 200 UNIT/ML (MDV) VIAL SUBDERMAL SCH (18:04)
[2017-03-28] MEDS: AMOXIC-POT CLAV 875-125MG 1 EACH TAB PO SCH (21:31)
[2017-03-28 23:46] VITALS: RESP 20
[2017-03-29] MEDS: SODIUM CHLORIDE 0.9% 1,000 ML IV SCH (02:52)
[2017-03-29 07:41] VITALS: BP 148/69; TEMP 97.9
[2017-03-29] MEDS: IPRATROPIUM-ALBUTEROL 3 ML NEB INHALATION SCH (08:32)
[2017-03-29] MEDS: SYMBICORT 160-4.5 MCG INHALER INHALATION SCH (08:32)
[2017-03-29 08:46] VITALS: PULSE 94
[2017-03-29] MEDS: AMOXIC-POT CLAV 875-125MG 1 EACH TAB PO SCH (09:13)
[2017-03-29] MEDS: HEPARIN SODIUM,PORCINE 5,000 UNIT/ML 1 ML VIAL SQ SCH (09:13)
[2017-03-29] MEDS: PANTOPRAZOLE 40 MG TABLET PO SCH (09:16)
[2017-03-29] MEDS: METOPROLOL TARTRATE 25 MG TAB PO SCH (09:16)
[2017-03-29] MEDS: predniSONE 20 MG TAB PO SCH (09:16)
[2017-03-29] MEDS: CALCITONIN INJ 200 UNIT/ML (MDV) VIAL SUBDERMAL SCH (10:44)
[2017-03-29 13:36] LABS: Methylmalonic Acid 0.15 umol/L (<0.40)
--- NOTE | 2017-03-30 08:57 | DS ---
DATE OF ADMISSION: 03/27/2017 DATE OF DISCHARGE: 03/29/2017 The patient is a very pleasant 71-year-old gentleman admitted with neck swelling and fungating lesion in the left lower jaw which is ( ) the left lower jaw probably squamous cell carcinoma. Patient may have additionally lymphoma as well with significantly enlarged neck and patient may have dental abscess as well because of which I am discharging Augmentin for one week. Patient was evaluated by ENT oral surgery Dr. Alan Lares. Patient will follow up with Dr. Alan Lares in about a week. After that, decision regarding whether patient will need excisional biopsy of the lymph nodes are not really decided as an outpatient. Patient was also treated for hypercalcemia. His calcium remains at 11.9 and patient will need to drink about 10 glasses of water at home and patient was treated for COPD, which significantly improved and patient received calcitonin yesterday and patient will give him calcitonin again today and after that patient will be discharged to follow up. Patient was seen and examined on the day of discharge. Vital signs were stable. GENERAL: The patient is alert and oriented x3, not in any acute distress. Well developed, well nourished. HEENT: no significant change. CARDIOVASCULAR: S1 and S2 present. No murmurs, rubs, or gallops. PULMONARY: Patient lung wheezing improved, significantly. We will ambulate the patient and get rid of the oxygen. ABDOMEN: Soft, nontender, nondistended, normoactive bowel sounds. No palpable organomegaly. MUSCULOSKELETAL: No joint swelling or deformity. EXTREMITIES: No cyanosis, clubbing, or pedal edema. NEUROLOGICAL: Gross neurological examination did not reveal any focal deficits. SKIN: No rashes. Patient is doing okay. The patient will be discharged. ASSESSMENT AND PLAN: 1. Neck swelling with fungating lesion in jaw suspicious for squamous cell carcinoma versus and/or lymphoma. 2. Iron deficiency anemia for which patient will be started on iron supplementation as well as p.r.n. constipation medications. 3. Chronic obstructive pulmonary disease with acute exacerbation. We will add ipratropium and the patient will be discharged on weaning dose of steroids. 4. Hypercalcemia of malignancy. Patient is receiving IV fluids. 5. Possibility of dental abscess. We will repeat the labs today before discharge and patient will need to drink about 10 big glasses of water at home. Please refer to my depart summary for details of discharge medications. Activity as tolerated. Cardiac diet. Spent greater than 35 minutes in total discharge process. Follow with Dr. Tyson in 3 to 7 days. Follow up with Dr. Lares in about a week
[2017-03-30] MEDS ORDERED: CALCITONIN INJ 200 UNIT/ML (MDV) VIAL SUBDERMAL SCH (09:00)
== END 2017-03-29 11:05 | disposition home or self-care (01) | DRG 147 ==
LOC: EC 11:13 → INTOOBSV 13:26 → 5MS5E 13:26 → OBSVTOIN 03-27 11:47 → 5ONC 03-27 15:07
PROVIDERS: ADMIT Internal Medicine; ATTEND Internal Medicine
PROC: 0CB40ZX Excision of Buccal Mucosa, Open Approach, Diagnostic (ICD-10-PCS; principal; 2017-03-26)
DX: C03.1 Malignant neoplasm of lower gum (principal); C85.90 Non-Hodgkin lymphoma, unspecified, unspecified site; J44.1 Chronic obstructive pulmonary disease with (acute) exacerbation; K04.7 Periapical abscess without sinus; D63.0 Anemia in neoplastic disease; R59.1 Generalized enlarged lymph nodes; D72.829 Elevated white blood cell count, unspecified; E83.52 Hypercalcemia; F10.10 Alcohol abuse, uncomplicated; I10 Essential (primary) hypertension; K05.10 Chronic gingivitis, plaque induced; K21.9 Gastro-esophageal reflux disease without esophagitis; Z79.899 Other long term (current) drug therapy; Z82.49 Family history of ischemic heart disease and other diseases of the circulatory system; Z87.891 Personal history of nicotine dependence
CPT/HCPCS: 36415; 70355; 80048; 80053; 80320; 81003; 82607; 82728; 82747; 83540; 83550; 83921; 85025; 85027; 85045; 85610; 85730; 87040; 87086; 88305; 94640; 94760; 99285

== ENCOUNTER 2017-04-09 21:29 | Inpatient (IN) | payer OTHER, MEDICARE ==
[2017-04-09] MEDS ORDERED: SODIUM CHLORIDE 0.9% 1,000 ML IV STA (22:11)
[2017-04-09] MEDS ORDERED: ALBUTEROL NEBULIZED 2.5 MG/3 ML INHALATION STA (22:11)
[2017-04-09] MEDS ORDERED: IPRATROPIUM 0.5 MG/2.5 ML NEBU INHALATION STA (22:11)
[2017-04-09] MEDS ORDERED: ALBUTEROL NEB (CONC) 2.5 MG/0.5 ML INHALATION STA (22:43)
[2017-04-09 22:44] LABS: Anisocytosis Slight; Basophils # (A) 0.1 k/uL (0-0.2); Basophils % (A) 0 %; CH 21.3; CHCM 27.7; Eosinophils # (A) 0.8 k/uL (0-0.7); Eosinophils % (A) 4 %; HCT 32.7 % (39.0-53.0); HDW 3.18; Hypochromasia Marked; Luc # (Auto) 0.24; Luc % (Auto) 1; Lymphocytes # (A) 1.4 k/uL (1.0-4.8); Lymphocytes % (A) 7 %; MCH 21.9 pg (25.0-35.0); MCHC 28.4 g/dL (31.0-37.0); MCV 77.1 fL (80.0-100.0); Mean Platelet Volume 8.9; Microcytosis Slight; Monocytes # (A) 1.1 k/uL (0-1.0); Monocytes % (A) 6 %; Neutrophils # (A) 15.3 k/uL (1.3-7.7); Neutrophils % (A) 82 %; RBC 4.25 m/uL (4.30-5.90); RDW 19.7 % (11.5-15.5); WBC 18.8 k/uL (3.8-10.6); WBC (Perox) 18.92
[2017-04-09 22:45] LABS: HGB 9.3 gm/dL (13.0-17.5)
[2017-04-09 22:48] LABS: INR 1.2 (<1.1); Prothrombin Time 11.6 sec (9.0-12.0)
[2017-04-09 22:49] LABS: ALT 32 U/L (21-72); AST 34 U/L (17-59); Alkaline Phosphatase 125 U/L (38-126); Anion Gap 10 mmol/L; Blood Urea Nitrogen 11 mg/dL (9-20); Carbon Dioxide 27 mmol/L (22-30); Chloride 101 mmol/L (98-107); Glucose 108 mg/dL (74-99); Magnesium 1.7 mg/dL (1.6-2.3); Non-African American GFR(MDRD) >60 (>60 ml/min/1.73 sqM); Potassium 3.8 mmol/L (3.5-5.1); Sodium 138 mmol/L (137-145); Total Bilirubin 1.3 mg/dL (0.2-1.3); Total Protein 7.3 g/dL (6.3-8.2)
[2017-04-09 22:55] LABS: Polychromasia Present
[2017-04-09 22:56] LABS: Calcium 13.6 mg/dL (8.4-10.2)
[2017-04-09 23:05] LABS: Partial Thromboplastin Time 21.2 sec (22.0-30.0)
--- NOTE | 2017-04-09 23:09 | XR ---
EXAM: XR Chest, 2 Views CLINICAL HISTORY: Reason: difficulty breathing TECHNIQUE: Frontal and lateral views of the chest. COMPARISON: 01/12/13 chest radiography. FINDINGS: Lungs: Bibasilar linear opacities suggest subsegmental atelectasis or scarring. No dense consolidation. Pleural space: Splenic calcifications posteriorly may represent pleural scarring or small pleural effusions. No visible pneumothorax. Heart: Unremarkable. No cardiomegaly. Mediastinum: Unremarkable. Bones/joints: Unremarkable. IMPRESSION: Low lung volumes with linear opacities suggesting extensive atelectasis or mild scarring at the bases. Possible small pleural effusion versus pleural parenchymal scarring posteriorly. No evidence for pneumonia.
--- NOTE | 2017-04-09 23:51 | ED ---
General Adult HPI - General Chief complaint: Recheck/Abnormal Lab/Rx Stated complaint: Dr Sent/Abnormal lab Time Seen by Provider: 04/09/17 22:07 Source: patient Mode of arrival: ambulatory Limitations: no limitations - History of Present Illness Initial comments: Patient sent to the emergency department for hypercalcemia. He has a recent diagnosis of cancer. He was sent to the emergency department by his doctor. He has no fevers or chills. He has no chest pain. He does have shortness of breath. He has a history of COPD and asthma. He has no weakness. He has no lightheadedness or dizziness. - Related Data Home Medications Medication Instructions Recorded Confirmed Albuterol Inhaler [Ventolin Hfa 1 - 2 puff INHALATION RT-QID PRN 01/30/16 Inhaler] Albuterol Nebulized [Ventolin 2.5 mg INHALATION RT-Q4H PRN 08/24/16 04/09/17 Nebulized] Budesonide-Formot 160-4.5 Mcg 2 puff INHALATION RT-BID 08/24/16 04/09/17 [Symbicort 160-4.5 Mcg Inhaler] Omeprazole 40 mg PO AC-BRKFST 08/24/16 04/09/17 Ibuprofen [Motrin] 400 mg PO Q6HR PRN 01/04/17 04/09/17 Metoprolol Tartrate [Lopressor] 25 mg PO BID 03/25/17 04/09/17 Previous Rx's Medication Instructions Recorded Ferrous Sulfate [Feosol] 325 mg PO DAILY #30 tab 03/29/17 Polyethylene Glycol 3350 [Miralax] 17 gm PO DAILY PRN #30 packet 03/29/17 Thiamine [Vitamin B-1] 100 mg PO DAILY #30 tab 03/29/17 Tiotropium [place] [Spiriva] 1 cap INHALATION DAILY #1 device 03/29/17 Allergies Allergy/AdvReac Type Severity Reaction Status Date / Time No Known Allergies Allergy Verified 04/09/17 21:38 Review of Systems ROS Statement: Those systems with pertinent positive or pertinent negative responses have been documented in the HPI. ROS Other: All systems not noted in ROS Statement are negative. Past Medical History Past Medical History: Cancer, COPD, GERD/Reflux, Hypertension Additional Past Medical History / Comment(s): maleria, nebulizer at home. History of Any Multi-Drug Resistant Organisms: None Reported Past Surgical History: Bowel Resection Additional Past Surgical History / Comment(s): colonoscopy Past Anesthesia/Blood Transfusion Reactions: No Reported Reaction Past Psychological History: No Psychological Hx Reported Smoking Status: Former smoker Past Alcohol Use History: Daily Additional Past Alcohol Use History / Comment(s): 24 beers daily and occasional vodka and orange juice. Past Drug Use History: None Reported - Past Family History Father History Unknown: Yes Mother Family Medical History: COPD Sister(s) Family Medical History: No Reported History Brother(s) Family Medical History: No Reported History Daughter(s) Family Medical History: Myocardial Infarction ([place]) Son(s) Family Medical History: No Reported History General Exam Limitations: no limitations General appearance: alert, in no apparent distress Head exam: Present: atraumatic, normocephalic, normal inspection Eye exam: Present: normal appearance, PERRL, EOMI. Absent: scleral icterus, conjunctival injection, periorbital swelling ENT exam: Present: normal exam, mucous membranes moist Neck exam: Present: normal inspection. Absent: tenderness, meningismus, lymphadenopathy Respiratory exam: Present: wheezes. Absent: respiratory distress, rales, rhonchi, stridor Cardiovascular Exam: Present: regular rate, normal rhythm, normal heart sounds. Absent: systolic murmur, diastolic murmur, rubs, gallop, clicks GI/Abdominal exam: Present: soft, normal bowel sounds. Absent: distended, tenderness, guarding, rebound, rigid Extremities exam: Present: normal inspection, full ROM, normal capillary refill. Absent: tenderness, pedal edema, joint swelling, calf tenderness Back exam: Present: normal inspection Neurological exam: Present: alert, oriented X3, CN II-XII intact Psychiatric exam: Present: normal affect, normal mood Skin exam: Present: warm, dry, intact, normal color. Absent: rash Course Vital Signs 04/09/17 04/09/17 04/09/17 21:36 22:53 23:03 Temperature 96.8 F L Pulse Rate 101 H 109 H 93 Respiratory 18 Rate Blood Pressure 145/69 O2 Sat by Pulse 92 L Oximetry EKG Findings - EKG Comments: EKG Findings:: Twelve-lead EKG is obtained, interpreted by me as showing ventricular rate 90 bpm, normal MI interval and Gaurav complexes, no ST elevation or depression, interpreted by me as normal sinus rhythm. Medical Decision Making - Medical Decision Making Patient presents with hypercalcemia. He is also wheezing. He is given breathing treatments. He has no EKG changes. He requires IV fluids. He will be admitted to the hospital. - Lab Data Result diagrams: 04/09/17 22:20 04/09/17 22:20 Lab Results 04/09/17 04/09/17 04/09/17 Range/Units 22:20 22:20 22:20 WBC 18.8 H (3.8-10.6) k/uL RBC 4.25 L (4.30-5.90) m/uL Hgb 9.3 L D (13.0-17.5) gm/dL Hct 32.7 L (39.0-53.0) % MCV 77.1 L (80.0-100.0) fL MCH 21.9 L (25.0-35.0) pg MCHC 28.4 L (31.0-37.0) g/dL RDW 19.7 H (11.5-15.5) % Plt Count 252 (150-450) k/uL Neutrophils % 82 % Lymphocytes % 7 % Monocytes % 6 % Eosinophils % 4 % Basophils % 0 % Neutrophils # 15.3 H (1.3-7.7) k/uL Lymphocytes # 1.4 (1.0-4.8) k/uL Monocytes # 1.1 H (0-1.0) k/uL Eosinophils # 0.8 H (0-0.7) k/uL Basophils # 0.1 (0-0.2) k/uL Polychromasia Present Hypochromasia Marked Anisocytosis Slight Microcytosis Slight PT (9.0-12.0) sec INR (<1.1) APTT (22.0-30.0) sec Sodium 138 (137-145) mmol/L Potassium 3.8 (3.5-5.1) mmol/L Chloride 101 (98-107) mmol/L Carbon Dioxide 27 (22-30) mmol/L Anion Gap 10 mmol/L BUN 11 (9-20) mg/dL Creatinine 0.83 (0.66-1.25) mg/dL Est GFR (MDRD) Af Amer >60 (>60 ml/min/1.73 sqM) Est GFR (MDRD) Non-Af >60 (>60 ml/min/1.73 sqM) Glucose 108 H (74-99) mg/dL Calcium 13.6 H* (8.4-10.2) mg/dL Magnesium 1.7 (1.6-2.3) mg/dL Total Bilirubin 1.3 (0.2-1.3) mg/dL AST 34 (17-59) U/L ALT 32 (21-72) U/L Alkaline Phosphatase 125 (38-126) U/L Troponin I (0.000-0.034) ng/mL NT-Pro-B Natriuret Pep 234 pg/mL Total Protein 7.3 (6.3-8.2) g/dL Albumin 3.7 (3.5-5.0) g/dL 04/09/17 04/09/17 Range/Units 22:20 22:20 WBC (3.8-10.6) k/uL RBC (4.30-5.90) m/uL Hgb (13.0-17.5) gm/dL Hct (39.0-53.0) % MCV (80.0-100.0) fL MCH (25.0-35.0) pg MCHC (31.0-37.0) g/dL RDW (11.5-15.5) % Plt Count (150-450) k/uL Neutrophils % % Lymphocytes % % Monocytes % % Eosinophils % % Basophils % % Neutrophils # (1.3-7.7) k/uL Lymphocytes # (1.0-4.8) k/uL Monocytes # (0-1.0) k/uL Eosinophils # (0-0.7) k/uL Basophils # (0-0.2) k/uL Polychromasia Hypochromasia Anisocytosis Microcytosis PT 11.6 (9.0-12.0) sec INR 1.2 (<1.1) APTT 21.2 L (22.0-30.0) sec Sodium (137-145) mmol/L Potassium (3.5-5.1) mmol/L Chloride (98-107) mmol/L Carbon Dioxide (22-30) mmol/L Anion Gap mmol/L BUN (9-20) mg/dL Creatinine (0.66-1.25) mg/dL Est GFR (MDRD) Af Amer (>60 ml/min/1.73 sqM) Est GFR (MDRD) Non-Af (>60 ml/min/1.73 sqM) Glucose (74-99) mg/dL Calcium (8.4-10.2) mg/dL Magnesium (1.6-2.3) mg/dL Total Bilirubin (0.2-1.3) mg/dL AST (17-59) U/L ALT (21-72) U/L Alkaline Phosphatase (38-126) U/L Troponin I <0.012 (0.000-0.034) ng/mL NT-Pro-B Natriuret Pep pg/mL Total Protein (6.3-8.2) g/dL Albumin (3.5-5.0) g/dL Disposition Clinical Impression: Hypercalcemia Disposition: ADMITTED IP TO THIS HOSP Condition: Fair Time of Disposition: 23:51
[2017-04-09] MEDS ORDERED: ONDANSETRON 4 MG/2 ML VIAL IVP PRN (23:52)
[2017-04-09] MEDS ORDERED: NALOXONE 0.4 MG/ML 1 ML VIAL IV PRN (23:52)
[2017-04-09] MEDS ORDERED: POLYETHYLENE GLYCOL 3350 17 GM POWD.PACK PO PRN (23:53)
[2017-04-09] MEDS ORDERED: IBUPROFEN 200 MG TAB PO PRN (23:53)
[2017-04-10 00:27] LABS: Appearance,Urine Clear (Clear); Bilirubin,Urine Negative (Negative); Glucose,Urine (UA) Negative (Negative); Ketones,Urine Negative (Negative); Leukocyte Esterase,Urine Negative (Negative); Nitrite,Urine Negative (Negative); PH, Urine 5.5 (5.0-8.0); Protein,Urine Negative (Negative); Specific Gravity,Urine 1.012 (1.001-1.035); UA Billing (MACRO vs. MICRO) CHEM; Urobilinogen,Urine <2.0 mg/dL (<2.0)
[2017-04-10] MEDS ORDERED: LORazepam 1 MG TAB PO STA (01:50)
[2017-04-10] MEDS ORDERED: THIAMINE 100 MG/ML 2 ML VIAL IM STA (03:16)
[2017-04-10] MEDS: SODIUM CHLORIDE 0.9% 1,000 ML IV SCH ×2 (04:03→15:14)
[2017-04-10] MEDS: LORazepam 2 MG/ML SYRINGE IV PRN ×2 (05:45→21:49)
[2017-04-10 07:29] LABS: Anisocytosis Slight; Basophils # (A) 0.1 k/uL (0-0.2); Basophils % (A) 0 %; CH 20.5; CHCM 26.5; Eosinophils # (A) 1.1 k/uL (0-0.7); Eosinophils % (A) 7 %; HCT 30.8 % (39.0-53.0); HDW 2.97; HGB 8.5 gm/dL (13.0-17.5); Hypochromasia Marked; Luc # (Auto) 0.24; Luc % (Auto) 2; Lymphocytes # (A) 1.5 k/uL (1.0-4.8); Lymphocytes % (A) 9 %; MCH 21.4 pg (25.0-35.0); MCHC 27.6 g/dL (31.0-37.0); MCV 77.6 fL (80.0-100.0); Mean Platelet Volume 9.1; Microcytosis Slight; Monocytes # (A) 0.9 k/uL (0-1.0); Monocytes % (A) 5 %; Neutrophils # (A) 12.1 k/uL (1.3-7.7); Neutrophils % (A) 77 %; RBC 3.97 m/uL (4.30-5.90); RDW 19.7 % (11.5-15.5); WBC 15.8 k/uL (3.8-10.6); WBC (Perox) 16.79
[2017-04-10 08:01] LABS: ALT 28 U/L (21-72); AST 28 U/L (17-59); Alkaline Phosphatase 107 U/L (38-126); Anion Gap 6 mmol/L; Blood Urea Nitrogen 11 mg/dL (9-20); Calcium 12.9 mg/dL (8.4-10.2); Carbon Dioxide 28 mmol/L (22-30); Chloride 105 mmol/L (98-107); Glucose 110 mg/dL (74-99); Non-African American GFR(MDRD) >60 (>60 ml/min/1.73 sqM); Potassium 3.6 mmol/L (3.5-5.1); Sodium 139 mmol/L (137-145); Total Bilirubin 1.1 mg/dL (0.2-1.3); Total Protein 6.3 g/dL (6.3-8.2)
[2017-04-10] MEDS: FAMOTIDINE 20 MG TAB PO SCH ×2 (08:02→22:05)
[2017-04-10] MEDS: METOPROLOL TARTRATE 25 MG TAB PO SCH ×2 (08:02→22:05)
[2017-04-10] MEDS: THIAMINE 100 MG TAB PO SCH (08:02)
[2017-04-10] MEDS: FERROUS SULFATE 325 MG TAB PO SCH (08:02)
[2017-04-10] MEDS: ALBUTEROL NEBULIZED 2.5 MG/3 ML INHALATION PRN ×4 (08:49→20:36)
[2017-04-10] MEDS: SYMBICORT 160-4.5 MCG INHALER INHALATION SCH ×2 (08:49→20:36)
[2017-04-10] MEDS: TIOTROPIUM 18 MCG/PUFF INHALER INHALATION SCH (11:43)
[2017-04-10 13:49] LABS: % Iron Saturation 294.7 % (20-50)
--- NOTE | 2017-04-10 16:06 | HP ---
DATE OF ADMISSION: 04/09/2017 CHIEF COMPLAINT: Abnormal lab values. HISTORY OF ILLNESS: Mr. 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 He came to the ER for abnormal lab values and was found to have hypercalcemia from Dr. Lares's office. Patient was initially diagnosed with squamous cell carcinoma of the oral cavity and is also planning for excisional lymph node biopsy, lymph nodes as well as an outpatient. The patient was found to have hypercalcemia with a calcium of more than 13, which caused him to come to the hospital. Patient was also hypercalcemic during this admission, was given calcitonin at the time. Otherwise, patient does have a history of COPD. His breathing status is stable now. Otherwise, patient is a poor historian. Denied any complaints of chest pain. No headaches, dizziness or lightheadedness REVIEW OF SYSTEMS: CONSTITUTIONAL: No fever. No chills. RESPIRATORY: No cough. Patient does have underlying shortness of breath. CARDIOVASCULAR: No chest pain. No shortness of breath. No leg swelling. ABDOMEN: No nausea, vomiting or abdominal pain. GENITOURINARY: Negative. ENDOCRINE: Negative. PSYCHIATRY: Negative. All other review of systems negative except as above. Past medical history includes: 1. COPD. 2. GERD. 3. Hypertension. 4. Squamous cell carcinoma of the oral cavity on the left side. 5. Past history of malaria; uses nebulizer at home. PAST SURGICAL HISTORY: 1. Bowel resection. 2. Colonoscopy. No psychosocial history. SOCIAL HISTORY: Patient is a former smoker. Patient does drink daily, 24 beers day, and occasional vodka and orange juice. Denied any drugs or IVDU. FAMILY HISTORY: Mother had COPD. Father unknown. Home medication include: 1. Albuterol inhaler. 2. Ventolin. 3. Symbicort. 4. Omeprazole. 5. Motrin. 6. Metoprolol. 7. Ferrous sulfate. 8. Polyethylene glycol. 9. Thiamine. 10. Spiriva. NO KNOWN DRUG ALLERGIES. PHYSICAL EXAMINATION: [id number]-old male lying in the bed. Awake, alert, oriented x3. Appears to be in no distress. VITALS: Blood pressure is 154/65. Pulse is 84, respiration 16, temperature afebrile, pulse ox 94% on room air. HEENT: Atraumatic, normocephalic. Neck is supple. No JVD. CVS: S1, S2 heard. No murmurs. No gallops. LUNGS: Bilateral diminished air entry. Rhonchi positive. Non-labored breathing. ABDOMEN: Soft, nontender. Bowel sounds are present. ORAL CAVITY: There is a left-sided mass with irregular borders. No purulent drainage noted. 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 No focal deficit. EXTREMITIES: No edema. Pulses palpable bilaterally. No clubbing or cyanosis. PSYCHIATRIC: Cooperative. LABORATORY DATA: WBC 18.8, hemoglobin 9.3, platelets 252. INR 1.2. Sodium 138, potassium 3.8, chloride 101. Bicarb is 27. BUN 11, creatinine 0.83. Calcium 13.6. Liver enzymes are not elevated. Troponin negative. NT-proBNP is 234. UA negative for infection. Chest x-ray shows low lung volume with linear opacities suggestive of extensive atelectasis or mild scarring of the bases. No evidence of pneumonia. Possible small pleural effusion versus pleural parenchymal scarring posteriorly. IMPRESSION: 1. Hypercalcemia, cancer-related. 2. Recently diagnosed squamous cell carcinoma of the oral cavity, status post excisional biopsy. 3. Lymphadenopathy. 4. Chronic obstructive pulmonary disease without exacerbation, stable at this time. 5. Iron deficiency anemia. 6. Gastroesophageal reflux disease. 7. Hypertension. DISCUSSION AND PLAN: Patient will be continued on IV hydration and Dr. Lares has been consulted for hypercalcemia. I will follow up closely. Continue the breathing treatments. Further recommendations based on the clinical course.
[2017-04-10] MEDS ORDERED: THIAMINE 100 MG TAB PO SCH (17:00)
[2017-04-11] MEDS: ALBUTEROL NEBULIZED 2.5 MG/3 ML INHALATION PRN ×3 (04:44→23:43)
[2017-04-11] MEDS: LORazepam 2 MG/ML SYRINGE IV PRN ×3 (07:11→22:14)
[2017-04-11] MEDS: TIOTROPIUM 18 MCG/PUFF INHALER INHALATION SCH (07:52)
[2017-04-11] MEDS: SYMBICORT 160-4.5 MCG INHALER INHALATION SCH ×2 (07:52→19:35)
[2017-04-11] MEDS ORDERED: CALCITONIN INJ 200 UNIT/ML (MDV) VIAL SUBDERMAL SCH (10:30)
[2017-04-11] MEDS: THIAMINE 100 MG TAB PO SCH (12:58)
[2017-04-11] MEDS: METOPROLOL TARTRATE 25 MG TAB PO SCH ×2 (12:58→20:44)
[2017-04-11] MEDS: FERROUS SULFATE 325 MG TAB PO SCH (12:58)
[2017-04-11] MEDS: FAMOTIDINE 20 MG TAB PO SCH ×2 (12:59→20:44)
[2017-04-11] MEDS: SODIUM CHLORIDE 0.9% 1,000 ML IV SCH ×2 (12:59→20:06)
[2017-04-11 13:29] LABS: Anion Gap 6 mmol/L; Blood Urea Nitrogen 8 mg/dL (9-20); Carbon Dioxide 26 mmol/L (22-30); Chloride 110 mmol/L (98-107); Glucose 96 mg/dL (74-99); Non-African American GFR(MDRD) >60 (>60 ml/min/1.73 sqM); Potassium 3.6 mmol/L (3.5-5.1); Sodium 142 mmol/L (137-145)
[2017-04-11 13:31] LABS: Calcium 13.4 mg/dL (8.4-10.2)
[2017-04-11 14:16] LABS: Anisocytosis Slight; Basophils # (A) 0.1 k/uL (0-0.2); Basophils % (A) 1 %; CH 20.7; Eosinophils # (A) 1.4 k/uL (0-0.7); Eosinophils % (A) 9 %; HCT 31.9 % (39.0-53.0); HDW 2.88; HGB 8.4 gm/dL (13.0-17.5); Hypochromasia Marked; Luc # (Auto) 0.25; Luc % (Auto) 2; Lymphocytes # (A) 1.5 k/uL (1.0-4.8); Lymphocytes % (A) 9 %; MCHC 26.4 g/dL (31.0-37.0); MCV 79.7 fL (80.0-100.0); Mean Platelet Volume 7.4; Microcytosis Slight; Monocytes # (A) 1.1 k/uL (0-1.0); Monocytes % (A) 7 %; Neutrophils # (A) 11.5 k/uL (1.3-7.7); Neutrophils % (A) 73 %; RBC 4.01 m/uL (4.30-5.90); RDW 19.8 % (11.5-15.5); WBC 15.8 k/uL (3.8-10.6); WBC (Perox) 16.63
--- NOTE | 2017-04-11 17:23 | P.CONS ---
History of Present Illness - Reason for Consult Consult date: 04/11/17 Malignant hypercalcemia. Squamous cell carcinoma - History of Present Illness The patient is 71-year-old gentleman, initially seen in consult last month here. He had presented with approximately a 3 month history of pain and swelling in a left lower molar. In addition, he had noted progressive swelling associated with the left upper neck, with progression downwards over the last 3 months. He was seen by his PCP, at [facility], and had computed tomography scan of the soft tissue of the neck, as well as PET scan done within the last few weeks. The PET scan confirmed extensive adenopathy in the left neck, and also showed adenopathy on the right side. The patient actually removed the offending molar on the left side himself about 3 weeks ago. This PET scan showed extensive adenopathy, which is confluent, in the left cervical chain extending from the angle of the mandible all the way down to the thoracic inlet, with hypermetabolism. Lesser degree of hypermetabolic adenopathy was also seen on the right side, most prominently related to the right sternomastoid. In addition, uptake was also seen in the left axilla, as well as in relation to the colon and liver. Splenomegaly was also noted. In addition erosive changes were noted in the left mandible. The patient was admitted because of progression of the left neck swelling, oral pain, as well as the PET and CT findings. He was seen by oral surgery and ENT and had some debridement of the mandibular lesion done. He was treated for his hypercalcemia with IV fluid and calcitonin. Bisphosphonates could not be used because of the mandibular erosion. He responded well to the same and was discharged. The biopsy came back positive for squamous cell carcinoma, and he was seen in the office earlier this week for follow-up. The pattern of his adenopathy was not felt to be atypical for head and neck cancer. In addition malignant hypercalcemia with squamous cell head and neck cancer with bone metastasis would also be unusual. Therefore it was decided to biopsy the left axillary lymph node to rule out another primary. Labs on in the office however showed calcium of 13+. The patient was therefore sent in for admission. Review of Systems Constitutional: Reports weakness, Reports weight loss Eyes: denies blurred vision, denies pain Ears: deny: decreased hearing, ear discharge, earache, tinnitus Ears, nose, mouth and throat: Reports as per HPI, Reports swelling in mouth Cardiovascular: Reports dyspnea on exertion Respiratory: Reports dyspnea Gastrointestinal: Denies abdominal pain, Denies diarrhea, Denies nausea, Denies vomiting Genitourinary: Reports as per HPI (No specific complaints) Musculoskeletal: Reports muscle weakness Integumentary: Denies pruritus, Denies rash Neurological: Reports weakness Psychiatric: Reports irritability, Denies anxiety, Denies depression Endocrine: Reports as per HPI (Hypercalcemia) Hematologic/Lymphatic: Reports lymphadenopathy Past Medical History Past Medical History: Cancer, COPD, GERD/Reflux, Hypertension Additional Past Medical History / Comment(s): maleria, nebulizer at home. History of Any Multi-Drug Resistant Organisms: None Reported Past Surgical History: Bowel Resection Additional Past Surgical History / Comment(s): colonoscopy Past Anesthesia/Blood Transfusion Reactions: No Reported Reaction Past Psychological History: No Psychological Hx Reported Smoking Status: Former smoker Past Alcohol Use History: Daily Additional Past Alcohol Use History / Comment(s): 24 beers daily and occasional vodka and orange juice. Past Drug Use History: None Reported - Past Family History Father History Unknown: Yes Mother Family Medical History: COPD Sister(s) Family Medical History: No Reported History Brother(s) Family Medical History: No Reported History Daughter(s) Family Medical History: Myocardial Infarction ([place]) Son(s) Family Medical History: No Reported History Medications and Allergies Home Medications Medication Instructions Recorded Confirmed Type Albuterol Inhaler [Ventolin Hfa 1 - 2 puff INHALATION RT-QID PRN 01/30/16 History Inhaler] Albuterol Nebulized [Ventolin 2.5 mg INHALATION RT-Q4H PRN 08/24/16 04/09/17 History Nebulized] Budesonide-Formot 160-4.5 Mcg 2 puff INHALATION RT-BID 08/24/16 04/09/17 History [Symbicort 160-4.5 Mcg Inhaler] Omeprazole 40 mg PO AC-BRKFST 08/24/16 04/09/17 History Ibuprofen [Motrin] 400 mg PO Q6HR PRN 01/04/17 04/09/17 History Metoprolol Tartrate [Lopressor] 25 mg PO BID 03/25/17 04/09/17 History Allergies Allergy/AdvReac Type Severity Reaction Status Date / Time No Known Allergies Allergy Verified 04/10/17 03:58 Physical Exam Vitals: Vital Signs Temp Pulse Pulse Resp BP Pulse Ox 04/11/17 15:00 97.4 F L 91 16 165/67 94 L 04/11/17 08:02 90 04/11/17 07:52 88 04/11/17 07:00 97.2 F L 91 18 169/77 96 04/11/17 04:59 92 04/11/17 04:44 92 04/11/17 04:00 98.6 F 88 16 130/92 95 04/10/17 21:45 98.8 F 18 154/72 92 L 04/10/17 20:47 92 04/10/17 20:36 96 04/10/17 20:00 81 18 Intake and Output 04/11/17 04/11/17 04/11/17 06:59 14:59 22:59 Intake Total 664 Balance 664 Intake: Intake, IV Titration 664 Amount Sodium Chloride 0.9% 1, 664 000 ml @ 125 mls/hr IV . Q8H [facility] Rx#:[id number] Other: # Voids 2 # Bowel Movements 2 - Constitutional General appearance: no acute distress - EENT Irregular mass, involving the left mandible in the premolar region, extending into the adjacent gingiva and gingival fossa Eyes: EOMI, PERRLA - Neck Neck: lymphadenopathy (Extensive confluent lymphadenopathy bilaterally, left greater than right) Thyroid: bilateral: normal size - Respiratory Respiratory: bilateral: CTA - Cardiovascular Rhythm: regular Heart sounds: normal: S1, S2 - Gastrointestinal General gastrointestinal: normal bowel sounds, soft - Integumentary Integumentary: normal - Neurologic Neurologic: CNII-XII intact - Musculoskeletal Musculoskeletal: generalized weakness, strength equal bilaterally - Psychiatric Psychiatric: A&O x's 3, appropriate affect 3-4 cm palpable lymph node left anterior axilla Results CBC & Chem 7: 04/11/17 12:44 04/11/17 12:44 Labs: Abnormal Lab Results - Last 24 Hours (Table) 04/10/17 04/10/17 04/11/17 Range/Units 06:40 13:57 12:44 WBC 15.8 H (3.8-10.6) k/uL RBC 4.01 L (4.30-5.90) m/uL Hgb 8.4 L (13.0-17.5) gm/dL Hct 31.9 L (39.0-53.0) % MCV 79.7 L (80.0-100.0) fL MCH 21.0 L (25.0-35.0) pg MCHC 26.4 L (31.0-37.0) g/dL RDW 19.8 H (11.5-15.5) % Neutrophils # 11.5 H (1.3-7.7) k/uL Monocytes # 1.1 H (0-1.0) k/uL Eosinophils # 1.4 H (0-0.7) k/uL Chloride (98-107) mmol/L BUN (9-20) mg/dL Calcium (8.4-10.2) mg/dL Vitamin D 25-Hydroxy 9.5 L (30.0-100.0) ng/mL PTH Intact <5.5 L (14.0-72.0) pg/mL 04/11/17 Range/Units 12:44 WBC (3.8-10.6) k/uL RBC (4.30-5.90) m/uL Hgb (13.0-17.5) gm/dL Hct (39.0-53.0) % MCV (80.0-100.0) fL MCH (25.0-35.0) pg MCHC (31.0-37.0) g/dL RDW (11.5-15.5) % Neutrophils # (1.3-7.7) k/uL Monocytes # (0-1.0) k/uL Eosinophils # (0-0.7) k/uL Chloride 110 H (98-107) mmol/L BUN 8 L (9-20) mg/dL Calcium 13.4 H* (8.4-10.2) mg/dL Vitamin D 25-Hydroxy (30.0-100.0) ng/mL PTH Intact (14.0-72.0) pg/mL Chest x-ray: report reviewed Assessment and Plan (1) Hypercalcemia Narrative/Plan: This is malignant, 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 The patient did not have bone metastasis on PET scan. This could not be treated outpatient, as the patient cannot have Denosumab or bisphosphonates, due to his mandibular erosion. He therefore was admitted for treatment. The patient's case was discussed with the admitting service. Calcium is still in the 13 range today. His IV fluid rate is somewhat low at less than 100. He was also receiving a comparatively low dose of calcitonin. IV fluid rate will be increase, along with the dose of the calcitonin. I will also add steroids. Continue to monitor calcium. The patient is fairly symptomatic. Therefore once calcium is normalized, he can potentially be discharged home. Status: Acute (2) Head and neck cancer Narrative/Plan: The patient has biopsy-proven head and neck cancer. The question in his case is whether he has a second primary, based on the pattern of lymph node involvement noted on PET scan. Axillary node involvement, as well as ashok portal node involvement noted on PET scan, would BE unusual with squamous cell carcinoma of the head and neck. Therefore the plan is to do a biopsy of the left axillary node. This can be done as an outpatient. If he is still inpatient next week, surgery or radiology will be consulted that time. Status: Acute (3) Anemia Narrative/Plan: This is felt to be partly from malignancy. However labs for workup had shown evidence of iron deficiency. He will receive IV iron Status: Acute
--- NOTE | 2017-04-11 18:05 | XR ---
EXAMINATION TYPE: XR abdomen complete w decub DATE OF EXAM: 04/11/2017 5:43 PM COMPARISON: 12/19/2011 HISTORY: Abdominal pain TECHNIQUE: Supine, upright, and left side down lateral decubitus views of the abdomen are obtained. FINDINGS: There is no sign of intestinal obstruction or pneumoperitoneum. Fecal pattern is normal. There are no pathologic calcifications over the kidneys. There is vascular calcification. There is probably some atelectasis at the right lung base. IMPRESSION: Nonacute abdomen. No adverse change compared to old exam.
[2017-04-11] MEDS: SODIUM FERRIC GLUCONAT-SUCROSE 125 MG in SODIUM CHLORIDE 0.9% 100 ML IVPB SCH (19:58)
[2017-04-11] MEDS: CALCITONIN INJ 200 UNIT/ML (MDV) VIAL SUBDERMAL SCH (20:45)
[2017-04-11] MEDS: methylPREDNISolone SOD SUCCI 125 MG/2 ML VIAL IV SCH (20:46)
[2017-04-12] MEDS: SODIUM CHLORIDE 0.9% 1,000 ML IV SCH ×2 (01:41→15:30)
[2017-04-12] MEDS: LORazepam 2 MG/ML SYRINGE IV PRN ×7 (04:06→16:01)
[2017-04-12 07:16] LABS: Anisocytosis Moderate; Basophils % (A) 0 %; CH 20.9; CHCM 26.2; Eosinophils % (A) 0 %; HCT 30.7 % (39.0-53.0); HDW 2.93; HGB 8.2 gm/dL (13.0-17.5); Hypochromasia Marked; Luc # (Auto) 0.08; Luc % (Auto) 1; Lymphocytes # (A) 0.6 k/uL (1.0-4.8); Lymphocytes % (A) 5 %; MCH 21.3 pg (25.0-35.0); MCHC 26.6 g/dL (31.0-37.0); MCV 79.8 fL (80.0-100.0); Mean Platelet Volume 7.9; Microcytosis Slight; Monocytes # (A) 0.2 k/uL (0-1.0); Monocytes % (A) 1 %; Neutrophils % (A) 93 %; RBC 3.84 m/uL (4.30-5.90); RDW 20.3 % (11.5-15.5); WBC 11.9 k/uL (3.8-10.6); WBC (Perox) 12.96
[2017-04-12 07:27] LABS: Anion Gap 8 mmol/L; Blood Urea Nitrogen 9 mg/dL (9-20); Calcium 11.8 mg/dL (8.4-10.2); Carbon Dioxide 25 mmol/L (22-30); Chloride 112 mmol/L (98-107); Glucose 144 mg/dL (74-99); Non-African American GFR(MDRD) >60 (>60 ml/min/1.73 sqM); Potassium 3.4 mmol/L (3.5-5.1); Sodium 145 mmol/L (137-145)
[2017-04-12] MEDS: FERROUS SULFATE 325 MG TAB PO SCH (07:56)
[2017-04-12] MEDS: ENOXAPARIN 30 MG/0.3 ML SYRINGE SQ SCH (07:56)
[2017-04-12] MEDS: SODIUM FERRIC GLUCONAT-SUCROSE 125 MG in SODIUM CHLORIDE 0.9% 100 ML IVPB SCH (07:56)
[2017-04-12] MEDS: methylPREDNISolone SOD SUCCI 125 MG/2 ML VIAL IV SCH (07:57)
[2017-04-12] MEDS: THIAMINE 100 MG TAB PO SCH (07:57)
[2017-04-12] MEDS: METOPROLOL TARTRATE 25 MG TAB PO SCH (07:57)
[2017-04-12] MEDS: FAMOTIDINE 20 MG TAB PO SCH (07:57)
[2017-04-12] MEDS: TIOTROPIUM 18 MCG/PUFF INHALER INHALATION SCH (08:36)
[2017-04-12] MEDS: SYMBICORT 160-4.5 MCG INHALER INHALATION SCH ×2 (08:36→18:50)
[2017-04-12] MEDS: CALCITONIN INJ 200 UNIT/ML (MDV) VIAL SUBDERMAL SCH (09:16)
--- NOTE | 2017-04-12 12:40 | PN ---
DATE OF SERVICE: 04/11/2017 Mr. Griffiths is a 71-year-old male with known history of recently diagnosed squamous cell carcinoma of the left side oral cavity, status post excisional biopsy on 03/26/2017, COPD, hypercalcemia, and most likely hypercalcemia related to malignancy and lymphadenopathy. Awaiting biopsy. Came to the ER due to hypercalcemia, currently being continued on IV fluids and also being watched for alcohol withdrawal symptoms. Patient was started on calcitonin and Oncology is following this patient. Calcium level is still elevated. Currently denied any complaints of chest pain. No worsening short of breath. Patient did have bowel movement today. Patient was found to have abdominal distention and abdominal x-ray showed nonspecific abdomen. No change compared to the previous exam. Otherwise, patient denied any fever or chills. No abdominal pain. No nausea or vomiting. REVIEW OF SYSTEMS: CONSTITUTIONAL: No fever. No chills. RESPIRATORY: No cough or sputum production. CARDIOVASCULAR: No chest pain. No worsening shortness of breath. CARDIOVASCULAR: No leg swelling. ABDOMEN: No nausea, vomiting, or abdominal pain. GENITOURINARY: Negative. ENDOCRINE: Negative. PSYCHIATRY: Negative. SKIN: Negative. MUSCULOSKELETAL: Negative. All other fourteen-point review of systems negative except as above. CURRENT MEDICATIONS: Reviewed. PHYSICAL EXAMINATION: A 71-year-old male lying in bed comfortably, awake, alert, oriented x3. Appears to be in no distress. Patient is a poor historian. VITALS: Blood pressure is 165/67, pulse is 91, respirations 16, temperature afebrile, pulse ox 94% on room air. HEENT: Atraumatic, normocephalic. Neck is supple. No JVD. CVS EXAM: S1, S2 heard, no murmurs, no gallop. LUNGS: Bilateral air entry is present. Diminished air entry basally. Nonlabored breathing. Abdomen is soft, nontender, slightly distended. No palpable organomegaly. No guarding or rigidity. CRIME SCENE PHOTOGRAPHER: Awake, alert, oriented, x3. No focal deficit. EXTREMITIES: No edema. Pulses palpable bilaterally. No clubbing or cyanosis. PSYCHIATRIC: Cooperative. LABORATORY DATA: WBC 15.8, hemoglobin 8.4, platelets 188, MCV 79.7, sodium 142, potassium 3.6, chloride 110, bicarb is 26. BUN 8, creatinine 0.80, calcium level is 13.4. ( ) is marginally elevated. IMPRESSION: 1. Patient was started on calcitonin as per Oncology recommendations with recently diagnosed squamous cell carcinoma of the left side of oral cavity, status post excisional biopsy, being followed by Oncology as an outpatient. 2. Lymphadenopathy, patient is being planned for outpatient lymph node biopsy. 3. Chronic obstructive pulmonary disease, stable at this time. 4. Microcytic anemia, not ( ). 5. Gastroesophageal reflux disease. 6. Hypertension. 7. Deep venous thrombosis prophylaxis with Lovenox subcutaneous daily. Will continue to follow calcium level and further recommendations to follow from Oncology.
[2017-04-12] MEDS: LISINOPRIL 5 MG TAB PO SCH (18:01)
[2017-04-12] MEDS: ALBUTEROL NEBULIZED 2.5 MG/3 ML INHALATION PRN (19:08)
[2017-04-12] MEDS ORDERED: LORazepam 2 MG/ML SYRINGE ONE (21:00)
[2017-04-12] MEDS ORDERED: CALCITONIN INJ 200 UNIT/ML (MDV) VIAL ONE (21:00)
[2017-04-12] MEDS ORDERED: methylPREDNISolone SOD SUCCI 125 MG/2 ML VIAL ONE (21:00)
[2017-04-13] MEDS ORDERED: LORazepam 2 MG/ML SYRINGE ONE
[2017-04-13] MEDS: LORazepam 2 MG/ML SYRINGE IV PRN ×3 (04:48→23:50)
[2017-04-13] MEDS: CALCITONIN INJ 200 UNIT/ML (MDV) VIAL SUBDERMAL SCH ×2 (06:34→09:56)
[2017-04-13] MEDS: FAMOTIDINE 20 MG TAB PO SCH ×3 (06:34→19:35)
[2017-04-13] MEDS: SODIUM CHLORIDE 0.9% 1,000 ML IV SCH ×2 (06:35→18:04)
[2017-04-13] MEDS: METOPROLOL TARTRATE 25 MG TAB PO SCH ×3 (06:35→19:35)
[2017-04-13] MEDS: methylPREDNISolone SOD SUCCI 125 MG/2 ML VIAL IV SCH ×2 (06:35→08:55)
[2017-04-13] MEDS: ENOXAPARIN 30 MG/0.3 ML SYRINGE SQ SCH (08:54)
[2017-04-13] MEDS: FERROUS SULFATE 325 MG TAB PO SCH (08:57)
[2017-04-13] MEDS: THIAMINE 100 MG TAB PO SCH (08:57)
[2017-04-13] MEDS: LISINOPRIL 5 MG TAB PO SCH (08:58)
[2017-04-13] MEDS: TIOTROPIUM 18 MCG/PUFF INHALER INHALATION SCH (10:56)
[2017-04-13] MEDS: SYMBICORT 160-4.5 MCG INHALER INHALATION SCH ×2 (10:56→22:43)
[2017-04-13 12:30] LABS: Anisocytosis Moderate; Basophils % (A) 0 %; CH 21.4; CHCM 27.2; Eosinophils # (A) 0.1 k/uL (0-0.7); Eosinophils % (A) 0 %; HCT 34.5 % (39.0-53.0); HDW 3.27; HGB 9.6 gm/dL (13.0-17.5); Hypochromasia Marked; Luc # (Auto) 0.08; Luc % (Auto) 0; Lymphocytes # (A) 0.8 k/uL (1.0-4.8); Lymphocytes % (A) 4 %; MCH 21.9 pg (25.0-35.0); MCHC 27.8 g/dL (31.0-37.0); MCV 78.7 fL (80.0-100.0); Mean Platelet Volume 7.5; Microcytosis Slight; Monocytes # (A) 0.7 k/uL (0-1.0); Monocytes % (A) 3 %; Neutrophils # (A) 21.4 k/uL (1.3-7.7); Neutrophils % (A) 93 %; RBC 4.39 m/uL (4.30-5.90); WBC 23.1 k/uL (3.8-10.6); WBC (Perox) 22.42
[2017-04-13 13:17] LABS: Anion Gap 10 mmol/L; Blood Urea Nitrogen 11 mg/dL (9-20); Calcium 12.3 mg/dL (8.4-10.2); Carbon Dioxide 25 mmol/L (22-30); Chloride 117 mmol/L (98-107); Glucose 129 mg/dL (74-99); Non-African American GFR(MDRD) >60 (>60 ml/min/1.73 sqM); Potassium 3.4 mmol/L (3.5-5.1); Sodium 152 mmol/L (137-145)
--- NOTE | 2017-04-13 16:42 | XR ---
EXAMINATION TYPE: XR chest 2V DATE OF EXAM: 04/13/2017 4:36 PM COMPARISON: 04/09/2017 HISTORY: Hypoxemia TECHNIQUE: Frontal and lateral views of the chest are obtained. FINDINGS: There is blunting of the costophrenic angles. There is no gross heart failure. Heart size is normal. There are no hilar masses. Bony thorax is intact. IMPRESSION: There is some pleural reaction and atelectasis at the posterior lung bases that are incr eased compared to last exam. No heart failure.
[2017-04-13] MEDS: AMPICILLIN-SULBACTAM 3 GM in SODIUM CHLORIDE 0.9% 100 ML IVPB SCH (18:04)
[2017-04-13] MEDS ORDERED: SODIUM CHLORIDE 0.45% 1,000 ML IV SCH (21:45)
[2017-04-14] MEDS: LORazepam 2 MG/ML SYRINGE IV PRN ×7 (01:27→22:09)
[2017-04-14] MEDS: DEXTROSE 5% IN WATER 1,000 ML IV SCH ×2 (02:17→16:59)
[2017-04-14] MEDS: AMPICILLIN-SULBACTAM 3 GM in SODIUM CHLORIDE 0.9% 100 ML IVPB SCH ×5 (03:35→22:53)
[2017-04-14 08:09] LABS: Anisocytosis Moderate; Basophils % (A) 0 %; CH 21.8; CHCM 26.9; Eosinophils % (A) 0 %; HCT 36.6 % (39.0-53.0); HDW 3.29; HGB 10.2 gm/dL (13.0-17.5); Hypochromasia Marked; Luc # (Auto) 0.22; Luc % (Auto) 1; Lymphocytes # (A) 1.1 k/uL (1.0-4.8); Lymphocytes % (A) 5 %; MCH 22.5 pg (25.0-35.0); MCHC 27.7 g/dL (31.0-37.0); Mean Platelet Volume 7.5; Microcytosis Slight; Monocytes # (A) 1.1 k/uL (0-1.0); Monocytes % (A) 5 %; Neutrophils # (A) 18.7 k/uL (1.3-7.7); Neutrophils % (A) 88 %; RBC 4.52 m/uL (4.30-5.90); RDW 21.9 % (11.5-15.5); WBC 21.2 k/uL (3.8-10.6); WBC (Perox) 20.88
[2017-04-14 08:37] LABS: Anion Gap 8 mmol/L; Blood Urea Nitrogen 12 mg/dL (9-20); Calcium 12.4 mg/dL (8.4-10.2); Carbon Dioxide 31 mmol/L (22-30); Chloride 115 mmol/L (98-107); Glucose 113 mg/dL (74-99); Non-African American GFR(MDRD) >60 (>60 ml/min/1.73 sqM); Sodium 154 mmol/L (137-145)
[2017-04-14 08:42] LABS: Potassium 2.9 mmol/L (3.5-5.1)
[2017-04-14] MEDS ORDERED: Potassium Replacement Protocol 1 EACH MISC MISCELLANE PRN (08:44)
[2017-04-14] MEDS: FAMOTIDINE 20 MG TAB PO SCH ×2 (09:00→21:20)
[2017-04-14] MEDS: FERROUS SULFATE 325 MG TAB PO SCH (09:00)
[2017-04-14] MEDS: METOPROLOL TARTRATE 25 MG TAB PO SCH ×2 (09:00→21:20)
[2017-04-14] MEDS: THIAMINE 100 MG TAB PO SCH (09:00)
[2017-04-14] MEDS: ENOXAPARIN 30 MG/0.3 ML SYRINGE SQ SCH (09:00)
[2017-04-14] MEDS: LISINOPRIL 5 MG TAB PO SCH (09:00)
[2017-04-14] MEDS: TIOTROPIUM 18 MCG/PUFF INHALER INHALATION SCH (09:12)
[2017-04-14] MEDS: SYMBICORT 160-4.5 MCG INHALER INHALATION SCH ×2 (09:12→20:07)
[2017-04-14] MEDS: POTASSIUM CHLORIDE 10 MEQ, LIDOCAINE 2% INJ 10 MG in SODIUM CHLORIDE 0.9% 100 ML IV SCH ×3 (12:04→15:00)
--- NOTE | 2017-04-14 12:41 | PN ---
DATE OF SERVICE: 04/12/2017 INTERVAL HISTORY: Mr. Griffiths is a 71-year-old male who was recently diagnosed with squamous cell carcinoma of the left side of oral cavity, status post biopsy on 03/26/2017, admitted to the hospital with hypercalcemia related to malignancy and also patient had lymphadenopathy. The patient is awaiting for a biopsy for lymphadenopathy which is thought to be not related to oral cavity cancer. The patient was started on calcitonin and his calcium level is coming down at this time. Otherwise, the patient is having diarrhea today's. Denied any abdominal pain. The patient seems to be drowsy. No acute overnight issues. No nausea or vomiting. No abdominal pain. No chest pain. No short of breath. No acute overnight issues. Complete review of systems negative except for the above. Complete review of systems could not be obtained from the patient. Current medications are reviewed. PHYSICAL EXAMINATION: A 71-year-old male lying in bed awake, alert and oriented x3. He appears to be drowsy. VITALS: Blood pressure is 149/68, pulse is 102, respirations 18, temperature afebrile, pulse ox 96% on room air. HEENT: Atraumatic, normocephalic. Neck is supple. No JVD. CVS: S1, S2 heard. No murmurs, no gallop. LUNGS: Bilateral air entry is present. Decreased air entry bilateral basally. Nonlabored breathing. ABDOMEN: Soft, seems, distended. Bowel sounds are present. No palpable organomegaly. No guarding. No rigidity. SHANK CARRIER: Awake, alert, oriented x3. He appears to be drowsy. Able to move all his extremities. EXTREMITIES: No edema. Pulses palpable bilaterally by. No clubbing or cyanosis. PSYCHIATRIC: Cooperative. LABORATORY DATA: WBC 11.9, hemoglobin 8.2, platelet is 186, sodium 145, potassium 3.8, chloride 112, bicarb is 25. BUN 9, creatinine 0.8, calcium level is 11.8. IMPRESSION: 1. Hypercalcemia, improved with calcitonin. 2. Recently diagnosed squamous cell carcinoma of the left side oral cavity, status post excisional biopsy. 3. Lymphadenopathy. The patient is being planned for outpatient lymph node biopsy, which is thought to be unrelated to oral cancer. 4. Chronic obstructive pulmonary disease. 5. Microcytic anemia, not iron deficient. 6. Gastroesophageal reflux disease. 7. Hypertension. 8. Deep venous thrombosis prophylaxis with Lovenox. DISCUSSION AND PLAN: Patient will be continued on IV fluids and continue with ( ) as per Oncology recommendations. Will get Clostridium difficile toxin PCR if patient continues to have diarrhea. Will continue to follow closely. Further recommendations based on the clinical course. Abdominal x-ray showed nonspecific bowel gas pattern. Prognosis guarded.
--- NOTE | 2017-04-14 12:54 | PN ---
DATE OF SERVICE: 04/13/2017 HISTORY: Mr. Griffiths is a 71-year-old male admitted to the hospital with hypercalcemia, sent from the oncology office. 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 Calcium was improved, but today increased again. Today the patient is more drowsy. LABORATORY DATA: Reviewed, showed elevated sodium level suggestive of dehydration and IV fluids have been changed to D5 water. Patient also having worsening leukocytosis. Chest x-ray showed worsening atelectasis as well. Patient was started on antibiotics in the form of Unasyn for possible abscess of the cancerous area in the oral cavity. Otherwise the patient does not have any further diarrhea. No fever. No chills noted. Complete review of systems could not be obtained from the patient. Patient is more drowsy and lethargic. Current medications include albuterol nebulization, Unasyn, Symbicort, D5 . D5 water, Lovenox, Pepcid, Feosol, Advil, Zestril, Ativan, metoprolol, Narcan MiraLax, thiamine, Spiriva. PHYSICAL EXAMINATION: A 71-year-old male lying in the bed, awake, alert, lethargic, drowsy. VITALS: Blood pressure is 166/71, pulse 100, respirations 17, temperature afebrile, pulse ox 94% on room air. HEENT: Atraumatic, normocephalic. NECK: Supple. No JVD. CVS: S1, S2 heard. LUNGS: Bilateral air entry present, decreased air entry bilaterally. ABDOMEN: Soft, nontender. Bowel sounds are present. EVENT SECURITY OFFICER: Awake, alert. Able to move all extremities. EXTREMITIES: No edema. Pulses palpable bilaterally. No clubbing or cyanosis. PSYCHIATRY: Could not be assessed completely. LABORATORY DATA: WBC 23.1, hemoglobin 9.6, platelets are 223, sodium 152, potassium 3.4, chloride 117, bicarb is 25. BUN 11, creatinine 0.6, calcium 12.3. Chest x-ray showed there is some pleural reaction and atelectasis at the posterior lung bases, increased compared to last exam. No heart failure noted. IMPRESSION: 1. Metabolic encephalopathy secondary to dehydration, and possible infection. 2. Bilateral basilar atelectasis of the lungs. 3. Hypercalcemia, currently on calcitonin as per oncology recommendations, improved. 4. Significant leukocytosis. 5. Lymphadenopathy, planned for outpatient lymph node biopsy, thought to be unrelated to small squamous cell carcinoma. 6. Chronic obstructive pulmonary disease, stable. 7. Microcytic anemia, noniron deficiency. 8. Gastroesophageal reflux disease. 9. Hypertension. 10. Deep venous thrombosis with Lovenox. DISCUSSION AND PLAN: Patient will be continued on IV fluids, changed to D5 water and continue with antibiotics for possible infection in the oral cavity. Continue to follow closely. Prognosis is guarded. Further recommendations based on clinical course.
--- NOTE | 2017-04-14 12:57 | US ---
EXAMINATION TYPE: US axilla extremity LT DATE OF EXAM: 04/14/2017 11:25 AM COMPARISON: NONE CLINICAL HISTORY: evaluate for enlarged lymph nodes for biopsy. Hypoechoic mass with minimal blood flow seen in Left axilla measuring 5.0 x 2.2 x 4.9cm IMPRESSION: 1. Multiple large masses most typical of lymphadenopathy.
--- NOTE | 2017-04-14 12:58 | US ---
Ultrasound-guided core biopsy left axilla mass CLINICAL HISTORY: Left axilla masses FINDINGS: The procedure was explained to the patient. The risks, complications, benefits and alternatives were discussed and any questions were answered. Informed consent was obtained. Patient was placed supin e on the ultrasound table and prepped and draped in the usual sterile fashion. Utilizing a 18-gauge core needle, 3 passes were made into the requested mass in the left axilla. Patient was stable throughout the procedure. Pathology is pending. All elements of maximal barrier technique were utilized. IMPRESSION: 1. Successful ultrasound guided core biopsy left axilla mass
[2017-04-14] MEDS ORDERED: IV VANCOMYCIN PER PHARMACY 1 EACH MISC MISCELLANE PRN (14:58)
[2017-04-14] MEDS: POTASSIUM CHLORIDE ER 20 MEQ TAB.ER PO SCH ×3 (15:00→15:08)
[2017-04-14] MEDS: VANCOMYCIN 1,250 MG in SODIUM CHLORIDE 0.9% 250 ML IVPB SCH ×2 (16:59→22:53)
--- NOTE | 2017-04-14 23:28 | P.PN ---
Subjective Pt is quite sleepy, difficult to arouse. He is mildly agitated. No bleeding/f/c/ n/v Objective - Vital Signs Vital signs: Vital Signs Temp 96.9 F L 04/14/17 20:00 Pulse 115 H 04/14/17 20:00 Resp 16 04/14/17 20:00 BP 159/77 04/14/17 20:00 Pulse Ox 90 L 04/14/17 20:00 Intake & Output 04/14/17 04/14/17 04/15/17 06:59 18:59 06:59 Intake Total 1040 100 Output Total 1 Balance 1039 100 Weight 84.368 kg 84.368 kg Intake: Intake, IV Titration 1040 Amount Ampicillin-Sulbactam 3 gm 100 In Sodium Chloride 0.9% 100 ml @ 100 mls/hr IVPB Q6HR GAIL Rx#:[id number] Dextrose 5% in Water 1, 525 000 ml @ 75 mls/hr IV . [id number] GAIL Rx#:[id number] Sodium Chloride 0.9% 1, 415 000 ml @ 83 mls/hr IV . Q12H3M GAIL Rx#:[id number] Oral 100 Output: Urine/Stool Mix 1 Other: Voiding Method Diaper Diaper # Voids 2 1 2 # Bowel Movements 1 - Constitutional General appearance: Present: mild distress - EENT Eyes: Present: PERRLA ENT: Present: normal oropharynx - Respiratory Respiratory: bilateral: CTA - Cardiovascular Rhythm: regular Heart sounds: normal: S1, S2 - Gastrointestinal General gastrointestinal: Present: normal bowel sounds, soft - Integumentary Integumentary: Present: normal - Neurologic Neurologic Comment(s): Mental status as per HPI Neurologic: Present: CNII-XII intact - Musculoskeletal Musculoskeletal: Present: strength equal bilaterally - Labs CBC & Chem 7: 04/14/17 07:40 04/14/17 17:25 Labs: Abnormal Lab Results - Last 24 Hours (Table) 04/14/17 04/14/17 Range/Units 07:20 07:40 WBC 21.2 H (3.8-10.6) k/uL Hgb 10.2 L (13.0-17.5) gm/dL Hct 36.6 L (39.0-53.0) % MCH 22.5 L (25.0-35.0) pg MCHC 27.7 L (31.0-37.0) g/dL RDW 21.9 H (11.5-15.5) % Neutrophils # 18.7 H (1.3-7.7) k/uL Monocytes # 1.1 H (0-1.0) k/uL Sodium 154 H (137-145) mmol/L Potassium 2.9 L* (3.5-5.1) mmol/L Chloride 115 H (98-107) mmol/L Carbon Dioxide 31 H (22-30) mmol/L Creatinine 0.59 L (0.66-1.25) mg/dL Glucose 113 H (74-99) mg/dL Calcium 12.4 H (8.4-10.2) mg/dL Microbiology - Last 24 Hours (Table) 04/13/17 15:38 Blood Culture Gram Stain - Preliminary Blood 04/13/17 15:35 Blood Culture - Preliminary Blood Assessment and Plan (1) Hypercalcemia Narrative/Plan: This is still persistent. Continue calcitonin. We will need to use a higher dose. Contiue IV hydration. Bisphosphonate cannot be used to pre existing jaw erosion Status: Acute (2) Head and neck cancer Narrative/Plan: As noted in the initial consult, a node biopsy is planned from the left axilla to r/o 2 primaries. IR will be consulted for a core biopsy. If positive for squamous cell carcinoma, it would confirm stage IV, non curable disease Status: Acute (3) Anemia Status: Acute Plan: THe pt 's obtundation is unlikely to be due to hypercalcemia, as he was asymptomatic previously at higher ca++ levels. This is most likely due to ETOH withdrawal, and the pt is on DT precautions Case discussed in detail with daughter at the bedside, including current plan and rationale. She confirmed that the pt is a heavy , regular ETOH user at home.
[2017-04-15] MEDS: CALCITONIN INJ 200 UNIT/ML (MDV) VIAL SUBDERMAL SCH (00:26)
[2017-04-15] MEDS: DEXTROSE 5% IN WATER 1,000 ML IV SCH ×2 (00:26→13:58)
[2017-04-15] MEDS: LORazepam 2 MG/ML SYRINGE IV PRN (00:26)
[2017-04-15] MEDS: AMPICILLIN-SULBACTAM 3 GM in SODIUM CHLORIDE 0.9% 100 ML IVPB SCH ×3 (05:27→21:27)
[2017-04-15 07:03] LABS: Magnesium 1.5 mg/dL (1.6-2.3)
[2017-04-15 07:13] LABS: Potassium 2.9 mmol/L (3.5-5.1)
[2017-04-15] MEDS: VANCOMYCIN 1,250 MG in SODIUM CHLORIDE 0.9% 250 ML IVPB SCH (08:37)
[2017-04-15] MEDS: POTASSIUM CHLORIDE 10 MEQ, LIDOCAINE 2% INJ 10 MG in SODIUM CHLORIDE 0.9% 100 ML IVPB SCH ×5 (08:37→22:41)
[2017-04-15] MEDS ORDERED: LABETALOL 5 MG/ML VIAL MDV IVP STA (09:07)
[2017-04-15] MEDS ORDERED: CALCITONIN INJ 200 UNIT/ML (MDV) VIAL SQ SCH (09:42)
[2017-04-15] MEDS: ENOXAPARIN 30 MG/0.3 ML SYRINGE SQ SCH (09:50)
[2017-04-15] MEDS: CALCITONIN INJ 200 UNIT/ML (MDV) VIAL SQ SCH ×2 (09:57→21:28)
[2017-04-15] MEDS: FAMOTIDINE 20 MG TAB PO SCH ×2 (10:15→21:44)
[2017-04-15] MEDS: LISINOPRIL 5 MG TAB PO SCH (10:15)
[2017-04-15] MEDS: METOPROLOL TARTRATE 25 MG TAB PO SCH ×2 (10:15→21:45)
[2017-04-15] MEDS: FERROUS SULFATE 325 MG TAB PO SCH (10:15)
[2017-04-15] MEDS: THIAMINE 100 MG TAB PO SCH (10:16)
[2017-04-15] MEDS: SYMBICORT 160-4.5 MCG INHALER INHALATION SCH ×2 (11:11→19:52)
[2017-04-15] MEDS: TIOTROPIUM 18 MCG/PUFF INHALER INHALATION SCH (11:11)
[2017-04-15 11:44] LABS: Anisocytosis Moderate; Basophils % (A) 0 %; CH 21.6; CHCM 26.2; Eosinophils # (A) 0.1 k/uL (0-0.7); Eosinophils % (A) 1 %; HCT 37.6 % (39.0-53.0); HDW 3.14; HGB 10.3 gm/dL (13.0-17.5); Hypochromasia Marked; Luc # (Auto) 0.22; Luc % (Auto) 1; Lymphocytes # (A) 1.5 k/uL (1.0-4.8); Lymphocytes % (A) 7 %; MCH 22.5 pg (25.0-35.0); MCHC 27.3 g/dL (31.0-37.0); MCV 82.4 fL (80.0-100.0); Microcytosis Slight; Monocytes % (A) 5 %; Neutrophils # (A) 18.4 k/uL (1.3-7.7); Neutrophils % (A) 86 %; RBC 4.56 m/uL (4.30-5.90); RDW 22.8 % (11.5-15.5); WBC 21.2 k/uL (3.8-10.6); WBC (Perox) 20.99
[2017-04-15 11:58] LABS: Anion Gap 10 mmol/L; Blood Urea Nitrogen 10 mg/dL (9-20); Carbon Dioxide 26 mmol/L (22-30); Chloride 115 mmol/L (98-107); Glucose 111 mg/dL (74-99); Non-African American GFR(MDRD) >60 (>60 ml/min/1.73 sqM); Potassium 3.3 mmol/L (3.5-5.1); Sodium 151 mmol/L (137-145)
--- NOTE | 2017-04-15 12:59 | PN ---
DATE OF SERVICE: 04/14/2017 INTERVAL HISTORY: Mr. Griffiths is a 71-year-old male admitted to the hospital with hypercalcemia. Actually was sent from doctor's office. 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 Calcium level has improved with calcitonin. Otherwise patient has been agitated and has been given IV Ativan due to alcohol withdrawals. Patient also found to have gram positive bacteremia and currently start on vancomycin. Await final culture report. The patient is obtunded and could not provide any history at this time. CURRENT MEDICATIONS: Reviewed. PHYSICAL EXAMINATION: A 71-year-old male lying on the bed comfortably, current is lethargic and drowsy. HEENT: Atraumatic, normocephalic. NECK: Supple. No JVD. CVS: S1, S2 heard. No murmurs, no gallop, no rub. LUNGS: Bilateral air entry is present. No wheezing. No crackles. ABDOMEN: Soft, obese. Bowel sounds present. SHOE WORKER: No focal deficit noted. Able to move all extremities. PSYCHIATRY: Could not be assessed. EXTREMITIES: No edema. Pulses palpable bilaterally. No clubbing or cyanosis. LABORATORY DATA: WBC 21.2, hemoglobin 10.2, platelets 214, potassium is 2.9 improved to 4.9 today. IMPRESSION: 1. Metabolic encephalopathy secondary to dehydration and possible infection. 2. Gram-positive bacteremia. 3. Acute alcohol withdrawal symptoms. Continue on delirium tremens precautions. 4. Hypercalcemia, improved now. 5. Significant leukocytosis, improving. 6. Lymphadenopathy, status post biopsy, thought to be unrelated to squamous cell carcinoma. 7. Chronic obstructive pulmonary disease, stable. 8. Microcytic anemia, not iron deficiency. 9. Gastroesophageal reflux disease. 10. Hypertension. 11. Deep venous thrombosis prophylaxis with Lovenox. DISCUSSION AND PLAN: The patient will be continued on IV fluids, change to D5 water. Continue to monitor renal function and sodium level. Patient is very dehydrated. Continue with DT precautions. Follow biopsy report. Continue the current management. Continue with antibiotics. Further recommendations based on clinical course.
[2017-04-15] MEDS: MAGNESIUM SULFATE-D5W PMX 1 GM in DEXTROSE/WATER 1 100ML.BAG IVPB SCH ×2 (13:40→15:19)
[2017-04-15] MEDS: ENOXAPARIN 80 MG/0.8 ML SYRINGE SQ SCH ×2 (13:56→21:28)
--- NOTE | 2017-04-15 14:53 | US ---
EXAMINATION TYPE: US venous doppler duplex UE LT DATE OF EXAM: 04/15/2017 12:54 PM COMPARISON: NONE CLINICAL HISTORY: Swelling. SIDE PERFORMED: Left Left Arm: Positive for DVT from the subclavian v into the axilla v., basilic v also appears thrombose d. Unable to assess radial and ulnar v due to patient lack of cooperation. IMPRESSION: 1. Deep venous thrombosis left upper extremity. 2. Exam is limited due to patient cooperation.
[2017-04-15] MEDS ORDERED: cloNIDine 0.1 MG/24HR PATCH 1 PATCH PATCH TRANSDERM SCH ×2 (15:45→20:00)
--- NOTE | 2017-04-15 17:32 | P.PN ---
Subjective Principal diagnosis: hypercalcemia Pt seen briefly today, he was sleeping and difficult to arouse, snoring. Objective - Vital Signs Vital signs: Vital Signs Temp 98.8 F 04/15/17 15:20 Pulse 107 H 04/15/17 15:20 Resp 18 04/15/17 15:20 BP 151/70 04/15/17 15:20 Pulse Ox 87 L 04/15/17 15:20 Intake & Output 04/14/17 04/15/17 04/15/17 18:59 06:59 18:59 Intake Total 800 1250 Balance 800 1250 Weight 84.368 kg 81 kg Intake: Intake, IV Titration 700 1250 Amount Ampicillin-Sulbactam 3 gm 100 100 In Sodium Chloride 0.9% 100 ml @ 100 mls/hr IVPB Q6HR GAIL Rx#:[id number] Dextrose 5% in Water 1, 600 600 000 ml @ 75 mls/hr IV . [id number] GAIL Rx#:[id number] Magnesium Sulfate-D5w Pmx 100 1 gm In Dextrose/Water 1 100ml.bag @ 100 mls/hr IVPB Q1H GAIL Rx#: [id number] Potassium Chloride 10 meq 200 Lidocaine 2% Inj 10 mg In Sodium Chloride 0.9% 100 ml @ 100 mls/hr IVPB Q1HR GAIL Rx#:[id number] Vancomycin 1,250 mg In 250 Sodium Chloride 0.9% 250 ml @ 125 mls/hr IVPB Q8HR GAIL Rx#:[id number] Oral 100 0 Other: Voiding Method Diaper Diaper Diaper # Voids 1 2 1 # Bowel Movements 1 - Exam Overweight male, laying in bed on right side, respirations are even and unlabored, some snoring noted, his left arm is noted to be red, swollen, warm to touch, biopsy incision in axilla was approximated. - Labs CBC & Chem 7: 04/15/17 11:23 04/15/17 15:33 Labs: Abnormal Lab Results - Last 24 Hours (Table) 04/15/17 04/15/17 04/15/17 Range/Units 06:21 11:23 11:23 WBC 21.2 H (3.8-10.6) k/uL Hgb 10.3 L (13.0-17.5) gm/dL Hct 37.6 L (39.0-53.0) % MCH 22.5 L (25.0-35.0) pg MCHC 27.3 L (31.0-37.0) g/dL RDW 22.8 H (11.5-15.5) % Neutrophils # 18.4 H (1.3-7.7) k/uL Sodium 151 H (137-145) mmol/L Potassium 2.9 L* 3.3 L (3.5-5.1) mmol/L Chloride 115 H (98-107) mmol/L Creatinine 0.62 L (0.66-1.25) mg/dL Glucose 111 H (74-99) mg/dL Calcium 12.0 H (8.4-10.2) mg/dL Magnesium 1.5 L (1.6-2.3) mg/dL 04/15/17 Range/Units 15:33 WBC (3.8-10.6) k/uL Hgb (13.0-17.5) gm/dL Hct (39.0-53.0) % MCH (25.0-35.0) pg MCHC (31.0-37.0) g/dL RDW (11.5-15.5) % Neutrophils # (1.3-7.7) k/uL Sodium (137-145) mmol/L Potassium 2.8 L* (3.5-5.1) mmol/L Chloride (98-107) mmol/L Creatinine (0.66-1.25) mg/dL Glucose (74-99) mg/dL Calcium (8.4-10.2) mg/dL Magnesium (1.6-2.3) mg/dL Microbiology - Last 24 Hours (Table) 04/13/17 15:38 Blood Culture Gram Stain - Preliminary Blood Blood Culture - Preliminary Coagulase Negative Staph 04/13/17 15:35 Blood Culture - Preliminary Blood Assessment and Plan (1) Deep venous thrombosis of left upper extremity Narrative/Plan: Treatment dose of lovenox has been ordered Status: Acute (2) Hypercalcemia Narrative/Plan: Despite being elevated it is stable, pt is on calcitonin and continues on hydration for now. Status: Acute (3) Squamous cell lung cancer Narrative/Plan: Pathology confirms metastatic squamous cell NSCLC. Family meeting is being planned. PDL-1 testing will be requested on specimen. Status: Acute Plan: Family meeting sched for AM
[2017-04-16] MEDS: AMPICILLIN-SULBACTAM 3 GM in SODIUM CHLORIDE 0.9% 100 ML IVPB SCH ×5 (00:42→23:53)
[2017-04-16] MEDS: POTASSIUM CHLORIDE 10 MEQ, LIDOCAINE 2% INJ 10 MG in SODIUM CHLORIDE 0.9% 100 ML IVPB SCH (00:42)
[2017-04-16] MEDS: DEXTROSE 5% IN WATER 1,000 ML IV SCH ×6 (06:03→23:53)
[2017-04-16 06:44] LABS: Anion Gap 10 mmol/L; Blood Urea Nitrogen 10 mg/dL (9-20); Calcium 11.7 mg/dL (8.4-10.2); Carbon Dioxide 27 mmol/L (22-30); Chloride 116 mmol/L (98-107); Glucose 131 mg/dL (74-99); Non-African American GFR(MDRD) >60 (>60 ml/min/1.73 sqM); Sodium 153 mmol/L (137-145)
--- NOTE | 2017-04-16 07:02 | XR ---
EXAMINATION TYPE: XR chest 1V DATE OF EXAM: 04/16/2017 6:58 AM CLINICAL HISTORY: Difficulty breathing progress study. TECHNIQUE: Single AP portable upright view of the chest is obtained. COMPARISON: Chest x-ray from 3 days earlier FINDINGS: There is chronic parenchymal change without suspicious new focal airspace opacity, pleural effusion, or pneumothorax seen bilaterally. Improved inspiration is noted. Cardiac silhouette size i s within normal limits without reflect thoracic aorta. Osseous structures are intact. IMPRESSION: Improved inspiration without suspicious new acute pulmonary process.
[2017-04-16] MEDS: TIOTROPIUM 18 MCG/PUFF INHALER INHALATION SCH (07:22)
[2017-04-16] MEDS: SYMBICORT 160-4.5 MCG INHALER INHALATION SCH ×2 (07:22→21:47)
[2017-04-16 08:01] LABS: Anisocytosis Moderate; Basophils % (A) 0 %; CHCM 26.6; Eosinophils # (A) 0.3 k/uL (0-0.7); Eosinophils % (A) 2 %; HCT 37.9 % (39.0-53.0); HGB 10.6 gm/dL (13.0-17.5); Hypochromasia Marked; Luc # (Auto) 0.16; Luc % (Auto) 1; Lymphocytes # (A) 1.7 k/uL (1.0-4.8); Lymphocytes % (A) 9 %; MCH 23.1 pg (25.0-35.0); MCV 82.7 fL (80.0-100.0); Mean Platelet Volume 7.7; Microcytosis Slight; Monocytes # (A) 0.8 k/uL (0-1.0); Monocytes % (A) 4 %; Neutrophils # (A) 16.1 k/uL (1.3-7.7); Neutrophils % (A) 85 %; RBC 4.58 m/uL (4.30-5.90); RDW 23.9 % (11.5-15.5); WBC (Perox) 18.95
--- NOTE | 2017-04-16 08:21 | CT ---
EXAMINATION TYPE: CT brain wo con DATE OF EXAM: 04/16/2017 7:46 AM COMPARISON: NONE INDICATION: Altered mental changes DLP: 1047.1 mGycm, Automated exposure control for dose reduction was used. CONTRAST: None CT of the brain is performed utilizing 3 mm thick sections through the posterior fossa and 3 mm thick sections through the remaining calvarium. Study is performed within 24 hours of arrival to the hosp [facility]. No abnormal hyperdensity is present to suggest an acute intracranial hemorrhage. No mass lesion is evident. There may be a subacute lacunar infarct left basal ganglia measuring 0.9 cm in diameter. Correlate wi th the patient's clinical symptoms. Periventricular white matter hypodensity is present, most likely on the basis of chronic white matter ischemic changes. Ventricles and sulci are mildly prominent for the patient age. Paranasal sinuses and mastoid air cells within the [id number] are clear. IMPRESSIONS: 1. Atrophy with periventricular white matter ischemic changes. 2. Clinical correlation recommended for subacute left basal ganglion lacunar infarct.
[2017-04-16] MEDS: POTASSIUM CHLORIDE 10 MEQ, LIDOCAINE 2% INJ 10 MG in SODIUM CHLORIDE 0.9% 100 ML IV SCH ×4 (10:25→18:56)
[2017-04-16] MEDS: ENOXAPARIN 80 MG/0.8 ML SYRINGE SQ SCH ×2 (10:25→23:52)
[2017-04-16] MEDS: FAMOTIDINE 20 MG TAB PO SCH ×2 (10:29→23:52)
[2017-04-16] MEDS: THIAMINE 100 MG TAB PO SCH (10:30)
[2017-04-16] MEDS: FERROUS SULFATE 325 MG TAB PO SCH (10:30)
[2017-04-16] MEDS: METOPROLOL TARTRATE 25 MG TAB PO SCH ×2 (10:30→23:52)
[2017-04-16] MEDS: LISINOPRIL 5 MG TAB PO SCH (10:30)
--- NOTE | 2017-04-16 11:04 | PN ---
DATE OF SERVICE: 04/15/2017 INTERVAL HISTORY: Mr. Griffiths is a 71-year-old male who was admitted to hospital with hypercalcemia. 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 Patient was also found to have left-sided lymphadenopathy and ( ) is related to hypercalcemia. This is unusual for head and neck cancer, therefore patient underwent biopsy of the left axillary region and with pathology report showing non-small cell lung cancer which is the primary at this time. Otherwise, patient is currently lying in the bed, non-arousable and snoring, saturating well on room air. Patient does have serial hypokalemia and amylase level is not elevated. Patient is also being treated for alcohol withdrawal symptoms with Ativan IV. Blood pressure uncontrolled today and patient is currently on p.o. and continued on IV fluids and Catapres patch has been applied to control blood pressure. Patient cannot provide any history now. Patient is having metastatic lung cancer. Complete review of systems cannot be obtained at this time. CURRENT MEDICATIONS: Reviewed. PHYSICAL EXAMINATION: A 71-year-old male, lying in the bed, unarousable and snoring. VITALS: Blood pressure is 142/61, pulse is 117, respirations 20, temperature afebrile, pulse ox 90% on room air. HEENT: Atraumatic, normocephalic. CVS: S1, S2 heard. No murmurs. No gallops. LUNGS: Bilateral air entry is present, rhonchi bilaterally, unlabored breathing. ABDOMEN: Soft, obese. Bowel sounds present. 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 EXTREMITIES: Trace edema, pulses palpable bilaterally. No clubbing or cyanosis. PSYCHIATRY: Could not be obtained. LABORATORY DATA: WBC is 21.2, hemoglobin 10.3, platelets are 167. Sodium 131, potassium 3.3, chloride 115, bicarbonate 26. BUN 10, creatinine 0.62, calcium 12.0. IMPRESSION: 1. Brain metastases. 2. Non-small cell lung cancer as per left axillary lymph node biopsy done 2 days ago. 3. Diaphoresis bacteremia, vancomycin has been discontinued. 4. Acute alcohol withdrawal symptoms and delirium tremens. Patient is being continued on Ativan. 5. Malignancy-related hypercalcemia. 6. Significant leukocytosis. 7. Lymphadenopathy. 8. Chronic obstructive pulmonary disease. 9. Microcytic anemia, non-iron deficient. 10. Gastroesophageal reflux disease. 11. Hypertension. 12. Hypertension, uncontrolled. 13. Deep venous thrombosis prophylaxis with Lovenox. 14. Left upper extremity deep venous thrombosis, diagnosed. DISCUSSION AND PLAN: Patient will be continued on IV fluids, continue with the antibiotics and patient was found to have left upper extremity swelling and ultrasound showed DVT. Patient was started on Lovenox now. Continue with the current management, prognosis is poor. Lives with the family and discussed with the family. Recommendations based on the clinical course.
[2017-04-16] MEDS: CALCITONIN INJ 200 UNIT/ML (MDV) VIAL SQ SCH ×2 (11:08→23:52)
[2017-04-16] MEDS: ASPIRIN 300 MG SUPP RECTAL SCH (13:05)
--- NOTE | 2017-04-16 17:22 | P.PN ---
Subjective This is a 71-year-old gentleman that was admitted to the hospital with some changes in mental status. Patient was noted to have hypercalcemia on admission. Patient apparently has had a squamous cell cancer of the left-sided oral cavity. Patient was noted to have left-sided lymphadenopathy on this admission has underwent a biopsy from the axillary region. During this. Patient apparently also underwent a alcohol withdrawal. Patient was noted to have blood pressure issues likely secondary to alcohol withdrawal. Patient was noted to have metastatic lung cancer positive on lymph node biopsy. Patient was also noted to have some concern for metastases to the brain. Patient was seen by our oncologist on staff here recommended further testing to attempt a targeted chemotherapy with stage IV lung CA. Comfort measures were also apparently offered. Today on 04/16/2017 Patient is not arousable currently on 2 L a supplement oxygen and has been this way in the last 24 hours according to the picking crew supervisor was around however no changes were reported at that time as well Objective - Vital Signs Vital signs: Vital Signs Temp 97.4 F L 04/16/17 09:32 Pulse 120 H 04/16/17 11:40 Resp 18 04/16/17 11:40 BP 155/67 04/16/17 11:40 Pulse Ox 90 L 04/16/17 11:40 Intake & Output 04/15/17 04/16/17 04/16/17 18:59 06:59 18:59 Intake Total 1250 1425 Output Total 400 Balance 850 1425 Weight 67.5 kg Intake: IV 1425 Ampicillin-Sulbactam 3 gm 300 In Sodium Chloride 0.9% 100 ml @ 100 mls/hr IVPB Q6HR GAIL Rx#:[id number] Dextrose 5% in Water 1, 825 000 ml @ 75 mls/hr IV . [id number] GAIL Rx#:[id number] Potassium Chloride 10 meq 300 Lidocaine 2% Inj 10 mg In Sodium Chloride 0.9% 100 ml @ 100 mls/hr IVPB Q1HR GAIL Rx#:[id number] Intake, IV Titration 1250 Amount Ampicillin-Sulbactam 3 gm 100 In Sodium Chloride 0.9% 100 ml @ 100 mls/hr IVPB Q6HR GAIL Rx#:[id number] Dextrose 5% in Water 1, 600 000 ml @ 75 mls/hr IV . [id number] GAIL Rx#:[id number] Magnesium Sulfate-D5w Pmx 100 1 gm In Dextrose/Water 1 100ml.bag @ 100 mls/hr IVPB Q1H GAIL Rx#: [id number] Potassium Chloride 10 meq 200 Lidocaine 2% Inj 10 mg In Sodium Chloride 0.9% 100 ml @ 100 mls/hr IVPB Q1HR GAIL Rx#:[id number] Vancomycin 1,250 mg In 250 Sodium Chloride 0.9% 250 ml @ 125 mls/hr IVPB Q8HR GAIL Rx#:[id number] Oral 0 Output: Urine 400 Other: Voiding Method Diaper Diaper # Voids 2 1 1 # Bowel Movements 0 - Exam Appearance lethargic Lungs coarse breath sounds no rhonchi or wheezing Heart S1-S2 heard no murmurs or patient Abdomen is soft nontender organomegaly Patient is lethargic neuro exam is deferred Lower ext no edema noted - Labs CBC & Chem 7: 04/16/17 06:11 04/16/17 15:06 Labs: Abnormal Lab Results - Last 24 Hours (Table) 04/16/17 04/16/17 04/16/17 Range/Units 06:11 06:11 15:06 WBC 19.0 H (3.8-10.6) k/uL Hgb 10.6 L (13.0-17.5) gm/dL Hct 37.9 L (39.0-53.0) % MCH 23.1 L (25.0-35.0) pg MCHC 28.0 L (31.0-37.0) g/dL RDW 23.9 H (11.5-15.5) % Plt Count 136 L (150-450) k/uL Neutrophils # 16.1 H (1.3-7.7) k/uL Sodium 153 H (137-145) mmol/L Potassium 3.0 L* 3.1 L (3.5-5.1) mmol/L Chloride 116 H (98-107) mmol/L Glucose 131 H (74-99) mg/dL Calcium 11.7 H (8.4-10.2) mg/dL Microbiology - Last 24 Hours (Table) 04/15/17 11:23 Blood Culture - Preliminary Blood No Growth after 24 hours Assessment and Plan Plan: 1 metastatic non-small lung cancer #2 bacteremia which is likely contamination #3 acute alcohol withdrawal #4 acute encephalopathy likely combination of toxic and metabolic #5 malignancy-related hyperglycemia #6 COPD per graph #7 hypertension #8 venous some embolism in the left upper extremity Plan Continue with and to correlation at this time await MRI results. On the computed tomography scan a concern for his stroke was reviewed however will await MRI results this could just be a metastatic lesion from the lung cancer We'll hold a family meeting in regards to patient's prognosis Continue ongoing care at this time if positive need to consider seizure prophylaxis
--- NOTE | 2017-04-16 17:36 | MR ---
EXAMINATION TYPE: MR brain wo/w con DATE OF EXAM: 04/16/2017 5:08 PM COMPARISON: NONE HISTORY: Possible Mets CONTRAST: Patient received 13 mL intravenous MultiHance gadolinium contrast. Multiplanar and multispin-echo imaging of the brain was performed . Pre and post contrast enhanced i mages are obtained. The ventricles, basal cisterns and sulci overlying the cerebral convexities are mildly enlarged. There is evidence of mild to moderate periventricular white matter ischemic demyelination. Remote deep white matter insults are also noted. No acute edema is seen on diffusion weighted imaging. There is no evidence for midline shift or mass effect. Acute intracranial hemorrhage or extra-axial collection is not evident. No enhancing lesions are seen. Fluid within the bilateral mastoid air cells. IMPRESSION: Age-related atrophic and chronic small vessel ischemic change. No acute intracranial process at this time. No enhancing lesions are seen.
--- NOTE | 2017-04-16 20:31 | P.PN ---
Subjective Pt remains quite obtunded with increased but stable respiratory rate. He is able to move all 4 extremities. Objective - Vital Signs Vital signs: Vital Signs Temp 97 F L 04/16/17 17:15 Pulse 110 H 04/16/17 17:15 Resp 18 04/16/17 17:15 BP 115/70 04/16/17 17:15 Pulse Ox 96 04/16/17 17:15 Intake & Output 04/16/17 04/16/17 04/17/17 06:59 18:59 06:59 Intake Total 1425 700 Balance 1425 700 Weight 67.5 kg Intake: IV 1425 700 Ampicillin-Sulbactam 3 gm 300 100 In Sodium Chloride 0.9% 100 ml @ 100 mls/hr IVPB Q6HR GAIL Rx#:[id number] Dextrose 5% in Water 1, 825 600 000 ml @ 125 mls/hr IV . Q8H GAIL Rx#:[id number] Potassium Chloride 10 meq 300 Lidocaine 2% Inj 10 mg In Sodium Chloride 0.9% 100 ml @ 100 mls/hr IVPB Q1HR GAIL Rx#:[id number] Other: Voiding Method Diaper Diaper # Voids 1 3 - Exam obtunded - Constitutional General appearance: Present: mild distress - EENT Eyes: Present: PERRLA - Respiratory Respiratory: bilateral: diminished - Cardiovascular Rhythm: regular Heart sounds: normal: S1, S2 - Gastrointestinal General gastrointestinal: Present: normal bowel sounds, soft - Integumentary Integumentary: Present: normal - Musculoskeletal Musculoskeletal: Present: strength equal bilaterally - Psychiatric Psychiatric Comment(s): obtunded - Labs CBC & Chem 7: 04/16/17 06:11 04/16/17 15:06 Labs: Abnormal Lab Results - Last 24 Hours (Table) 04/16/17 04/16/17 04/16/17 Range/Units 06:11 06:11 15:06 WBC 19.0 H (3.8-10.6) k/uL Hgb 10.6 L (13.0-17.5) gm/dL Hct 37.9 L (39.0-53.0) % MCH 23.1 L (25.0-35.0) pg MCHC 28.0 L (31.0-37.0) g/dL RDW 23.9 H (11.5-15.5) % Plt Count 136 L (150-450) k/uL Neutrophils # 16.1 H (1.3-7.7) k/uL Sodium 153 H (137-145) mmol/L Potassium 3.0 L* 3.1 L (3.5-5.1) mmol/L Chloride 116 H (98-107) mmol/L Glucose 131 H (74-99) mg/dL Calcium 11.7 H (8.4-10.2) mg/dL Microbiology - Last 24 Hours (Table) 04/15/17 11:23 Blood Culture - Preliminary Blood No Growth after 24 hours Assessment and Plan (1) Hypercalcemia Narrative/Plan: This is slowly starting to improve with higher dose calcitonin and continuing hydration Status: Acute (2) Head and neck cancer Narrative/Plan: The pt 's axillary node biopsy revealed squamous cell cancer. This confirms metastatic /stage IV head and neck cancer. The pathology and implications were discussed in detail with his and multiple family members. His cancer is not curable, and the objective of treatment would be prolongation of life and palliation of symptoms. The prognosis with and without treatment, as well as comfort care were also discussed. The std of care would be chemo ( usually a [place] agent) in the 1st line. He is not a candidate for treatment immediately. If he recovers from his acute condition in a satisfactory manner, treatment can be considered. However he would potentially be at higher risk for side effects, due to his other medical problems, as well as ongoing hevay ETOH use, which the family acknowledges is likely to continue Immunotherapy with EGFR inhibitor or PD-1 inhibitors could potentially be better tolerated, but these are approved only after 1st line chemo , and thus coverage for 1st line use could be a significant problem. The family will consider further and then make their decision Status: Acute (3) Anemia Status: Acute Plan: Defer to the admitting service for management of ongoing DTs. Brain imaging has been ordered to r/o mets or other pathology
--- NOTE | 2017-04-16 22:19 | CONS ---
DATE OF CONSULTATION: 04/16/2017 CHIEF COMPLAINT: Altered mental status. HISTORY OF PRESENT ILLNESS: The patient is a 71-year-old male who is being evaluated by the neurology service per the request of Dr. Sterling for altered mental status. The patient was brought into [facility] Room on 04/09/17 due to abnormal outpatient laboratory workup results. 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 He was treating with Dr. Lares and a metabolic profile was ordered which showed that he had significant hypercalcemia of greater than 13. He was admitted for further workup and management, and Oncology was consulted. Over the past 2 days, the patient has been less responsive. A CT scan of the brain was done yesterday which showed evidence of subacute ischemia involving the left basal ganglia. There was also generalized atrophy and small-vessel ischemic changes. I did order an MRI of the brain with and without contrast, and the study was done today which showed no evidence of any acute ischemia. There were old ischemic changes. No abnormal enhancement was seen. His laboratory workup from today was reviewed and his CBC showed leukocytosis at 19.0, anemia with a hemoglobin of 10.6 and hematocrit of 37%, and thrombocytopenia at 136,000. His comprehensive metabolic profile showed hypernatremia at 153, hypokalemia at 3.0, and hypercalcemia at 11.7. His serum ammonia level was normal. At the time of my evaluation, the patient is lying in his bed and appears to be having labored breathing. He does not respond to any verbal stimuli. No seizure-like activity has been described. PAST MEDICAL HISTORY: 1. 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 2. Chronic obstructive pulmonary disease. 3. Gastroesophageal reflux disease. 4. Hypertension. 5. Past history of malaria. 6. History of bowel resection. SOCIAL HISTORY: The patient is a former smoker. He does drink alcohol daily, up to 24 beers per day and occasional vodka consumption. There is no history of any IV drug use. FAMILY HISTORY: Positive for chronic obstructive pulmonary disease. HOME MEDICATIONS: Reviewed in the chart. ALLERGIES: NO KNOWN DRUG ALLERGIES. REVIEW OF SYSTEMS: Unable to obtain, as the patient is unresponsive. PHYSICAL EXAM: Vital signs show a temperature of 97.0, pulse 110, respiration 18, blood pressure 115/70. GENERAL APPEARANCE: The patient is a well-developed elderly male who appears to be having labored breathing and is unresponsive to verbal stimuli. HEENT: Normocephalic, atraumatic. No obvious facial asymmetry is seen. Pupils are equally round and reactive to light. Neck is supple, with no masses felt. CARDIOVASCULAR: Regular rate and rhythm. ABDOMEN: Nontender, nondistended. Extremities showed significant edema in the left upper extremity. NEUROLOGICAL EXAM: The patient is unresponsive to verbal stimuli. He does withdraw all 4 extremities to painful stimuli. Brainstem reflexes are intact. Plantar reflex showed silent toes bilaterally. Deep tendon reflexes were 2 to 3+ and symmetrical except in the left upper extremity, likely due to the significant edema. No obvious facial asymmetry is seen. No seizure-like activity is noticed. IMPRESSION: 1. Altered mental status. 2. Likely severe multifactorial encephalopathy. 3. Electrolyte imbalance. 4. Hypercalcemia. 5. Hypernatremia. 6. Hypokalemia. 7. History of alcohol abuse. 8. Chronic obstructive pulmonary disease. 9. Leukocytosis. 10. Anemia. 11. Thrombocytopenia. RECOMMENDATIONS: The patient is unresponsive on my neurological examination to verbal stimuli. He does withdraw his extremities to painful stimuli. The initial CT scan of the brain showed some concern for a subacute ischemic stroke involving the left basal ganglia. I did review the MRI of the brain with and without contrast, which showed no evidence of any acute ischemia, but he does have significant chronic ischemic changes. No abnormal enhancement is seen, and there is no evidence of any brain metastasis at this time. No edema is noticed on his MRI of the brain. The patient's mental status changes are felt to be more related to his severe hypercalcemia and hypernatremia. He is likely also having encephalopathy due to alcohol withdrawals. An EEG will be ordered to rule out any non-convulsive seizures, although this is less likely. Given his findings and given his neoplastic comorbidities, prognosis is overall quite poor. According to the nursing staff, Oncology will be meeting with the family tomorrow to make a decision on possible comfort care measures. Continue supportive care until then and continue to monitor his oxygenation, as his breathing is quite labored. I will continue to follow with you. Further recommendations to follow. Thank you for allowing me to participate in the care of your patient. If you have any questions, please feel free to contact me.
[2017-04-17] MEDS: POTASSIUM CHLORIDE 10 MEQ, LIDOCAINE 2% INJ 10 MG in SODIUM CHLORIDE 0.9% 100 ML IV SCH ×6 (01:45→22:28)
[2017-04-17] MEDS: AMPICILLIN-SULBACTAM 3 GM in SODIUM CHLORIDE 0.9% 100 ML IVPB SCH ×3 (06:05→18:12)
[2017-04-17] MEDS: DEXTROSE 5% IN WATER 1,000 ML IV SCH ×3 (06:05→21:04)
[2017-04-17 06:27] LABS: Anisocytosis Marked; Basophils % (A) 0 %; CH 22.5; CHCM 26.8; Eosinophils # (A) 0.8 k/uL (0-0.7); Eosinophils % (A) 4 %; HCT 37.6 % (39.0-53.0); HDW 3.27; HGB 10.5 gm/dL (13.0-17.5); Hypochromasia Marked; Luc # (Auto) 0.22; Luc % (Auto) 1; Lymphocytes # (A) 1.9 k/uL (1.0-4.8); Lymphocytes % (A) 10 %; MCH 23.2 pg (25.0-35.0); MCHC 27.8 g/dL (31.0-37.0); MCV 83.5 fL (80.0-100.0); Macrocytosis Slight; Mean Platelet Volume 7.7; Microcytosis Slight; Monocytes # (A) 0.9 k/uL (0-1.0); Monocytes % (A) 5 %; Neutrophils # (A) 15.8 k/uL (1.3-7.7); Neutrophils % (A) 80 %; RDW 24.8 % (11.5-15.5); WBC 19.7 k/uL (3.8-10.6); WBC (Perox) 20.19
[2017-04-17 06:47] LABS: ALT 39 U/L (21-72); AST 53 U/L (17-59); Alkaline Phosphatase 105 U/L (38-126); Anion Gap 8 mmol/L; Blood Urea Nitrogen 11 mg/dL (9-20); Calcium 11.6 mg/dL (8.4-10.2); Carbon Dioxide 30 mmol/L (22-30); Chloride 115 mmol/L (98-107); Glucose 127 mg/dL (74-99); Non-African American GFR(MDRD) >60 (>60 ml/min/1.73 sqM); Potassium 3.3 mmol/L (3.5-5.1); Sodium 153 mmol/L (137-145); Total Bilirubin 1.9 mg/dL (0.2-1.3); Total Protein 6.5 g/dL (6.3-8.2)
[2017-04-17 07:52] LABS: Manual Review Performed; Polychromasia Present
[2017-04-17] MEDS: SYMBICORT 160-4.5 MCG INHALER INHALATION SCH ×2 (08:09→20:47)
[2017-04-17] MEDS: TIOTROPIUM 18 MCG/PUFF INHALER INHALATION SCH (08:10)
[2017-04-17] MEDS: LISINOPRIL 5 MG TAB PO SCH (08:15)
[2017-04-17] MEDS: METOPROLOL TARTRATE 25 MG TAB PO SCH (08:15)
[2017-04-17] MEDS: THIAMINE 100 MG TAB PO SCH (08:15)
[2017-04-17] MEDS: FERROUS SULFATE 325 MG TAB PO SCH (08:15)
[2017-04-17] MEDS: FAMOTIDINE 20 MG TAB PO SCH ×2 (08:15→21:01)
[2017-04-17] MEDS: ENOXAPARIN 80 MG/0.8 ML SYRINGE SQ SCH ×2 (09:18→21:02)
[2017-04-17] MEDS: ASPIRIN 300 MG SUPP RECTAL SCH (09:18)
[2017-04-17] MEDS: CALCITONIN INJ 200 UNIT/ML (MDV) VIAL SQ SCH (09:18)
[2017-04-17 10:08] VITALS: BMI 22.9
--- NOTE | 2017-04-17 13:02 | P.PN ---
Subjective This is a 71-year-old gentleman that was admitted to the hospital with some changes in mental status. Patient was noted to have hypercalcemia on admission. Patient apparently has had a squamous cell cancer of the left-sided oral cavity. Patient was noted to have left-sided lymphadenopathy on this admission has underwent a biopsy from the axillary region. During this. Patient apparently also underwent a alcohol withdrawal. Patient was noted to have blood pressure issues likely secondary to alcohol withdrawal. Patient was noted to have metastatic lung cancer positive on lymph node biopsy. Patient was also noted to have some concern for metastases to the brain. Patient was seen by our oncologist on staff here recommended further testing to attempt a targeted chemotherapy with stage IV lung CA. Comfort measures were also apparently offered. Today on 04/16/2017 Patient is not arousable currently on 2 L a supplement oxygen and has been this way in the last 24 hours according to the burial vault setter was around however no changes were reported at that time as well 04/17/2017 Is awake today is able to answer some questions family was at bedside states that he is improved slightly Denies having any additional complaints No overnight events reported Objective - Vital Signs Vital signs: Vital Signs Temp 97.1 F L 04/17/17 08:13 Pulse 104 H 04/17/17 11:20 Resp 18 04/17/17 11:20 BP 133/66 04/17/17 11:20 Pulse Ox 94 L 04/17/17 11:20 Intake & Output 04/16/17 04/17/17 04/17/17 18:59 06:59 18:59 Intake Total 700 1675 Balance 700 1675 Weight 70.5 kg 70.5 kg Intake: IV 700 1475 Ampicillin-Sulbactam 3 gm 100 100 In Sodium Chloride 0.9% 100 ml @ 100 mls/hr IVPB Q6HR GAIL Rx#:[id number] Dextrose 5% in Water 1, 600 1375 000 ml @ 125 mls/hr IV . Q8H GAIL Rx#:[id number] Intake, IV Titration 200 Amount Potassium Chloride 10 meq 200 Lidocaine 2% Inj 10 mg In Sodium Chloride 0.9% 100 ml @ 100 mls/hr IV Q1HR GAIL Rx#:[id number] Other: Voiding Method Diaper Diaper Diaper # Voids 3 1 - Exam Appearance more arousable. Lungs coarse breath sounds however this is from the upper airways no rhonchi or wheezing Heart S1-S2 heard no murmurs Abdomen is soft nontender organomegaly Neuro exam patient is moving all 4 extremities Lower ext no edema noted - Labs CBC & Chem 7: 04/17/17 05:54 04/17/17 05:54 Labs: Abnormal Lab Results - Last 24 Hours (Table) 04/16/17 04/16/17 04/17/17 Range/Units 15:06 21:01 05:54 WBC 19.7 H (3.8-10.6) k/uL Hgb 10.5 L (13.0-17.5) gm/dL Hct 37.6 L (39.0-53.0) % MCH 23.2 L (25.0-35.0) pg MCHC 27.8 L (31.0-37.0) g/dL RDW 24.8 H (11.5-15.5) % Plt Count 116 L (150-450) k/uL Neutrophils # 15.8 H (1.3-7.7) k/uL Eosinophils # 0.8 H (0-0.7) k/uL Sodium (137-145) mmol/L Potassium 3.1 L 3.2 L (3.5-5.1) mmol/L Chloride (98-107) mmol/L Glucose (74-99) mg/dL Calcium (8.4-10.2) mg/dL Total Bilirubin (0.2-1.3) mg/dL Albumin (3.5-5.0) g/dL 04/17/17 Range/Units 05:54 WBC (3.8-10.6) k/uL Hgb (13.0-17.5) gm/dL Hct (39.0-53.0) % MCH (25.0-35.0) pg MCHC (31.0-37.0) g/dL RDW (11.5-15.5) % Plt Count (150-450) k/uL Neutrophils # (1.3-7.7) k/uL Eosinophils # (0-0.7) k/uL Sodium 153 H (137-145) mmol/L Potassium 3.3 L (3.5-5.1) mmol/L Chloride 115 H (98-107) mmol/L Glucose 127 H (74-99) mg/dL Calcium 11.6 H (8.4-10.2) mg/dL Total Bilirubin 1.9 H (0.2-1.3) mg/dL Albumin 3.2 L (3.5-5.0) g/dL Microbiology - Last 24 Hours (Table) 04/13/17 15:38 Blood Culture Gram Stain - Final Blood Blood Culture - Final Staph capitis SS capitis 04/15/17 11:23 Blood Culture - Preliminary Blood No Growth after 24 hours Assessment and Plan Plan: 1 metastatic non-small lung cancer #2 bacteremia which is likely contamination #3 acute alcohol withdrawal #4 acute encephalopathy likely combination of toxic and metabolic #5 malignancy-related hyperglycemia #6 COPD per graph #7 hypertension #8 venous some embolism in the left upper extremity Plan Radiographic imaging is reviewed. Continue with the current care. We'll discontinue all narcotics judicious use of narcotics is discussed with the RN I did discuss goals of care with the family patient will be at DO NOT RESUSCITATE according to the family it appears with the clinical improvement they're leaning towards keeping the patient comfortable. They do understand the therapy offered by oncology as well. At this time patient is nothing by mouth for 6 days we'll start the patient on tube feeding via NG tube Aspiration precautions will be strictly enforced continue with D5W at 125 mL per hour we'll start free water at 200 mL every 6 hours via tube feeding as well
--- NOTE | 2017-04-17 15:49 | P.PN ---
Subjective Principal diagnosis: Patient is a 71-year-old male who is being followed by the neurology service for altered mental status. 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 He treats with Dr. Connolly and was found to have significant hypercalcemia of greater than 13. Oncology is following. Patient will had been becoming less responsive and a CT scan of the brain was done which showed evidence of subacute ischemia involving the left basal ganglia. An MRI of the brain with and without contrast was done which showed no evidence of any acute ischemia. There were however old ischemic changes. There was no abnormal enhancement on the MRI. At the time of my evaluation, patient is resting comfortably in bed and attempts to follow commands. No seizure-like activity has been reported. Objective - Vital Signs Vital signs: Vital Signs Temp 97.1 F L 04/17/17 08:13 Pulse 104 H 04/17/17 11:20 Resp 18 04/17/17 11:20 BP 133/66 04/17/17 11:20 Pulse Ox 94 L 04/17/17 11:20 Intake & Output 04/16/17 04/17/17 04/17/17 18:59 06:59 18:59 Intake Total 700 1675 Balance 700 1675 Weight 70.5 kg 70.5 kg Intake: IV 700 1475 Ampicillin-Sulbactam 3 gm 100 100 In Sodium Chloride 0.9% 100 ml @ 100 mls/hr IVPB Q6HR GAIL Rx#:[id number] Dextrose 5% in Water 1, 600 1375 000 ml @ 125 mls/hr IV . Q8H GAIL Rx#:[id number] Intake, IV Titration 200 Amount Potassium Chloride 10 meq 200 Lidocaine 2% Inj 10 mg In Sodium Chloride 0.9% 100 ml @ 100 mls/hr IV Q1HR GAIL Rx#:[id number] Other: Voiding Method Diaper Diaper Diaper # Voids 3 1 - Exam PHYSICAL EXAM: GENERAL APPEARANCE: Patient is a male who appears to be in no acute distress. HEENT: Normocephalic, atraumatic, no obvious facial asymmetry is seen. Neck is supple with no masses felt. CARDIOVASCULAR: Regular rate and rhythm. ABDOMEN: Nontender, nondistended. EXTREMITIES: Shows significant edema in the left upper extremity. NEUROLOGICAL EXAM: Patient does respond when name is called. Patient attempts to communicate but speech is garbled. Patient attempts to follow commands. Patient tries to raise his arms when asked to show his thumb. Patient does move all 4 extremities. No obvious lateralizing weakness is seen. No obvious facial asymmetry is noted. No tremors or seizure-like activity is seen. - Labs CBC & Chem 7: 04/17/17 05:54 04/17/17 13:00 Labs: Abnormal Lab Results - Last 24 Hours (Table) 04/16/17 04/16/17 04/17/17 Range/Units 15:06 21:01 05:54 WBC 19.7 H (3.8-10.6) k/uL Hgb 10.5 L (13.0-17.5) gm/dL Hct 37.6 L (39.0-53.0) % MCH 23.2 L (25.0-35.0) pg MCHC 27.8 L (31.0-37.0) g/dL RDW 24.8 H (11.5-15.5) % Plt Count 116 L (150-450) k/uL Neutrophils # 15.8 H (1.3-7.7) k/uL Eosinophils # 0.8 H (0-0.7) k/uL Sodium (137-145) mmol/L Potassium 3.1 L 3.2 L (3.5-5.1) mmol/L Chloride (98-107) mmol/L Glucose (74-99) mg/dL Calcium (8.4-10.2) mg/dL Total Bilirubin (0.2-1.3) mg/dL Albumin (3.5-5.0) g/dL 04/17/17 Range/Units 05:54 WBC (3.8-10.6) k/uL Hgb (13.0-17.5) gm/dL Hct (39.0-53.0) % MCH (25.0-35.0) pg MCHC (31.0-37.0) g/dL RDW (11.5-15.5) % Plt Count (150-450) k/uL Neutrophils # (1.3-7.7) k/uL Eosinophils # (0-0.7) k/uL Sodium 153 H (137-145) mmol/L Potassium 3.3 L (3.5-5.1) mmol/L Chloride 115 H (98-107) mmol/L Glucose 127 H (74-99) mg/dL Calcium 11.6 H (8.4-10.2) mg/dL Total Bilirubin 1.9 H (0.2-1.3) mg/dL Albumin 3.2 L (3.5-5.0) g/dL Microbiology - Last 24 Hours (Table) 04/15/17 11:23 Blood Culture - Preliminary Blood No Growth after 48 hours 04/13/17 15:38 Blood Culture Gram Stain - Final Blood Blood Culture - Final Staph capitis SS capitis Assessment and Plan (1) Head and neck cancer Status: Acute (2) Squamous cell lung cancer Status: Acute (3) Acute exacerbation of chronic obstructive pulmonary disease (COPD) Status: Acute (4) Anemia Status: Acute Plan: Recommendations: Patient is somewhat more responsive today as compared to yesterday. As you recall, CT scan of the brain did show some findings that were concerning for subacute lacunar infarct left basal ganglia. Follow-up MRI was done with and without contrast which showed no evidence of any acute ischemia, but it did show significant chronic ischemic changes. There is no abnormal enhancement to suggest any brain metastasis. Patient's altered mental status is most likely due to hypercalcemia and hypernatremia. Patient is also likely to have encephalopathy due alcohol withdrawal. EEG has been ordered and has not yet been performed. Seizure activity is thought to be less likely reason for his altered mental status. Given patient's neoplastic comorbidities , prognosis is overall quite poor. Continue current medical management. I will continue to follow with you. Further recommendations to follow. I performed an examination of the patient and discussed the management with the LETTER SORTING MACHINE OPERATOR. I have reviewed the LETTER SORTING MACHINE OPERATOR notes and agree with the findings and plan of care.
[2017-04-17] MEDS: POTASSIUM CHLORIDE 10 MEQ in WATER FOR INJECTION 1 100ML.BAG IVPB SCH ×2 (15:58→17:04)
[2017-04-17] MEDS: METOPROLOL TARTRATE 50 MG TAB PO SCH ×2 (17:03→21:01)
[2017-04-17] MEDS: CALCITONIN INJ 200 UNIT/ML (MDV) VIAL SUBDERMAL SCH (21:46)
[2017-04-18] MEDS: SODIUM CHLORIDE 0.9% 1,000 ML IV SCH (00:24)
[2017-04-18] MEDS: CALCITONIN INJ 200 UNIT/ML (MDV) VIAL SUBDERMAL SCH ×3 (00:26→22:58)
[2017-04-18] MEDS: AMPICILLIN-SULBACTAM 3 GM in SODIUM CHLORIDE 0.9% 100 ML IVPB SCH ×5 (00:38→22:58)
[2017-04-18] MEDS ORDERED: Potassium Replacement Protocol 1 EACH MISC MISCELLANE PRN (01:02)
[2017-04-18] MEDS: POTASSIUM CHLORIDE 10 MEQ, LIDOCAINE 2% INJ 10 MG in SODIUM CHLORIDE 0.9% 100 ML IV SCH ×4 (01:15→06:29)
[2017-04-18 04:36] LABS: Anisocytosis Marked; Basophils % (A) 0 %; CH 22.6; CHCM 26.2; Eosinophils # (A) 0.7 k/uL (0-0.7); Eosinophils % (A) 4 %; HCT 39.1 % (39.0-53.0); HDW 3.09; HGB 10.7 gm/dL (13.0-17.5); Hypochromasia Marked; Luc # (Auto) 0.22; Luc % (Auto) 1; Lymphocytes # (A) 1.5 k/uL (1.0-4.8); Lymphocytes % (A) 8 %; MCH 23.5 pg (25.0-35.0); MCHC 27.3 g/dL (31.0-37.0); Macrocytosis Slight; Mean Platelet Volume 7.5; Microcytosis Slight; Monocytes # (A) 0.7 k/uL (0-1.0); Monocytes % (A) 4 %; Neutrophils # (A) 15.1 k/uL (1.3-7.7); Neutrophils % (A) 83 %; RBC 4.54 m/uL (4.30-5.90); WBC 18.3 k/uL (3.8-10.6); WBC (Perox) 18.48
[2017-04-18 04:42] LABS: ALT 43 U/L (21-72); AST 44 U/L (17-59); Alkaline Phosphatase 112 U/L (38-126); Anion Gap 6 mmol/L; Bilirubin, Delta 0.8 mg/dL (0.0-0.2); Blood Urea Nitrogen 10 mg/dL (9-20); Carbon Dioxide 28 mmol/L (22-30); Chloride 117 mmol/L (98-107); Glucose 105 mg/dL (74-99); Magnesium 1.9 mg/dL (1.6-2.3); Non-African American GFR(MDRD) >60 (>60 ml/min/1.73 sqM); Potassium 3.6 mmol/L (3.5-5.1); Sodium 151 mmol/L (137-145); Total Bilirubin 1.9 mg/dL (0.2-1.3)
[2017-04-18 04:55] LABS: RDW 25.9 % (11.5-15.5)
[2017-04-18] MEDS: DEXTROSE 5% IN WATER 1,000 ML IV SCH ×3 (05:26→23:07)
[2017-04-18] MEDS: FAMOTIDINE 20 MG TAB PO SCH ×3 (08:52→22:12)
[2017-04-18] MEDS: METOPROLOL TARTRATE 50 MG TAB PO SCH ×3 (08:52→22:12)
[2017-04-18] MEDS: FERROUS SULFATE 325 MG TAB PO SCH (08:52)
[2017-04-18] MEDS: LISINOPRIL 5 MG TAB PO SCH (08:52)
[2017-04-18] MEDS: THIAMINE 100 MG TAB PO SCH (08:53)
[2017-04-18] MEDS: ENOXAPARIN 80 MG/0.8 ML SYRINGE SQ SCH ×2 (09:45→21:26)
[2017-04-18] MEDS: ASPIRIN 300 MG SUPP RECTAL SCH (09:45)
[2017-04-18] MEDS: SYMBICORT 160-4.5 MCG INHALER INHALATION SCH ×2 (11:38→20:17)
[2017-04-18] MEDS: TIOTROPIUM 18 MCG/PUFF INHALER INHALATION SCH (11:38)
--- NOTE | 2017-04-18 15:18 | P.PN ---
Subjective This is a 71-year-old gentleman that was admitted to the hospital with some changes in mental status. Patient was noted to have hypercalcemia on admission. Patient apparently has had a squamous cell cancer of the left-sided oral cavity. Patient was noted to have left-sided lymphadenopathy on this admission has underwent a biopsy from the axillary region. During this. Patient apparently also underwent a alcohol withdrawal. Patient was noted to have blood pressure issues likely secondary to alcohol withdrawal. Patient was noted to have metastatic lung cancer positive on lymph node biopsy. Patient was also noted to have some concern for metastases to the brain. Patient was seen by our oncologist on staff here recommended further testing to attempt a targeted chemotherapy with stage IV lung CA. Comfort measures were also apparently offered. Today on 04/16/2017 Patient is not arousable currently on 2 L a supplement oxygen and has been this way in the last 24 hours according to the automotive mechanic was around however no changes were reported at that time as well 04/17/2017 Is awake today is able to answer some questions family was at bedside states that he is improved slightly Denies having any additional complaints No overnight events reported. 04/18/2017 Patient is awake today is able to answer questions appropriately Patient failed his swallow eval however a modified diet is recommended with some risk of aspiration distress discussed with the family as well Objective - Vital Signs Vital signs: Vital Signs Temp 97.4 F L 04/18/17 07:00 Pulse 96 04/18/17 07:00 Resp 16 04/18/17 08:00 BP 152/81 04/18/17 07:00 Pulse Ox 92 L 04/18/17 07:46 Intake & Output 04/17/17 04/18/17 04/18/17 18:59 06:59 18:59 Intake Total 1300 Balance 1300 Weight 70.5 kg 70.5 kg Intake: IV 800 Ampicillin-Sulbactam 3 gm 100 In Sodium Chloride 0.9% 100 ml @ 100 mls/hr IVPB Q6HR GAIL Rx#:[id number] Dextrose 5% in Water 1, 700 000 ml @ 125 mls/hr IV . Q8H GAIL Rx#:[id number] Intake, IV Titration 500 Amount Potassium Chloride 10 meq 500 Lidocaine 2% Inj 10 mg In Sodium Chloride 0.9% 100 ml @ 100 mls/hr IV Q1HR GAIL Rx#:[id number] Other: Voiding Method Diaper Diaper Diaper # Voids 2 2 - Exam Appearance awake is answering questions appropriately today Lungs coarse breath sounds however this is from the upper airways no rhonchi or wheezing Heart S1-S2 heard no murmurs Abdomen is soft nontender organomegaly Neuro exam patient is moving all 4 extremities Lower ext no edema noted - Labs CBC & Chem 7: 04/18/17 03:57 04/18/17 09:23 Labs: Abnormal Lab Results - Last 24 Hours (Table) 04/17/17 04/18/17 04/18/17 Range/Units 19:23 00:13 03:57 WBC 18.3 H (3.8-10.6) k/uL Hgb 10.7 L (13.0-17.5) gm/dL MCH 23.5 L (25.0-35.0) pg MCHC 27.3 L (31.0-37.0) g/dL RDW 25.9 H (11.5-15.5) % Plt Count 105 L (150-450) k/uL Neutrophils # 15.1 H (1.3-7.7) k/uL Sodium (137-145) mmol/L Potassium 3.2 L 3.3 L (3.5-5.1) mmol/L Chloride (98-107) mmol/L Glucose (74-99) mg/dL Calcium (8.4-10.2) mg/dL Total Bilirubin (0.2-1.3) mg/dL Delta Bilirubin (0.0-0.2) mg/dL Total Protein (6.3-8.2) g/dL Albumin (3.5-5.0) g/dL 04/18/17 Range/Units 03:57 WBC (3.8-10.6) k/uL Hgb (13.0-17.5) gm/dL MCH (25.0-35.0) pg MCHC (31.0-37.0) g/dL RDW (11.5-15.5) % Plt Count (150-450) k/uL Neutrophils # (1.3-7.7) k/uL Sodium 151 H (137-145) mmol/L Potassium (3.5-5.1) mmol/L Chloride 117 H (98-107) mmol/L Glucose 105 H (74-99) mg/dL Calcium 12.0 H (8.4-10.2) mg/dL Total Bilirubin 1.9 H (0.2-1.3) mg/dL Delta Bilirubin 0.8 H (0.0-0.2) mg/dL Total Protein 6.0 L (6.3-8.2) g/dL Albumin 3.0 L (3.5-5.0) g/dL Microbiology - Last 24 Hours (Table) 04/15/17 11:23 Blood Culture - Preliminary Blood No Growth after 72 hours 04/13/17 15:35 Blood Culture - Final Blood 04/13/17 15:38 Blood Culture Gram Stain - Final Blood Blood Culture - Final Staph capitis SS capitis Assessment and Plan Plan: 1 metastatic non-small lung cancer #2 bacteremia which is likely contamination #3 acute alcohol withdrawal #4 acute encephalopathy likely combination of toxic and metabolic #5 malignancy-related hyperglycemia #6 COPD #7 hypertension #8 venous thrombo embolism in the left upper extremity Plan Judicious use of narcotics I did discuss goals of care with the family patient will be at DO NOT RESUSCITATE Patient is more awake. We'll restart feeding. Encourage fluid intake Repeat labs in the a.m. Aspiration precautions will be strictly enforced continue with D5W at 125 mL per hour we'll start free water at 200 mL every 6 hours via tube feeding as well prognosis is still poor Has extremely poor functional status. Patient today does state that he would attempt immunotherapy if recommended . From the previous oncology note patient is being tested for PLD 1 inhibitor
--- NOTE | 2017-04-18 16:31 | P.PN ---
Subjective Principal diagnosis: Patient is a 71-year-old male who is being followed by the neurology service for altered mental status. 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 He treats with Dr. Lares and was found to have significant hypercalcemia of greater than 13. Oncology is following. Patient had been becoming less responsive and a CT scan of the brain was done which showed evidence of subacute ischemia involving the left basal ganglia. An MRI of the brain with and without contrast was done which showed no evidence of any acute ischemia. There were however old ischemic changes. There was no abnormal enhancement on the MRI. At the time of my evaluation, patient is resting comfortably in bed and is responsive and conversant. No seizure-like activity has been reported. Family is at the bedside Objective - Vital Signs Vital signs: Vital Signs Temp 97.4 F L 04/18/17 07:00 Pulse 96 04/18/17 07:00 Resp 16 04/18/17 08:00 BP 152/81 04/18/17 07:00 Pulse Ox 92 L 04/18/17 07:46 Intake & Output 04/17/17 04/18/17 04/18/17 18:59 06:59 18:59 Intake Total 1300 875 Balance 1300 875 Weight 70.5 kg 70.5 kg Intake: IV 800 875 Ampicillin-Sulbactam 3 gm 100 In Sodium Chloride 0.9% 100 ml @ 100 mls/hr IVPB Q6HR [facility] Rx#:[id number] Dextrose 5% in Water 1, 700 875 000 ml @ 125 mls/hr IV . Q8H [facility] Rx#:[id number] Intake, IV Titration 500 Amount Potassium Chloride 10 meq 500 Lidocaine 2% Inj 10 mg In Sodium Chloride 0.9% 100 ml @ 100 mls/hr IV Q1HR [facility] Rx#:[id number] Other: Voiding Method Diaper Diaper Diaper # Voids 2 2 2 - Exam PHYSICAL EXAM: GENERAL APPEARANCE: Patient is a male who appears to be in no acute distress. HEENT: Normocephalic, atraumatic, no obvious facial asymmetry is seen. Neck is supple with no masses felt. CARDIOVASCULAR: Regular rate and rhythm. ABDOMEN: Nontender, nondistended. EXTREMITIES: Shows significant edema in the left upper extremity. NEUROLOGICAL EXAM: Patient is awake, alert, and oriented 3. Language is normal and speech is mildly dysarthric. This may be due in part to oral lesions. Patient follows commands and moves all extremities purposefully. No obvious lateralizing weakness is seen. No obvious facial asymmetry is noted. Strength is 3+/5 in bilateral lower extremities and 4/5 in right upper extremity and 3+/5 in left upper extremity. No tremors or seizure-like activity is seen. - Labs CBC & Chem 7: 04/18/17 03:57 04/18/17 09:23 Labs: Abnormal Lab Results - Last 24 Hours (Table) 04/17/17 04/18/17 04/18/17 Range/Units 19:23 00:13 03:57 WBC 18.3 H (3.8-10.6) k/uL Hgb 10.7 L (13.0-17.5) gm/dL MCH 23.5 L (25.0-35.0) pg MCHC 27.3 L (31.0-37.0) g/dL RDW 25.9 H (11.5-15.5) % Plt Count 105 L (150-450) k/uL Neutrophils # 15.1 H (1.3-7.7) k/uL Sodium (137-145) mmol/L Potassium 3.2 L 3.3 L (3.5-5.1) mmol/L Chloride (98-107) mmol/L Glucose (74-99) mg/dL Calcium (8.4-10.2) mg/dL Total Bilirubin (0.2-1.3) mg/dL Delta Bilirubin (0.0-0.2) mg/dL Total Protein (6.3-8.2) g/dL Albumin (3.5-5.0) g/dL 04/18/17 Range/Units 03:57 WBC (3.8-10.6) k/uL Hgb (13.0-17.5) gm/dL MCH (25.0-35.0) pg MCHC (31.0-37.0) g/dL RDW (11.5-15.5) % Plt Count (150-450) k/uL Neutrophils # (1.3-7.7) k/uL Sodium 151 H (137-145) mmol/L Potassium (3.5-5.1) mmol/L Chloride 117 H (98-107) mmol/L Glucose 105 H (74-99) mg/dL Calcium 12.0 H (8.4-10.2) mg/dL Total Bilirubin 1.9 H (0.2-1.3) mg/dL Delta Bilirubin 0.8 H (0.0-0.2) mg/dL Total Protein 6.0 L (6.3-8.2) g/dL Albumin 3.0 L (3.5-5.0) g/dL Microbiology - Last 24 Hours (Table) 04/15/17 11:23 Blood Culture - Preliminary Blood No Growth after 72 hours 04/13/17 15:35 Blood Culture - Final Blood 04/13/17 15:38 Blood Culture Gram Stain - Final Blood Blood Culture - Final Staph capitis SS capitis Assessment and Plan (1) Head and neck cancer Status: Acute (2) Squamous cell lung cancer Status: Acute (3) Acute exacerbation of chronic obstructive pulmonary disease (COPD) Status: Acute (4) Anemia Status: Acute Plan: Recommendations: Patient is more responsive today as compared to yesterday. As you recall, CT scan of the brain did show some findings that were concerning for subacute lacunar infarct left basal ganglia. Follow-up MRI was done with and without contrast which showed no evidence of any acute ischemia, but it did show significant chronic ischemic changes. There is no abnormal enhancement to suggest any brain metastasis. Patient's altered mental status is most likely due to acute metabolic encephalopathy. Patient is also likely to have encephalopathy due alcohol withdrawal. EEG was done and results are pending. Seizure activity is thought to be less likely reason for his altered mental status. Given patient's neoplastic comorbidities, prognosis is overall quite poor. Patient was changed to DO NOT RESUSCITATE status. Continue current medical management. Barring any pathology in the EEG, I will continue to follow with you on an as-needed basis. Feel free to call with any questions or concerns. I performed an examination of the patient and discussed the management with the METAL SPRAYER. I have reviewed the METAL SPRAYER notes and agree with the findings and plan of care.
--- NOTE | 2017-04-18 18:15 | P.PN ---
Subjective The patient is now more awake and responsive. He is still drowsy and falls off to sleep now and then. He is insisting on being allowed to eat, but was felt to be at some risk for aspiration on swallowing study. No obvious bleeding noted. Left upper extremity remains quite swollen Objective - Vital Signs Vital signs: Vital Signs Temp 96.9 F L 04/18/17 15:00 Pulse 94 04/18/17 15:00 Resp 16 04/18/17 16:00 BP 155/70 04/18/17 15:00 Pulse Ox 94 L 04/18/17 15:00 Intake & Output 04/17/17 04/18/17 04/18/17 18:59 06:59 18:59 Intake Total 1300 875 Balance 1300 875 Weight 70.5 kg 90.5 kg Intake: IV 800 875 Ampicillin-Sulbactam 3 gm 100 In Sodium Chloride 0.9% 100 ml @ 100 mls/hr IVPB Q6HR [facility] Rx#:[id number] Dextrose 5% in Water 1, 700 875 000 ml @ 125 mls/hr IV . Q8H [facility] Rx#:[id number] Intake, IV Titration 500 Amount Potassium Chloride 10 meq 500 Lidocaine 2% Inj 10 mg In Sodium Chloride 0.9% 100 ml @ 100 mls/hr IV Q1HR [facility] Rx#:[id number] Other: Voiding Method Diaper Diaper Diaper # Voids 2 2 2 - Constitutional General appearance: Present: no acute distress - EENT Eyes: Present: EOMI, PERRLA ENT: Present: hearing grossly normal, other (Whitish exudate on tongue) - Neck Neck: Present: lymphadenopathy - Respiratory Respiratory: bilateral: diminished - Cardiovascular Rhythm: regular Heart sounds: normal: S1, S2 - Gastrointestinal General gastrointestinal: Present: decreased bowel sounds, soft - Integumentary Integumentary: Present: normal - Neurologic Neurologic: Present: CNII-XII intact - Musculoskeletal Musculoskeletal: Present: left sided weakness (Upper extremity, due to swelling from DVT) - Psychiatric Psychiatric Comment(s): Still quite lethargic, and asleep intermittently. Does follow simple commands appropriately. - Labs CBC & Chem 7: 04/18/17 03:57 04/18/17 09:23 Labs: Abnormal Lab Results - Last 24 Hours (Table) 04/17/17 04/18/17 04/18/17 Range/Units 19:23 00:13 03:57 WBC 18.3 H (3.8-10.6) k/uL Hgb 10.7 L (13.0-17.5) gm/dL MCH 23.5 L (25.0-35.0) pg MCHC 27.3 L (31.0-37.0) g/dL RDW 25.9 H (11.5-15.5) % Plt Count 105 L (150-450) k/uL Neutrophils # 15.1 H (1.3-7.7) k/uL Sodium (137-145) mmol/L Potassium 3.2 L 3.3 L (3.5-5.1) mmol/L Chloride (98-107) mmol/L Glucose (74-99) mg/dL Calcium (8.4-10.2) mg/dL Total Bilirubin (0.2-1.3) mg/dL Delta Bilirubin (0.0-0.2) mg/dL Total Protein (6.3-8.2) g/dL Albumin (3.5-5.0) g/dL 04/18/17 Range/Units 03:57 WBC (3.8-10.6) k/uL Hgb (13.0-17.5) gm/dL MCH (25.0-35.0) pg MCHC (31.0-37.0) g/dL RDW (11.5-15.5) % Plt Count (150-450) k/uL Neutrophils # (1.3-7.7) k/uL Sodium 151 H (137-145) mmol/L Potassium (3.5-5.1) mmol/L Chloride 117 H (98-107) mmol/L Glucose 105 H (74-99) mg/dL Calcium 12.0 H (8.4-10.2) mg/dL Total Bilirubin 1.9 H (0.2-1.3) mg/dL Delta Bilirubin 0.8 H (0.0-0.2) mg/dL Total Protein 6.0 L (6.3-8.2) g/dL Albumin 3.0 L (3.5-5.0) g/dL Microbiology - Last 24 Hours (Table) 04/15/17 11:23 Blood Culture - Preliminary Blood No Growth after 72 hours 04/13/17 15:35 Blood Culture - Final Blood Assessment and Plan (1) Hypercalcemia Narrative/Plan: The patient has been treated aggressively with hydration, and calcitonin. Despite that, calcium remains elevated at around 12. However he is basically asymptomatic from the hypercalcemia, and did not really have any related symptoms even with a calcium of 13+ in the office. Status: Acute (2) Head and neck cancer Narrative/Plan: I again had a discussion at the bedside, with the patient as well as multiple family members. This included one of his daughters, who had not been present previously. Prognosis, and treatment options were again discussed. Immune based therapy, such as PD1 inhibitor, or EGFR monoclonal antibody are not approved in the front line. The can only be utilized, in patients who have failed or progressed on shinnecock containing chemotherapy. Therefore for active treatment, the patient would need to have at least a trial of shinnecock based chemotherapy. I have major concerns about his ability to tolerate even single agent carboplatin. Currently he is not a candidate for any treatment because of poor performance status. Even if his performance status were to improve to an ECOG 2 (which appears quite unlikely at this time), he would be at high risk of severe side effects due to long-standing history of alcohol use, as well as a strong likelihood according to his children, that he would continue drinking. According to his daughter, the patient himself is unlikely to want any aggressive treatment. She stated that she and her siblings will meet with the patient's to discuss comfort care based approach. The patient's brother on the other hand seems a more inclined for continued supportive care and attempt at active treatment if possible. I therefore suggested to the daughter that discharged home with palliative care would be a reasonable option in this circumstance. If the patient were to improve significantly, he could follow-up in the office to discuss active treatment. The family are well aware, that his cancer is not curable. On the other hand if he did not improve, then he could be transitioned over to full hospice at home. The above plan was also discussed with the admitting service. Status: Acute (3) Anemia Status: Acute
[2017-04-18] MEDS ORDERED: HALOPERIDOL LACTATE 5 MG/ML 1 ML VIAL IM PRN (20:32)
[2017-04-18] MEDS: SALT AND SODA MOUTHWASH 1,000 ML PO SCH ×2 (22:12→23:21)
[2017-04-19] MEDS: SALT AND SODA MOUTHWASH 1,000 ML PO SCH ×5 (05:28→22:32)
[2017-04-19] MEDS: AMPICILLIN-SULBACTAM 3 GM in SODIUM CHLORIDE 0.9% 100 ML IVPB SCH ×3 (05:38→17:25)
[2017-04-19] MEDS: SYMBICORT 160-4.5 MCG INHALER INHALATION SCH ×2 (07:28→20:44)
[2017-04-19] MEDS: TIOTROPIUM 18 MCG/PUFF INHALER INHALATION SCH (07:28)
[2017-04-19 07:42] LABS: Anisocytosis Marked; Basophils % (A) 0 %; CH 22.9; CHCM 26.3; Eosinophils # (A) 0.9 k/uL (0-0.7); Eosinophils % (A) 5 %; HCT 36.9 % (39.0-53.0); HDW 2.92; HGB 10.3 gm/dL (13.0-17.5); Hypochromasia Marked; Luc # (Auto) 0.14; Luc % (Auto) 1; Lymphocytes # (A) 1.5 k/uL (1.0-4.8); Lymphocytes % (A) 9 %; MCH 24.2 pg (25.0-35.0); MCHC 27.9 g/dL (31.0-37.0); Macrocytosis Slight; Mean Platelet Volume 7.6; Microcytosis Slight; Monocytes # (A) 0.6 k/uL (0-1.0); Monocytes % (A) 3 %; Neutrophils # (A) 13.9 k/uL (1.3-7.7); Neutrophils % (A) 82 %; RBC 4.24 m/uL (4.30-5.90); WBC (Perox) 18.18
[2017-04-19 07:47] LABS: RDW 26.3 % (11.5-15.5)
[2017-04-19 07:58] LABS: ALT 40 U/L (21-72); AST 46 U/L (17-59); Alkaline Phosphatase 127 U/L (38-126); Anion Gap 6 mmol/L; Blood Urea Nitrogen 10 mg/dL (9-20); Calcium 12.4 mg/dL (8.4-10.2); Carbon Dioxide 30 mmol/L (22-30); Chloride 113 mmol/L (98-107); Glucose 108 mg/dL (74-99); Magnesium 1.8 mg/dL (1.6-2.3); Non-African American GFR(MDRD) >60 (>60 ml/min/1.73 sqM); Potassium 3.4 mmol/L (3.5-5.1); Sodium 149 mmol/L (137-145); Total Bilirubin 2.1 mg/dL (0.2-1.3); Total Protein 6.2 g/dL (6.3-8.2)
[2017-04-19] MEDS: METOPROLOL TARTRATE 50 MG TAB PO SCH ×2 (08:18→22:31)
[2017-04-19] MEDS: FAMOTIDINE 20 MG TAB PO SCH ×2 (08:18→22:31)
[2017-04-19] MEDS: THIAMINE 100 MG TAB PO SCH (08:18)
[2017-04-19] MEDS: FERROUS SULFATE 325 MG TAB PO SCH (08:18)
[2017-04-19] MEDS: ENOXAPARIN 80 MG/0.8 ML SYRINGE SQ SCH ×2 (08:18→22:31)
[2017-04-19] MEDS: LISINOPRIL 5 MG TAB PO SCH (08:18)
--- NOTE | 2017-04-19 08:29 | XR ---
EXAMINATION TYPE: XR hand complete RT DATE OF EXAM: 04/18/2017 9:08 PM COMPARISON: 05/10/2014 HISTORY: 71-year-old male injury to hand TECHNIQUE: 3 views FINDINGS: Osteoarthritic changes are seen throughout the IP joints and at the base of the thumb. Ther e is old healed, angulated fracture deformity at the distal radius. Secondary positive ulnar variance . Loose body dorsally at the carpus. Suspect some underlying radiocarpal joint degenerative change. N o acute fracture or dislocation is clearly seen. IMPRESSION: Osteoarthritic changes throughout with old healed Colles' fracture deformity with secondary positive ulnar variance. No clear acute osseous abnormality is seen.
[2017-04-19] MEDS: CALCITONIN INJ 200 UNIT/ML (MDV) VIAL SUBDERMAL SCH (09:39)
[2017-04-19] MEDS: ALBUTEROL NEBULIZED 2.5 MG/3 ML INHALATION PRN ×3 (10:15→20:44)
[2017-04-19] MEDS: ASPIRIN 300 MG SUPP RECTAL SCH (10:53)
[2017-04-19] MEDS: DEXTROSE 5% IN WATER 1,000 ML IV SCH ×2 (14:33→14:34)
--- NOTE | 2017-04-19 15:53 | P.PN ---
Subjective This is a 71-year-old gentleman that was admitted to the hospital with some changes in mental status. Patient was noted to have hypercalcemia on admission. Patient apparently has had a squamous cell cancer of the left-sided oral cavity. Patient was noted to have left-sided lymphadenopathy on this admission has underwent a biopsy from the axillary region. During this. Patient apparently also underwent a alcohol withdrawal. Patient was noted to have blood pressure issues likely secondary to alcohol withdrawal. Patient was noted to have metastatic lung cancer positive on lymph node biopsy. Patient was also noted to have some concern for metastases to the brain. Patient was seen by our oncologist on staff here recommended further testing to attempt a targeted chemotherapy with metastatic squamous cell cancer of the head and neck Comfort measures were also apparently offered. Today on 04/16/2017 Patient is not arousable currently on 2 L a supplement oxygen and has been this way in the last 24 hours according to the juvenile officer was around however no changes were reported at that time as well 04/17/2017 Is awake today is able to answer some questions family was at bedside states that he is improved slightly Denies having any additional complaints No overnight events reported. 04/18/2017 Patient is awake today is able to answer questions appropriately Patient failed his swallow eval however a modified diet is recommended with some risk of aspiration distress discussed with the family as well 04/19/2017 He is awake answering questions patient states that he wants to go home No additional complaints are reported except for pain in his back Objective - Vital Signs Vital signs: Vital Signs Temp 96.9 F L 04/19/17 07:00 Pulse 92 04/19/17 10:22 Resp 20 04/19/17 07:00 BP 146/73 04/19/17 07:00 Pulse Ox 98 04/19/17 07:00 Intake & Output 04/18/17 04/19/17 04/19/17 18:59 06:59 18:59 Intake Total 875 1350 1000 Balance 875 1350 1000 Weight 90.5 kg 90.5 kg 90 kg Intake: IV 875 1350 Ampicillin-Sulbactam 3 gm 100 In Sodium Chloride 0.9% 100 ml @ 100 mls/hr IVPB Q6HR [facility] Rx#:[id number] Dextrose 5% in Water 1, 875 1250 000 ml @ 125 mls/hr IV . Q8H [facility] Rx#:[id number] Intake, IV Titration 1000 Amount Dextrose 5% in Water 1, 1000 000 ml @ 125 mls/hr IV . Q8H [facility] Rx#:[id number] Other: Voiding Method Diaper Diaper Diaper # Voids 2 1 1 - Exam Appearance awake is answering questions appropriately today Lungs coarse breath sounds however this is from the upper airways no rhonchi or wheezing Heart S1-S2 heard no murmurs Abdomen is soft nontender organomegaly Neuro exam patient is moving all 4 extremities Lower ext no edema noted - Labs CBC & Chem 7: 04/19/17 07:12 04/19/17 07:12 Labs: Abnormal Lab Results - Last 24 Hours (Table) 04/19/17 04/19/17 Range/Units 07:12 07:12 WBC 17.0 H (3.8-10.6) k/uL RBC 4.24 L (4.30-5.90) m/uL Hgb 10.3 L (13.0-17.5) gm/dL Hct 36.9 L (39.0-53.0) % MCH 24.2 L (25.0-35.0) pg MCHC 27.9 L (31.0-37.0) g/dL RDW 26.3 H (11.5-15.5) % Plt Count 100 L (150-450) k/uL Neutrophils # 13.9 H (1.3-7.7) k/uL Eosinophils # 0.9 H (0-0.7) k/uL Sodium 149 H (137-145) mmol/L Potassium 3.4 L (3.5-5.1) mmol/L Chloride 113 H (98-107) mmol/L Glucose 108 H (74-99) mg/dL Calcium 12.4 H (8.4-10.2) mg/dL Total Bilirubin 2.1 H (0.2-1.3) mg/dL Alkaline Phosphatase 127 H (38-126) U/L Total Protein 6.2 L (6.3-8.2) g/dL Albumin 3.1 L (3.5-5.0) g/dL Microbiology - Last 24 Hours (Table) 04/15/17 11:23 Blood Culture - Preliminary Blood No Growth after 96 hours Assessment and Plan Plan: 1 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 Discussed the case with the family again. There is no further treatment options patient wants to go home so home with hospice would be ideal discussed continuing fluid resuscitation to improve serum sodium currently 149 patient mentation is improved Proved oral intake. Aspiration precautions will be strictly enforced continue with D5W at 125 mL per hour prognosis is still poor Has extremely poor functional status. P
[2017-04-20] MEDS: DEXTROSE 5% IN WATER 1,000 ML IV SCH ×4 (00:46→20:35)
[2017-04-20] MEDS: AMPICILLIN-SULBACTAM 3 GM in SODIUM CHLORIDE 0.9% 100 ML IVPB SCH ×4 (00:47→17:33)
[2017-04-20] MEDS: SALT AND SODA MOUTHWASH 1,000 ML PO SCH ×6 (00:48→21:33)
[2017-04-20] MEDS: FAMOTIDINE 20 MG TAB PO SCH ×2 (08:55→20:35)
[2017-04-20] MEDS: ENOXAPARIN 80 MG/0.8 ML SYRINGE SQ SCH ×2 (08:55→20:34)
[2017-04-20] MEDS: THIAMINE 100 MG TAB PO SCH (08:56)
[2017-04-20] MEDS: METOPROLOL TARTRATE 50 MG TAB PO SCH ×2 (08:56→20:35)
[2017-04-20] MEDS: LISINOPRIL 5 MG TAB PO SCH (08:56)
[2017-04-20] MEDS: SYMBICORT 160-4.5 MCG INHALER INHALATION SCH ×2 (09:28→21:18)
[2017-04-20] MEDS: TIOTROPIUM 18 MCG/PUFF INHALER INHALATION SCH (09:28)
[2017-04-20] MEDS: FERROUS SULFATE 325 MG TAB PO SCH (10:00)
[2017-04-20] MEDS: ALBUTEROL NEBULIZED 2.5 MG/3 ML INHALATION PRN ×2 (11:03→16:02)
--- NOTE | 2017-04-20 18:51 | P.PN ---
Subjective This is a 71-year-old gentleman that was admitted to the hospital with some changes in mental status. Patient was noted to have hypercalcemia on admission. Patient apparently has had a squamous cell cancer of the left-sided oral cavity. Patient was noted to have left-sided lymphadenopathy on this admission has underwent a biopsy from the axillary region. During this. Patient apparently also underwent a alcohol withdrawal. Patient was noted to have blood pressure issues likely secondary to alcohol withdrawal. Patient was noted to have metastatic lung cancer positive on lymph node biopsy. Patient was also noted to have some concern for metastases to the brain. Patient was seen by our oncologist on staff here recommended further testing to attempt a targeted chemotherapy with metastatic squamous cell cancer of the head and neck Comfort measures were also apparently offered. Today on 04/16/2017 Patient is not arousable currently on 2 L a supplement oxygen and has been this way in the last 24 hours according to the smooth plater was around however no changes were reported at that time as well 04/17/2017 Is awake today is able to answer some questions family was at bedside states that he is improved slightly Denies having any additional complaints No overnight events reported. 04/18/2017 Patient is awake today is able to answer questions appropriately Patient failed his swallow eval however a modified diet is recommended with some risk of aspiration distress discussed with the family as well 04/19/2017 He is awake answering questions patient states that he wants to go home No additional complaints are reported except for pain in his back 04/20/17 is awake had a bm no additonal complaints improved mentation Objective - Vital Signs Vital signs: Vital Signs Temp 96.9 F L 04/20/17 15:00 Pulse 76 04/20/17 16:16 Resp 20 04/20/17 15:00 BP 119/50 04/20/17 15:00 Pulse Ox 93 L 04/20/17 15:00 Intake & Output 04/19/17 04/20/17 04/20/17 18:59 06:59 18:59 Intake Total 1000 1000 Balance 1000 1000 Weight 90 kg 92 kg Intake: IV 1000 Dextrose 5% in Water 1, 1000 000 ml @ 125 mls/hr IV . Q8H [facility] Rx#:[id number] Intake, IV Titration 1000 Amount Dextrose 5% in Water 1, 1000 000 ml @ 125 mls/hr IV . 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 Discussed the case with the family again. There is no further treatment options patient wants to go home so home with hospice would be ideal discussed continuing fluid resuscitation to improve serum sodium increase oral intake.repeat St eval migdalia/ Aspiration precautions will be strictly enforced continue with D5W at 125 mL per hour prognosis is still poor Has extremely poor functional status.
[2017-04-20] MEDS ORDERED: HALOPERIDOL LACTATE 5 MG/ML 1 ML VIAL IM PRN (21:54)
[2017-04-21] MEDS: AMPICILLIN-SULBACTAM 3 GM in SODIUM CHLORIDE 0.9% 100 ML IVPB SCH ×2 (00:34→05:29)
[2017-04-21] MEDS: SALT AND SODA MOUTHWASH 1,000 ML PO SCH ×4 (00:37→14:34)
[2017-04-21] MEDS: DEXTROSE 5% IN WATER 1,000 ML IV SCH (05:38)
[2017-04-21 08:34] VITALS: BP 173/74; PULSE 72; RESP 20; TEMP 97.4
[2017-04-21 09:00] LABS: ALT 45 U/L (21-72); AST 47 U/L (17-59); Alkaline Phosphatase 126 U/L (38-126); Anion Gap 8 mmol/L; Blood Urea Nitrogen 8 mg/dL (9-20); Calcium 12.4 mg/dL (8.4-10.2); Carbon Dioxide 28 mmol/L (22-30); Chloride 107 mmol/L (98-107); Glucose 91 mg/dL (74-99); Non-African American GFR(MDRD) >60 (>60 ml/min/1.73 sqM); Sodium 143 mmol/L (137-145); Total Bilirubin 1.9 mg/dL (0.2-1.3); Total Protein 5.6 g/dL (6.3-8.2)
[2017-04-21 09:05] LABS: Potassium 2.6 mmol/L (3.5-5.1)
[2017-04-21] MEDS: TIOTROPIUM 18 MCG/PUFF INHALER INHALATION SCH (09:22)
[2017-04-21] MEDS: SYMBICORT 160-4.5 MCG INHALER INHALATION SCH (09:22)
[2017-04-21] MEDS ORDERED: POTASSIUM CHLORIDE 20 MEQ, LIDOCAINE 2% INJ 20 MG in SODIUM CHLORIDE 0.9% 100 ML IVPB SCH (10:00)
[2017-04-21] MEDS: ENOXAPARIN 80 MG/0.8 ML SYRINGE SQ SCH (10:40)
[2017-04-21] MEDS: THIAMINE 100 MG TAB PO SCH (10:41)
[2017-04-21] MEDS: LISINOPRIL 5 MG TAB PO SCH (10:41)
[2017-04-21] MEDS: METOPROLOL TARTRATE 50 MG TAB PO SCH (10:41)
[2017-04-21] MEDS: FERROUS SULFATE 325 MG TAB PO SCH (10:41)
[2017-04-21] MEDS: FAMOTIDINE 20 MG TAB PO SCH (10:41)
[2017-04-21] MEDS: POTASSIUM CHLORIDE 20 MEQ, LIDOCAINE 2% INJ 20 MG in SODIUM CHLORIDE 0.9% 100 ML IVPB SCH ×2 (11:34→14:29)
--- NOTE | 2017-04-21 18:17 | P.DS ---
Providers Date of admission: 04/09/17 23:51 Attending physician: Aisha Sterling Consults: 04/10/17 12:12 Consult Physician Urgent Consulting Provider: Alan Lares Consult Reason/Comments: mouth\throat cancer, hypercalcemia Do you want consulting provider notified?: Yes 04/16/17 11:30 Consult Physician Routine Consulting Provider: Tanya Bonilla Consult Reason/Comments: abn. CT Brain Do you want consulting provider notified?: Yes [facility] Course: This is a 71-year-old gentleman that was admitted to the hospital with some changes in mental status. Patient was noted to have hypercalcemia on admission. Patient apparently has had a squamous cell cancer of the left-sided oral cavity. Patient was noted to have left-sided lymphadenopathy on this admission has underwent a biopsy from the axillary region. During this. Patient apparently also underwent a alcohol withdrawal. Patient was noted to have blood pressure issues likely secondary to alcohol withdrawal. Patient was noted to have metastatic lung cancer positive on lymph node biopsy. Patient was also noted to have some concern for metastases to the brain. Patient was seen by our oncologist on staff here recommended further testing to attempt a targeted chemotherapy with metastatic squamous cell cancer of the head and neck Comfort measures were also apparently offered. Today on 04/16/2017 Patient is not arousable currently on 2 L a supplement oxygen and has been this way in the last 24 hours according to the soda dialyzer was around however no changes were reported at that time as well 04/17/2017 Is awake today is able to answer some questions family was at bedside states that he is improved slightly Denies having any additional complaints No overnight events reported. 04/18/2017 Patient is awake today is able to answer questions appropriately Patient failed his swallow eval however a modified diet is recommended with some risk of aspiration distress discussed with the family as well 04/19/2017 He is awake answering questions patient states that he wants to go home No additional complaints are reported except for pain in his back 04/20/17 is awake had a bm no additonal complaints improved mentation - Exam Appearance awake is answering questions appropriately today Lungs coarse breath sounds however this is from the upper airways no rhonchi or wheezing Heart S1-S2 heard no murmurs Abdomen is soft nontender organomegaly Neuro exam patient is moving all 4 extremities Lower ext no edema noted Assessment and Plan Plan: 1 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 Home with hospice recs: regular diet, comfort measures HTN medications and lovenox to continue No re hospitalization Patient Condition at Discharge: Fair Plan - Discharge Summary New Discharge Prescriptions: Potassium Chloride [K-Tab ER] 20 meq PO DAILY #30 tablet.er Discharge Medication List Albuterol Inhaler [Ventolin Hfa Inhaler] 1 - 2 puff INHALATION RT-QID PRN [History] Albuterol Nebulized [Ventolin Nebulized] 2.5 mg INHALATION RT-Q4H PRN 08/24/16 [ History] Budesonide-Formot 160-4.5 Mcg [Symbicort 160-4.5 Mcg Inhaler] 2 puff INHALATION RT-BID 08/24/16 [History] Omeprazole 40 mg PO AC-BRKFST 08/24/16 [History] Ibuprofen [Motrin] 400 mg PO Q6HR PRN 01/04/17 [History] Metoprolol Tartrate [Lopressor] 25 mg PO BID 03/25/17 [History] Ferrous Sulfate [Feosol] 325 mg PO DAILY #30 tab 03/29/17 [Rx] Thiamine [Vitamin B-1] 100 mg PO DAILY #30 tab 03/29/17 [Rx] Enoxaparin [Lovenox] 80 mg SQ Q12HR syr 04/21/17 [Rx] Lisinopril [Zestril] 5 mg PO DAILY tab 04/21/17 [Rx] Ondansetron [Zofran] 4 mg IVP Q8HR PRN vial 04/21/17 [Rx] Polyethylene Glycol 3350 [Miralax] 17 gm PO DAILY PRN pack 04/21/17 [Rx] Potassium Chloride [K-Tab ER] 20 meq PO DAILY #30 tablet.er 04/21/17 [Rx] Tiotropium 18 Mcg/Puff [Spiriva] 1 puff INHALATION DAILY inhaler 04/21/17 [Rx] Follow up Appointment(s)/Referral(s): Curt Tyson DO [Primary Care Provider] - 1-2 days Patient Instructions/Handouts: Potassium Chloride (By mouth), Hospice (DC), Deep Venous Thrombosis (DC) Discharge Disposition: HOME WITH HOSPICE
--- NOTE | 2017-05-07 11:23 | EEG ---
DATE OF SERVICE: 04/18/2017 INDICATIONS FOR EXAMINATION: Altered mental status. AGE: 71Y DESCRIPTION OF PROCEDURE: This EEG was performed using a 21 channel digital electroencephalograph, following international 10-20 system. DESCRIPTION OF THE RECORDING: From the beginning of the tracing, with the patient's eyes closed, the background rhythm was mostly consisting of 7 Hz theta frequency in the posterior occipital leads. No obvious asymmetry is seen. EKG artifacts are noticed almost throughout the tracing. Photic stimulation was performed with a minimal driving response seen. No pathological waves were elicited. More movement artifacts are noticed near the end of the tracing. The patient remains awake throughout the tracing. No epileptiform discharges were seen. His EKG lead showed regular rate and rhythm. INTERPRETATION: This awake EEG is abnormal due to the presence of generalized slowing of the background rhythm, mostly in the theta range. This is consistent with mild encephalopathy. No epileptiform discharges were seen. The absence of epileptiform discharges does not rule out the diagnosis of epilepsy, therefore, clinical correlation is recommended.
== END 2017-04-21 15:16 | disposition hospice, home (50) | DRG 628 ==
LOC: EC 21:29 → 3SUR 23:51 → 6SEL 04-14 17:44 → 5ONC 04-17 14:04
PROVIDERS: ADMIT Hospitalist; ATTEND Hospitalist
PROC: 07B63ZX Excision of Left Axillary Lymphatic, Percutaneous Approach, Diagnostic (ICD-10-PCS; principal; 2017-04-14)
DX: E83.52 Hypercalcemia (principal); G92 Toxic encephalopathy; E87.0 Hyperosmolality and hypernatremia; C79.89 Secondary malignant neoplasm of other specified sites; C77.9 Secondary and unspecified malignant neoplasm of lymph node, unspecified; I82.622 Acute embolism and thrombosis of deep veins of left upper extremity; C34.90 Malignant neoplasm of unspecified part of unspecified bronchus or lung; J44.1 Chronic obstructive pulmonary disease with (acute) exacerbation; F10.239 Alcohol dependence with withdrawal, unspecified; J98.11 Atelectasis; D69.6 Thrombocytopenia, unspecified; R16.1 Splenomegaly, not elsewhere classified; E86.0 Dehydration; J45.909 Unspecified asthma, uncomplicated; D50.9 Iron deficiency anemia, unspecified; D72.829 Elevated white blood cell count, unspecified; E87.6 Hypokalemia; I10 Essential (primary) hypertension; K21.9 Gastro-esophageal reflux disease without esophagitis; M54.9 Dorsalgia, unspecified; R06.83 Snoring; R45.1 Restlessness and agitation; E66.3 Overweight; Z68.30 Body mass index [BMI] 30.0-30.9, adult; Z79.899 Other long term (current) drug therapy; Z66 Do not resuscitate; Z87.891 Personal history of nicotine dependence; Z82.49 Family history of ischemic heart disease and other diseases of the circulatory system
CPT/HCPCS: 36415; 38505; 70450; 70553; 71010; 71020; 74020; 76942; 80048; 80053; 81003; 82140; 82248; 82306; 82728; 83540; 83550; 83605; 83735; 83880; 83970; 84132; 84466; 84484; 85025; 85610; 85730; 87040; 87077; 87186; 88305; 88341; 88342; 93005; 94640; 94760; 95816

== ENCOUNTER 2017-04-23 10:59 | Inpatient (IN) | payer MEDICAID ==
[2017-04-23 13:57] VITALS: BMI 29.6
[2017-04-23] MEDS ORDERED: SCOPOLAMINE 1.5MG/72HR PATCH TRANSDERM STA (14:11)
[2017-04-23] MEDS ORDERED: ACETAMINOPHEN SUPPOSITORY 650 MG SUPP RECTAL PRN (14:12)
[2017-04-23] MEDS ORDERED: BISACODYL 10 MG SUPP RECTAL PRN (14:13)
[2017-04-23] MEDS ORDERED: PROCHLORPERAZINE 10 MG TAB PO PRN (14:13)
[2017-04-23] MEDS ORDERED: HALOPERIDOL 2 MG TAB PO PRN (14:14)
[2017-04-23] MEDS ORDERED: ONDANSETRON 4 MG TAB PO PRN (14:15)
[2017-04-23] MEDS ORDERED: HALOPERIDOL 5 MG TAB PO SCH (14:30)
[2017-04-23] MEDS ORDERED: HALOPERIDOL ORAL SOLN 10 MG/5 ML CUP PO PRN (15:19)
[2017-04-23] MEDS: IPRATROPIUM-ALBUTEROL 3 ML NEB INHALATION SCH ×3 (15:36→19:58)
--- NOTE | 2017-04-23 17:04 | P.HPIM ---
History of Present Illness H&P Date: 04/23/17 71 yr old with metastatic head and neck cancer was recently discharged home on hospice. pt was admitted to the hospital as pt was more agitated and was threatening his to kill her. Pt was more delirious than on discharge. Pt was brought in to the hospital for symptom control Currently pt is awake but does not answer all questions appropriately. Review of Systems ROS unobtainable: due to mental status Past Medical History Past Medical History: Cancer, COPD, GERD/Reflux, Hypertension Additional Past Medical History / Comment(s): maleria, nebulizer at home. 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 Currently under hospice care. History of Any Multi-Drug Resistant Organisms: None Reported Past Surgical History: Bowel Resection Additional Past Surgical History / Comment(s): colonoscopy Past Anesthesia/Blood Transfusion Reactions: No Reported Reaction Past Psychological History: PTSD Additional Psychological History / Comment(s): Report from hospice nurse and family states pt was having hallucinations and flashbacks from past. Smoking Status: Former smoker Past Alcohol Use History: Daily Additional Past Alcohol Use History / Comment(s): 24 beers daily and occasional vodka and orange juice. Pt has been alcohol free since previous admission to hospital. Past Drug Use History: None Reported - Past Family History Father History Unknown: Yes Mother Family Medical History: COPD Sister(s) Family Medical History: No Reported History Brother(s) Family Medical History: No Reported History Daughter(s) Family Medical History: Myocardial Infarction ([place]) Son(s) Family Medical History: No Reported History Medications and Allergies Home Medications Medication Instructions Recorded Confirmed Type Albuterol Inhaler [Ventolin Hfa 1 - 2 puff INHALATION RT-QID PRN 01/30/16 History Inhaler] Albuterol Nebulized [Ventolin 2.5 mg INHALATION RT-Q4H PRN 08/24/16 04/23/17 History Nebulized] Budesonide-Formot 160-4.5 Mcg 2 puff INHALATION RT-BID 08/24/16 04/23/17 History [Symbicort 160-4.5 Mcg Inhaler] Omeprazole 40 mg PO AC-BRKFST 08/24/16 04/23/17 History Ibuprofen [Motrin] 400 mg PO Q6HR PRN 01/04/17 04/23/17 History Metoprolol Tartrate [Lopressor] 25 mg PO BID 03/25/17 04/23/17 History Tiotropium 18 Mcg/Puff [Spiriva] 1 puff INHALATION RT-DAILY 04/23/17 04/23/17 History Allergies Allergy/AdvReac Type Severity Reaction Status Date / Time No Known Allergies Allergy Verified 04/23/17 12:38 Physical Exam Vitals: Vital Signs Temp Pulse Resp BP Pulse Ox 04/23/17 15:00 102 H 20 151/78 92 L 04/23/17 11:35 97.4 F L 88 20 138/63 93 L Intake and Output 04/23/17 04/23/17 04/23/17 06:59 14:59 22:59 Other: Weight 91 kg Patient Weight 04/24/17 06:59 Weight 91 kg - Constitutional General appearance: disheveled - Respiratory Respiratory: bilateral: diminished, negative: CTA, dullness, rales - Cardiovascular Rhythm: regular - Gastrointestinal General gastrointestinal: no organomegaly, soft - Neurologic Neurologic: CNII-XII intact - Musculoskeletal Musculoskeletal: no gait normal, generalized weakness, no strength equal bilaterally, no right sided weakness, no left sided weakness - Psychiatric Psychiatric: no A&O x's 3, no appropriate affect, no intact judgment & insight Thrombosis Risk Factor Assmnt - Choose All That Apply Any of the Below Risk Factors Present?: Yes Each Factor Represents 1 point: Medical pt on bed rest, Obesity (BMI >25) Other Risk Factors: Yes Each Risk Factor Represents 2 Points: Age 61-74 years Each Risk Factor Represents 3 Points: History of DVT/PE Other congenital or acquired thrombophilia - If yes, enter type in comment: No Thrombosis Risk Factor Assessment Total Risk Factor Score: 7 Thrombosis Risk Factor Assessment Level: High Risk Assessment and Plan Plan: Metstatic head and neck cancer, currently on hospice, Not a candidate for chemo , radiation or immuno therapy Admitted for inpatient hospice care ACute delirium Recent hypernatremia due to poor intake H/o HTN Ongoing tobacco use Plan scopolamine patch modified diet per recent dysphagia haloperidol prn Avoid benzos placement to hospice [place]
[2017-04-23] MEDS: HALOPERIDOL ORAL SOLN 10 MG/5 ML CUP PO SCH ×3 (20:05→20:20)
[2017-04-23] MEDS ORDERED: HALOPERIDOL LACTATE 5 MG/ML 1 ML VIAL IM PRN (20:15)
[2017-04-23] MEDS ORDERED: LORazepam 2 MG/ML SYRINGE IM PRN (20:17)
[2017-04-24] MEDS: IPRATROPIUM-ALBUTEROL 3 ML NEB INHALATION SCH ×4 (08:41→21:00)
[2017-04-24] MEDS: HALOPERIDOL ORAL SOLN 10 MG/5 ML CUP PO SCH ×3 (09:10→20:00)
[2017-04-24] MEDS ORDERED: HALOPERIDOL ORAL SOLN 10 MG/5 ML CUP PO ONE (11:31)
--- NOTE | 2017-04-24 14:19 | CDI ---
In responding to this query, please exercise your independent professional judgment. The [facility] Coding Staff and Clinical Documentation Specialists appreciate your assistance in clarifying documentation, maintaining compliance with coding guidelines, accurately documenting patients condition and capturing severity of illness. The fact that a question is asked does not imply that any particular answer is desired or expected. Communication forms are a method of clarifying documentation and are not made part of the Legal Health Record. Thank you in advance for your clarification. Last Revision, October 2015 Susan Cohen [address] [place] [address] Documentation Clarification Form Date: 04/25/2017 12:17:00 PM From: Francesca Torres CCS, CCDS Admit Date: 04/23/2017 11:44:00 AM Patient Name: Terry Griffiths Visit Number: [id number] Discharge Date: Dr. Po Reed: 71 yo male, admitted to Inpatient Hospice Care for symptom control. Per the H/P: Acute delirium. Per the 04/24 progress note: Acute delirium secondary to scopolamine patch & Ativan, which will be discontinued & patient will be continued on Haldol. History/Risk factors: Oral Cancer with metastatic lymph nodes. Clinical Indicators: Admitted from home with hallucinations, agitated, threatening to kill his . Recently discharged to home with hospice. VS: T 97.4*, P 88-102^, PO 93 2Lnc Treatment: Scopolamine patch, po Haldol, Zofran. Albuterol INH. In your professional opinion, can you please clarify the specific type of encephalopathy, if known? Anoxic Encephalopathy Hypertensive Encephalopathy Metabolic Encephalopathy Toxic Encephalopathy Other, please specify Unable to determine Please document in your progress notes and discharge summary in order to capture severity of illness and risk of mortality. Include clinical findings that support your diagnosis. FYI: Press F11 to launch patient chart. Place X here if this finding has no clinical significance, is not applicable or if you are not able to provide any additional documentation. Thank You. JONAH
[2017-04-24] MEDS ORDERED: HALOPERIDOL ORAL SOLN 10 MG/5 ML CUP PO SCH (18:00)
--- NOTE | 2017-04-24 20:53 | PN ---
Patient is admitted here. Patient is admitted as inpatient hospice for acute symptom management as patient was agitated and was trying to kill his . Patient has episodes of agitation and lorazepam was discontinued. Scopolamine patch was discontinued as well. These are probably causing his agitation and patient was started on Haldol and patient is here for acute symptom management. Patient is pain-free. Medications were reviewed. Medication changes as mentioned. PHYSICAL EXAMINATION: Temperature 97.1, pulse of 98, respiratory rate 20, blood pressure 151/72, saturating at 94% on room air. GENERAL: The patient is comfortable, alert and oriented x3, not in pain. HEENT: Pupils are round and equally reacting to light. EOMI. No scleral icterus. No conjunctival pallor. Normocephalic, atraumatic. No pharyngeal erythema. No thyromegaly. CARDIOVASCULAR: S1 and S2 present. No murmurs, rubs, or gallops. PULMONARY: Chest is clear to auscultation, no wheezing or crackles. ABDOMEN: Soft, nontender, nondistended, normoactive bowel sounds. No palpable organomegaly. MUSCULOSKELETAL: No joint swelling or deformity. EXTREMITIES: No cyanosis, clubbing, or pedal edema. NEUROLOGICAL: Gross neurological examination did not reveal any focal deficits. SKIN: No rashes. ASSESSMENT AND PLAN: 1. Metastatic head and neck cancer. Patient is currently hospice because of agitation. 2. Dysphagia. 3. Acute delirium secondary to scopolamine patch and Ativan, which will be discontinued and patient will be continued on Haldol.
[2017-04-25] MEDS: HALOPERIDOL ORAL SOLN 10 MG/5 ML CUP PO SCH ×6 (00:23→22:27)
[2017-04-25] MEDS: IPRATROPIUM-ALBUTEROL 3 ML NEB INHALATION SCH ×4 (08:35→20:49)
--- NOTE | 2017-04-25 21:48 | PN ---
Patient is admitted secondary to toxic encephalopathy, which is actually hospice and became agitated mostly because of Lorazapam and scopolamine patch and patient tried to hurt his , because of which patient was brought back to the hospital. We are unable to place him in any facility as hospice because of some financial issues. I spent a significant amount of time discussing this with supervisor case loading. His medications were reviewed. Patient is rather comfortable and patient is more quiet today. He is comfortable at this point of time. REVIEW OF SYSTEMS: CONSTITUTIONAL: No fever, no malaise, no fatigue. HEENT: No recent visual problems or hearing problems. Denied any sore throat. CARDIOVASCULAR: No chest pain, orthopnea, PND, no palpitations, no syncope. PULMONARY: No shortness of breath, no cough, no hemoptysis. GASTROINTESTINAL: No diarrhea, no nausea, no vomiting, no abdominal pain. Normoactive bowel sounds. NEUROLOGICAL: No headaches, no weakness, no numbness. HEMATOLOGICAL: Denies any bleeding or petechiae. GENITOURINARY: Denies any burning micturition, frequency, or urgency. MUSCULOSKELETAL/RHEUMATOLOGICAL: Denies any joint pain, swelling, or any muscle pain. ENDOCRINE: Denies any polyuria or polydipsia. The rest of the 14 point review of systems is negative. Medications are reviewed. PHYSICAL EXAMINATION: VITAL SIGNS: Temperature 97.0, pulse 101, respiratory rate 20. Blood pressure is 148/75, saturating at 94% on room air. GENERAL: The patient is alert and oriented x3, not in any acute distress. Well developed, well nourished. HEENT: Pupils are round and equally reacting to light. EOMI. No scleral icterus. No conjunctival pallor. Normocephalic, atraumatic. No pharyngeal erythema. No thyromegaly. CARDIOVASCULAR: S1 and S2 present. No murmurs, rubs, or gallops. PULMONARY: Chest is clear to auscultation, no wheezing or crackles. ABDOMEN: Soft, nontender, nondistended, normoactive bowel sounds. No palpable organomegaly. MUSCULOSKELETAL: No joint swelling or deformity. EXTREMITIES: No cyanosis, clubbing, or pedal edema. NEUROLOGICAL: Gross neurological examination did not reveal any focal deficits. SKIN: No rashes. LABORATORY DATA: None available and not relevant at this point of time. ASSESSMENT: 1. Metastatic head and neck cancer. 2. Toxic encephalopathy and delirium secondary to scopolamine patch and Ativan, which were discontinued. 3. Agitation episodes. 4. Dysphagia secondary to cancer. PLAN: We are awaiting disposition for the patient. It will be either tomorrow or Friday. Please refer to case management evaluation regarding that. Patient is presently hospice. Patient is presently inpatient hospice.
[2017-04-26] MEDS: HALOPERIDOL ORAL SOLN 10 MG/5 ML CUP PO SCH ×7 (01:10→22:49)
[2017-04-26] MEDS: IPRATROPIUM-ALBUTEROL 3 ML NEB INHALATION SCH ×4 (07:29→19:46)
[2017-04-26] MEDS ORDERED: MORPHINE ORAL SOLN 20 MG/1 ML ORAL SYRINGE PO PRN (10:17)
[2017-04-26] MEDS: QUEtiapine 25 MG TAB PO SCH (22:49)
[2017-04-27] MEDS: HALOPERIDOL ORAL SOLN 10 MG/5 ML CUP PO SCH ×5 (05:15→20:32)
[2017-04-27] MEDS: IPRATROPIUM-ALBUTEROL 3 ML NEB INHALATION SCH ×4 (07:33→19:23)
[2017-04-27] MEDS ORDERED: SCOPOLAMINE 1.5MG/72HR PATCH TRANSDERM SCH (11:30)
[2017-04-27] MEDS ORDERED: MORPHINE ORAL SOLN 20 MG/1 ML ORAL SYRINGE PO SCH (12:00)
--- NOTE | 2017-04-27 14:01 | DS ---
DATE OF ADMISSION: 04/23/2017 DATE OF DISCHARGE: Patient is admitted with secondary to agitation and patient was threatening his and patient is appropriate now and patient scopolamine and Lorazapam were discontinued and the patient will be discharged with Haldol and Seroquel today. I do not believe patient will need inpatient treatment at this point of time, although that the limiting thing is the patient's will need help with picking him up to take him to the bathroom. Unfortunately I am unable to send him to a facility for hospice. We will get her home care and patient will be discharged today. Patient is much more comfortable. REVIEW OF SYSTEMS: Not relevant at this point of time. FINAL DIAGNOSES: 1. Metastatic head and neck cancer. Patient is presently hospice. 2. Toxic encephalopathy secondary to scopolamine patch and Ativan. 3. Dysphagia secondary to cancer. Patient will be discharged today. Hospice will follow. Except for the comfort medications, the rest of the medications were discontinued. Spent greater than 35 minutes in total discharge process. Discharge diet as tolerated.
[2017-04-27] MEDS ORDERED: MORPHINE ORAL SOLN 20 MG/1 ML ORAL SYRINGE PO PRN (14:49)
[2017-04-27] MEDS: QUEtiapine 25 MG TAB PO SCH (20:33)
[2017-04-27] MEDS ORDERED: diphenhydrAMINE ELIXIR 25 MG/10 ML CUP PO SCH (21:00)
[2017-04-28] MEDS: HALOPERIDOL ORAL SOLN 10 MG/5 ML CUP PO SCH ×6 (00:17→20:40)
[2017-04-28] MEDS: IPRATROPIUM-ALBUTEROL 3 ML NEB INHALATION SCH ×4 (07:06→20:03)
--- NOTE | 2017-04-28 11:37 | PN ---
Patient is admitted secondary to agitation and agitation is related to anticholinergic medications and lorazepam. The patient is comfortable at this point although does have some congestion and gurgling because of which the patient was started on scopolamine patch. Since he was started on Scopolamine patch, Benadryl will be discontinued. Benadryl was started by hospice for side effects of Haldol, although since the patient is on Seroquel he will not need Benadryl at this time. The patient is comfortable at this point of time, not in pain, not in respiratory distress because of which Roxanol will be changed to p.r.n. Patient was seen and examined. Patient is comfortable, not agitated since last night. The patient gets agitated when family is around. FINAL DIAGNOSES: 1. Hospice, symptomatic management as mentioned above. 2. Toxic encephalopathy secondary to scopolamine patch and Ativan. 3. Dysphagia, for which patient is on modified diet.
[2017-04-28] MEDS: QUEtiapine 25 MG TAB PO SCH (20:40)
[2017-04-29] MEDS: HALOPERIDOL ORAL SOLN 10 MG/5 ML CUP PO SCH ×4 (00:47→15:06)
--- NOTE | 2017-04-29 06:45 | PN ---
The patient is fairly comfortable today, but a bit lethargic today. The patient was seen and examined and patient is not in pain and not in respiratory distress. FINAL DIAGNOSES: 1. Hospice, continue with present symptomatic management. Patient is on hospice secondary cancer. 2. Toxic encephalopathy, which improved patient is quite lethargic today probably related to medications. 3. Dysphagia.
[2017-04-29] MEDS: IPRATROPIUM-ALBUTEROL 3 ML NEB INHALATION SCH ×2 (07:45→11:16)
[2017-04-29 15:23] VITALS: BP 118/70; PULSE 118; RESP 20; TEMP 98.3
--- NOTE | 2017-04-30 08:17 | DS ---
DATE OF ADMISSION: 04/23/2017 DATE OF DISCHARGE: 04/29/2017 The patient is admitted with toxic encephalopathy and threatening his . Patient is being discharged to a facility with hospice today. Patient is comfortable at this point of time. FINAL DIAGNOSES: 1. Hospice, symptomatic management as per hospice services as an outpatient. 2. Toxic encephalopathy, which improved. 3. Dysphagia. Diet as tolerated.
== END 2017-04-29 16:04 | disposition home health service (06) | DRG 92 ==
LOC: 4MS4W 11:44
PROVIDERS: ADMIT Hospitalist; ATTEND Hospitalist
DX: G92 Toxic encephalopathy (principal); C77.9 Secondary and unspecified malignant neoplasm of lymph node, unspecified; C76.0 Malignant neoplasm of head, face and neck; T44.3X5A Adverse effect of other parasympatholytics [anticholinergics and antimuscarinics] and spasmolytics, initial encounter; R13.19 Other dysphagia; J44.9 Chronic obstructive pulmonary disease, unspecified; Z66 Do not resuscitate; Z51.5 Encounter for palliative care; I10 Essential (primary) hypertension; K21.9 Gastro-esophageal reflux disease without esophagitis; T42.4X5A Adverse effect of benzodiazepines, initial encounter; F43.10 Post-traumatic stress disorder, unspecified; R45.850 Homicidal ideations; Z79.1 Long term (current) use of non-steroidal anti-inflammatories (NSAID); Z79.51 Long term (current) use of inhaled steroids; Z63.79 Other stressful life events affecting family and household; Z82.5 Family history of asthma and other chronic lower respiratory diseases; Z82.49 Family history of ischemic heart disease and other diseases of the circulatory system; Z79.899 Other long term (current) drug therapy; Z59.9 Problem related to housing and economic circumstances, unspecified; Z87.891 Personal history of nicotine dependence; Z90.49 Acquired absence of other specified parts of digestive tract; Z86.13 Personal history of malaria
CPT/HCPCS: 94640; 94760